=== PATIENT | male | born 1945 | race Caucasian/White ===

== ENCOUNTER 2017-02-23 11:58 | Inpatient (IN) | payer OTHER ==
--- NOTE | 2017-02-23 12:45 | PDOC ---
History of Present Illness <Nova Noland - Last Filed: 02/23/17 18:02> - General History Source: Patient Exam Limitations: No Limitations - History of Present Illness Initial Comments: 02/23/17 13:15 The patient is a 72 year old male with a significant past medical history of CHF , and A-fib, sent by Dr. Miller to the Emergency Department with shortness of breath and edema. As per the patients son, the patient was admitted to [facility] a couple weeks ago s/p fall and was diagnosed with a liver lac and internal bleeding, as he was on blood thinners. At [place] he was taken off blood thinners and placed on Lasix. Since discharged from [place] the patients son admits to a progressive increase in shortness of breath and edema. The patients son admits that his shortness of breath is exacerbated by standing, and cannot walk due to his symptoms. He also admits to orthopnea. On Monday the patient saw his magneto specialist who increased his Lasix dose to 2 pills per day. Today the patient saw his urologist, Dr. Miller who reported blood in his urine, and referred him to the ER due to his sob and edema. The patient denies cough, fever, and chills. Patient denies palpitations, or diaphoresis. Patient denies dysuria. Patient denies nausea, vomiting, and diarrhea. PCP: Dr. Guillen Urologist: Dr. Miller Wearing Apparel Shaker: Dr. Clement Dwyer <Melany Storm - Last Filed: 02/23/17 18:06> - General Chief Complaint: Shortness of Breath Stated Complaint: PCP SENT Time Seen by Provider: 02/23/17 12:45 Past History - Past Medical History Diabetes: Yes HTN: Yes Hypercholesterolemia: Yes - Psycho/Social/Smoking Cessation Hx Suicidal Ideation: No Smoking History: Never smoked <Nova Noland - Last Filed: 02/23/17 18:02> <Melany Storm - Last Filed: 02/23/17 18:06> - Past Medical History Allergies/Adverse Reactions: Allergies Allergy/AdvReac Type Severity Reaction Status Date / Time codeine Allergy Verified 02/23/17 12:22 iodine Allergy Verified 02/23/17 12:22 Home Medications: Ambulatory Orders Amlodipine Besylate 10 mg PO DAILY 02/23/17 Atenolol [Tenormin -] 25 mg PO DAILY 02/23/17 Citalopram Hydrobromide [Celexa -] 20 mg PO DAILY 02/23/17 Clonidine Patch [Catapres Tts Patch -] 0.2 mg TD WEEKLY 02/23/17 Enalapril/Hydrochlorothiazide [Vaseretic 10-25 mg Tablet] 1 each PO DAILY Hydralazine HCl 10 mg PO DAILY 02/23/17 Insulin Glargine,Hum.rec.anlog [Lantus Solostar PEN (NF)] 24 units SQ DAILY Ipratropium/Albuterol Sulfate [Iprat-Albut 0.5-3(2.5) mg/3 ml] 3 ml IH Q6H PRN 02/23/17 Metformin HCl 500 mg PO BID 02/23/17 Tamsulosin HCl [Flomax] 0.4 mg PO DAILY 02/23/17 Review of Systems - Review of Systems Able to Perform ROS?: Yes Comments:: 02/23/17 13:17 CONSTITUTIONAL: Absent: fever, no chills, no fatigue EYES: Absent: visual changes ENT: Absent: ear pain, no sore throat CARDIOVASCULAR: Absent: chest pain, no palpitations RESPIRATORY: Present: + shortness of breath, + SOB on exertion, + orthopnea Absent: cough ABDOMEN: Present: + abdominal distention secondary to edema GI: Absent: abdominal pain, no nausea, no vomiting, no constipation, no diarrhea GENITOURINARY: Present: + hematuria Absent: dysuria, no frequency MUSCULOSKELETAL: Absent: back pain, no arthralgia, no myalgia SKIN: Absent: rash NEURO: Absent: headache <Melany Storm - Last Filed: 02/23/17 18:06> *Physical Exam - Vital Signs Last Vital Signs Temp Pulse Resp BP Pulse Ox 97.9 F 71 28 H 151/112 97 02/23/17 12:22 02/23/17 12:22 02/23/17 12:22 02/23/17 12:22 02/23/17 12:22 <Nova Noland - Last Filed: 02/23/17 18:02> - Vital Signs Last Vital Signs Temp Pulse Resp BP Pulse Ox 97.9 F 71 28 H 151/112 97 02/23/17 12:22 02/23/17 12:22 02/23/17 12:22 02/23/17 12:22 02/23/17 12:22 - Physical Exam Comments: 02/23/17 13:18 GENERAL: Well developed, well nourished. Awake and alert. No acute distress. HEENT: Normocephalic, atraumatic. PERRLA, EOMI. No conjunctival pallor. Sclera are non- icteric. Moist mucous membranes. Oropharynx is clear. NECK: Supple. Full ROM. No JVD. Carotid pulses 2+ and symmetric, without bruits. No thyromegaly. No lymphadenopathy. CARDIOVASCULAR: Regular rate and rhythm. No murmurs, rubs, or gallops. Distal pulses are 2+ and symmetric. PULMONARY: Decreased breath sounds at lung bases bilaterally. No wheezing, rales or rhonchi. ABDOMINAL: Mildly distended secondary to edema, but nontender. Soft. No rebound or guarding. No organomegaly. Normoactive bowel sounds. MUSCULOSKELETAL Normal range of motion at all joints. No bony deformities or tenderness. No CVA tenderness. EXTREMITIES: 3+ pitting edema to just above the knee bilaterally. No cyanosis. No clubbing. No calf tenderness. SKIN: Warm and dry. Normal capillary refill. No rashes. No jaundice. NEUROLOGICAL: Alert, awake, appropriate. Cranial nerves 2-12 intact. PSYCHIATRIC: Cooperative. Good eye contact. Appropriate mood and affect. <Melany Storm - Last Filed: 02/23/17 18:06> ED Treatment Course - LABORATORY CBC & Chemistry Diagram: 02/23/17 14:42 02/23/17 14:42 <Nova Noland - Last Filed: 02/23/17 18:02> - LABORATORY CBC & Chemistry Diagram: 02/23/17 14:42 02/23/17 14:42 - RADIOLOGY Radiograph Interpretation: 02/23/17 18:06 Chest XRay As reviewed by Dr. Stanislav Collier IMPRESSION: Cardiomegaly and COPD, no acute pathology. <Melany Storm - Last Filed: 02/23/17 18:06> Medical Decision Making - Medical Decision Making 02/23/17 15:16 Pt presents to the ED complaining of a two week history of worsening peripheral edema, shortness of breath, POSADAS and orthopnea. History of CHF, known a fib. Recently admitted to [facility] for liver laceration--anticoagulation was stopped at that time. Patient and family state that patient was feeling better while admitted, but has SOB has been getting gradually worse. On exam, patient is tachypneic and becomes short of breath with just moving in the stretcher. Seen by outpatient magneto specialist, who has doubled his PO lasix with no response. Most likely acute CHF exacerbation. Will treat with lasix and admit to telemetry. <Nova Noland - Last Filed: 02/23/17 18:02> - Medical Decision Making 02/23/17 17:15 Dr. Uribe was called at her office at 4:43. Awaiting call back. 02/23/17 17:59 Dr. Wellington was called at her office at 5:30. Awaiting call back. Dr. Wellington was called at 5:50, and spoke to Dr. Noland about the patient's care. <Melany Storm - Last Filed: 02/23/17 18:06> *DC/Admit/Observation/Transfer - Discharge Dispostion Admit: Yes Decision to Admit order Date/Time: 02/23/17 18:02 <Nova Noland - Last Filed: 02/23/17 18:02> - Attestations Scribe Attestion: 02/23/17 13:18 Documentation prepared by Melany Storm, acting as medical office scheduler for Nova Noland MD. <Melany Storm - Last Filed: 02/23/17 18:06> Diagnosis at time of Disposition: Congestive heart failure Qualifiers: Congestive heart failure type: unspecified congestive heart failure type Congestive heart failure chronicity: acute on chronic Qualified Code(s): I50.9 - Heart failure, unspecified - Referrals Referrals: Stanislaw Guillen MD [Primary Care Provider] -
[2017-02-23] MEDS ORDERED: FUROSEMIDE 40 MG/4 ML INJECTABLE VIAL IVPUSH ONE (13:07)
[2017-02-23] MEDS ORDERED: FUROSEMIDE 40 MG/4 ML INJECTABLE VIAL ONE (13:57)
[2017-02-23 15:23] LABS: BASOPHIL 0.5 % (0-2.0); EOSINOPHIL 0.7 % (0-4.5); MCH 31.1 pg (25.7-33.7); MCHC 32.7 g/dl (32.0-35.9); MEAN CELL VOLUME 95.3 fl (80-96); MEAN PLT VOLUME 8.8 fl (7.5-11.1); NEUTROPHILS 65.8 % (42.8-82.8); PLATELET COUNT 196 K/MM3 (134-434); RDW 16.6 % (11.9-15.9); WHITE BLOOD COUNT 6.8 K/mm3 (4.0-10.0)
[2017-02-23 15:48] LABS: ALBUMIN 3.1 g/dl (3.4-5.0); ANION GAP 9 (8-16); CALCIUM 8.7 mg/dL (8.5-10.1); CO2 28 mmol/L (21-32); GLUCOSE,RANDOM 51 mg/dL (74-106); SGPT/ALT 39 U/L (12-78)
[2017-02-23 15:50] LABS: ALK PHOS 69 U/L (45-117); TROPONIN I < 0.02 ng/ml (0.00-0.05)
[2017-02-23 15:52] LABS: SGOT/AST 37 U/L (15-37)
--- NOTE | 2017-02-23 16:34 | EKG ---
Test Reason : Blood Pressure : / mmHG Vent. Rate : 078 BPM Atrial Rate : 069 BPM P-R Int : 000 ms QRS Dur : 088 ms QT Int : 376 ms P-R-T Axes : 000 013 -37 degrees QTc Int : 428 ms ATRIAL FIBRILLATION POSSIBLE ANTERIOR INFARCT , AGE UNDETERMINED ABNORMAL ECG NO PREVIOUS ECGS AVAILABLE Confirmed by ZEESHAN EMERSON, ELENA ([id number]) on 02/23/2017 4:34:21 PM Referred By: Confirmed By:ELENA BYERS MD
[2017-02-24] MEDS ORDERED: ALBUTEROL SO4 2.5/IPRATROPIUM 0.5 INH SOL 3 ML VIAL.NEB. NEB PRN (02:12)
[2017-02-24 06:04] LABS: BASOPHIL 0.5 % (0-2.0); EOSINOPHIL 1.5 % (0-4.5); MCH 31.4 pg (25.7-33.7); MCHC 32.8 g/dl (32.0-35.9); MEAN CELL VOLUME 95.6 fl (80-96); MEAN PLT VOLUME 7.9 fl (7.5-11.1); NEUTROPHILS 62.8 % (42.8-82.8); PLATELET COUNT 185 K/MM3 (134-434); RDW 16.7 % (11.9-15.9); WHITE BLOOD COUNT 5.7 K/mm3 (4.0-10.0)
[2017-02-24 06:32] LABS: ALBUMIN 3.2 g/dl (3.4-5.0); ALK PHOS 70 U/L (45-117); ANION GAP 6 (8-16); BILIRUBIN,TOTAL 1.1 mg/dL (0.2-1.0); CALCIUM 8.7 mg/dL (8.5-10.1); CO2 33 mmol/L (21-32); CREATININE 1.2 mg/dL (0.7-1.3); GLUCOSE,RANDOM 110 mg/dL (74-106); SGOT/AST 27 U/L (15-37); SGPT/ALT 35 U/L (12-78); TOT PROT 6.9 g/dl (6.4-8.2)
[2017-02-24 06:45] LABS: TROPONIN I < 0.02 ng/ml (0.00-0.05)
[2017-02-24] MEDS ORDERED: metFORMIN HCL 500 MG TABLET (FP) ONE (07:01)
[2017-02-24] MEDS: metFORMIN HCL 500 MG TABLET (FP) PO SCH ×2 (08:09→17:21)
[2017-02-24] MEDS: cloNIDine HCL 0.1 MG TABLET PO SCH ×2 (09:00→22:43)
[2017-02-24] MEDS: TAMSULOSIN HCL 0.4 MG CAP.ER.24H (FP) PO SCH (09:00)
--- NOTE | 2017-02-24 09:00 | CON.CARD ---
Consult Consult Specialty:: Cardiology Referred by:: ER Reason for Consultation:: SOB, edema, chf, afib - History of Present Illness Chief Complaint: SOB, edema History of Present Illness: 72 year old man with a history of afib reportedly taken off AC recently after a fall with liver laceration and bleeding, reported h/o CHF (unknown details), obesity, admitted with c/o progressively worsening sob, LE edema, orthopnea. Pt seen and examined in the ER in [place]. pt states that he was sent to the ER by his urologist who he saw for hematuria due to edema and sob. pt states that he saw his width stripper Dr. Dwyer 3 weeks ago and he believes everything was ok but as report his lasix was increased. PT states he has had progressively worsening sob , edema, and orthopnea for the past several weeks. denies chest pain, palpitations, lightheadedness, dizziness, syncope, or near syncope. - History Source History Provided By: Patient, Medical Record Limitations to Obtaining History: Poor Historian - Past Medical History Cardio/Vascular: Yes: AFIB, CHF, HTN, Hyperlipdemia - Smoking History Smoking history: Never smoked - Social History ADL: Independent History of Recent Travel: No Home Medications - Allergies Allergies/Adverse Reactions: Allergies Allergy/AdvReac Type Severity Reaction Status Date / Time codeine Allergy Verified 02/23/17 12:22 iodine Allergy Verified 02/23/17 12:22 - Home Medications Home Medications: Ambulatory Orders Amlodipine Besylate 10 mg PO DAILY 02/23/17 Atenolol [Tenormin -] 25 mg PO DAILY 02/23/17 Citalopram Hydrobromide [Celexa -] 20 mg PO DAILY 02/23/17 Clonidine HCl 0.2 mg PO BID 02/23/17 Furosemide [Lasix] 40 mg PO DAILY 02/23/17 Insulin Glargine,Hum.rec.anlog [Lantus Solostar PEN (NF)] 24 units SQ DAILY Ipratropium/Albuterol Sulfate [Iprat-Albut 0.5-3(2.5) mg/3 ml] 3 ml IH Q6H PRN 02/23/17 Metformin HCl 500 mg PO BID 02/23/17 Tamsulosin HCl [Flomax] 0.4 mg PO DAILY 02/23/17 Family Disease History - Family Disease History Family History: Denies Review of Systems - Review of Systems Constitutional: denies: No Symptoms, Chills, Diaphoresis, Fever, Lethargy, Loss of Appetite, Malaise, Night Sweats, Unintentional Wgt. Loss, Weakness, Other Eyes: denies: No Symptoms, Blind Spots, Blurred Vision, Double Vision, Eye Pain , Floaters, Photophobia, Recent Change in Vision, Other HENT: denies: No Symptoms, Difficult Swallowing, Ear Discharge, Ear Pain, Epistaxis, Gingival Bleeding, Hearing Loss, Mouth Swelling, Nasal Congestion, Ocular Prosthesis, Throat Pain, Toothache, Ringing in Ears, Other Neck: denies: No Symptoms, Decreased ROM, Lumps, Pain on Movement, Stiffness, Swollen Glands, Tenderness, Other Cardiovascular: reports: Edema, Shortness of Breath. denies: No Symptoms, Chest Pain, Palpitations, Other Respiratory: reports: Exercise Intolerance, Orthopnea, PND, SOB, SOB on Exertion. denies: No Symptoms, Cough, Hemoptysis, Snoring, Wheezing, Other Gastrointestinal: denies: No Symptoms, Abdominal Pain, Bloating, Constipation, Diarrhea, Dysphagia, Indigestion, Melena, Nausea, Rectal Bleeding, Vomiting, Vomiting Blood, Other Genitourinary: reports: Hematuria. denies: No Symptoms, Burning, Discharge, Dysuria, Flank Pain, Frequency, Incontinence, Lesions, Menses, Pain, Testicular Mass, Testicular Pain, Testicular Swelling, Urgency, Vaginal Bleeding, Other Breasts: denies: No Symptoms Reported, See HPI, Breast Implants, Discharge from Nipple, Lumps, Pain, Skin Changes, Other Musculoskeletal: denies: No Symptoms, Back Pain, Crepitus, Decreased ROM, Extremity Pain, Joint Pain, Joint Swelling, Muscle Pain, Muscle Cramps, Muscle Weakness, Other Integumentary: denies: No Symptoms, Blister, Bruising, Change in Color, Eczema, Erythema, Incision, Lesions, Lump, Pallor, Pruritis, Rash, Wound, Other Neurological: denies: No Symptoms, Change in LOC, Change in Speech, Confusion, Dizziness, Headache, Incoordination, Numbness, Parasthesia, Pre-Existing Deficit , Seizure, Syncope, Tremors, Unsteady Gait, Weakness, Other Endocrine: denies: No Symptoms, Excessive Sweating, Flushing, Increased Hunger, Increased Thirst, Intolerance to Cold, Intolerance to Heat, Unexplained Weight Gain, Unexplained Weight Loss, Other Hematology/Lymphatic: denies: No Symptoms, Easily Bruised, Excessive Bleeding, Swollen Glands, Other Psychiatric: denies: No Symptoms, Altered Sleep Pattern, Anxiety, Depression, Hallucinations, Panic, Paranoia, Suicidal, Other - Risk Factors Known Risk Factors: Yes: Hypercholesterolemia, Hypertension Vital Signs: Vital Signs Temperature 98.2 F 02/24/17 07:50 Pulse Rate 82 02/24/17 07:50 Respiratory Rate 16 02/24/17 07:50 Blood Pressure 182/99 02/24/17 07:50 O2 Sat by Pulse Oximetry (%) 95 02/24/17 07:50 Constitutional: Yes: No Distress, Calm, Obese. No: Well Nourished Eyes: Yes: WNL, Conjunctiva Clear, EOM Intact, PERRL HENT: Yes: WNL, Atraumatic, Normocephalic Neck: Yes: WNL, Supple, Trachea Midline Respiratory: Yes: Regular, CTA Bilaterally. No: Rales, Rhonchi, Wheezes Gastrointestinal: Yes: Normal Bowel Sounds, Soft, Abdomen, Obese. No: Distention, Tenderness Renal/: Yes: WNL Cardiovascular: Yes: Pulse Irregular. No: Bradycardia, Tachycardia, Gallop, Rub , Varicosities JVD: No Carotid Bruit: No PMI: Non-Displaced Heart Sounds: Yes: S1, S2. No: Split S2, S3, S4, Clicks, Gallop, Rub, Bruit Murmur: No: Systolic Murmur, Diastolic Murmur Musculoskeletal: Yes: WNL Extremities: Yes: WNL Edema: Yes Edema: LLE: 2+, RLE: 2+ Peripheral Pulses WNL: Yes Peripheral Pulses: 2+ Left Doralis Pedis, 2+ Right Dorsalis Pedis Integumentary: Yes: WNL Neurological: Yes: Alert, Oriented, Cran Nerves II-XII Intact Psychiatric: Yes: Alert, Oriented - Other Data Labs, Other Data: CBC, BMP 02/24/17 05:43 02/24/17 05:43 Troponin, BNP 02/24/17 05:43 Troponin I < 0.02 Troponin, BNP 02/24/17 05:43 Troponin I < 0.02 ekg-afib 78bpm, poor R progression, nsst Echo: Image Reviewed Imaging - Results Chest X-ray: Report Reviewed, Image Reviewed EKG: Report Reviewed, Image Reviewed Other: Report Reviewed, Image Reviewed Assessment/Plan 72 year old man with a history of afib reportedly taken off AC recently after a fall with liver laceration and bleeding, reported h/o CHF (unknown details), obesity, admitted with c/o progressively worsening sob, LE edema, orthopnea. pt states that he was sent to the ER by his urologist who he saw for hematuria due to edema and sob. pt states that he saw his width stripper Dr. Dwyer 3 weeks ago and he believes everything was ok but as report his lasix was increased. SOB-uncertain etiology, likely multifactorial, Lungs are clear, 2+ edema b/l LE Echo prelim reviewed at bedside, normal LV systolic function, full result pending Can cont Lasix for now with caution given elevated bun/creat Pulm evaluation Obtain results of prior work up, pt states he saw a width stripper Dr. Dwyer in [place] 3 weeks ago and he believes there was no problem with his heart cont other home medical regimen for now Afib-HR controlled -cont home atenolol -as per report taken off AC recently at [facility] after a fall with liver laceration and hemorrhage, clarify the details and AC plan that was established HTN-above goal -resume home meds and re-evaluate for adjustment as needed
[2017-02-24] MEDS: CITALOPRAM HYDROBROMIDE 20 MG TABLET (FP) PO SCH (09:01)
[2017-02-24] MEDS: FUROSEMIDE 40 MG/4 ML INJECTABLE VIAL IVPUSH SCH (09:01)
[2017-02-24] MEDS: amLODIPine BESYLATE 10 MG TABLET (FP) PO SCH (09:01)
[2017-02-24] MEDS: ATENOLOL 25 MG TABLET (FP) PO SCH (09:02)
[2017-02-24] MEDS ORDERED: FUROSEMIDE 40 MG TABLET (FP) PO SCH (10:00)
[2017-02-24] MEDS: INSULIN DETEMIR 100 UNITS/ML MDV SQ SCH (11:00)
--- NOTE | 2017-02-24 13:33 | CONSULT ---
Consult - text type - Consultation Consultation Note: The patient is a 72 year old male with a significant past medical history of CHF , and A-fib, comes in with shortness of breath and edema. The patient was admitted to [facility] a couple weeks ago s/p fall and was diagnosed with a liver lac and internal bleeding, as he was on blood thinners. At [place] he was taken off blood thinners and placed on Lasix. Since discharged from [place] he has had progressive increase in shortness of breath and edema. The patients son admits that his shortness of breath is exacerbated by standing, and cannot walk due to his symptoms. He also admits to orthopnea. On Monday the patient saw his bobbin dumper who increased his Lasix dose to 2 pills per day. Today the patient saw his urologist, Dr. Miller who reported blood in his urine, and referred him to the ER due to his sob and edema. The patient denies cough, fever, and chills. Patient denies palpitations, or diaphoresis. Patient denies dysuria. Patient denies nausea, vomiting, and diarrhea. - Past Medical History Diabetes: Yes HTN: Yes Hypercholesterolemia: Yes - Psycho/Social/Smoking Cessation Hx Smoking History: Never smoked Allergies/Adverse Reactions: Allergies Allergy/AdvReac Type Severity Reaction Status Date / Time codeine Allergy Verified 02/23/17 12:22 iodine Allergy Verified 02/23/17 12:22 Home Medications: Ambulatory Orders Amlodipine Besylate 10 mg PO DAILY 02/23/17 Atenolol [Tenormin -] 25 mg PO DAILY 02/23/17 Citalopram Hydrobromide [Celexa -] 20 mg PO DAILY 02/23/17 Clonidine Patch [Catapres Tts Patch -] 0.2 mg TD WEEKLY 02/23/17 Enalapril/Hydrochlorothiazide [Vaseretic 10-25 mg Tablet] 1 each PO DAILY Hydralazine HCl 10 mg PO DAILY 02/23/17 Insulin Glargine,Hum.rec.anlog [Lantus Solostar PEN (NF)] 24 units SQ DAILY Ipratropium/Albuterol Sulfate [Iprat-Albut 0.5-3(2.5) mg/3 ml] 3 ml IH Q6H PRN 02/23/17 Metformin HCl 500 mg PO BID 02/23/17 Tamsulosin HCl [Flomax] 0.4 mg PO DAILY 02/23/17 Home Medication List Medication Instructions Recorded Confirmed Type Amlodipine Besylate 10 mg PO DAILY 02/23/17 02/23/17 History Atenolol [Tenormin -] 25 mg PO DAILY 02/23/17 02/23/17 History Citalopram Hydrobromide [Celexa -] 20 mg PO DAILY 02/23/17 02/23/17 History Clonidine HCl 0.2 mg PO BID 02/23/17 02/23/17 History Furosemide [Lasix] 40 mg PO DAILY 02/23/17 02/23/17 History Insulin Glargine,Hum.rec.anlog 24 units SQ DAILY 02/23/17 02/23/17 History [Lantus Solostar PEN (NF)] Ipratropium/Albuterol Sulfate 3 ml IH Q6H PRN 02/23/17 02/23/17 History [Iprat-Albut 0.5-3(2.5) mg/3 ml] Metformin HCl 500 mg PO BID 02/23/17 02/23/17 History Tamsulosin HCl [Flomax] 0.4 mg PO DAILY 02/23/17 02/23/17 History Active Medications Generic Name Dose Route Start Last Admin Trade Name Freq PRN Reason Stop Dose Admin Albuterol/Ipratropium 1 amp 02/24/17 02:12 Duoneb - NEB Q6H PRN SHORT OF BREATH/WHEEZING Amlodipine Besylate 10 mg 02/24/17 10:00 02/24/17 09:01 Norvasc - PO 10 mg DAILY DELFIN Administration Atenolol 25 mg 02/24/17 10:00 02/24/17 09:02 Tenormin - PO 25 mg DAILY DELFIN Administration Citalopram Hydrobromide 20 mg 02/24/17 10:00 02/24/17 09:01 Celexa - PO 20 mg DAILY DELFIN Administration Clonidine 0.2 mg 02/24/17 10:00 02/24/17 09:00 Catapres - PO 0.2 mg BID DELFIN Administration Furosemide 40 mg 02/24/17 10:00 02/24/17 09:01 Lasix Injection - IVPUSH 40 mg DAILY DELFIN Administration Insulin Detemir 24 units 02/24/17 10:00 02/24/17 11:00 Levemir Vial SQ 24 unit DAILY DELFIN Administration Metformin HCl 500 mg 02/24/17 07:00 02/24/17 08:09 Glucophage - PO 500 mg BIDAC DELFIN Administration Tamsulosin HCl 0.4 mg 02/24/17 08:30 02/24/17 09:00 Flomax - PO 0.4 mg DAILY@0830 DELFIN Administration *Physical Exam - Vital Signs Last Vital Signs Temp Pulse Resp BP Pulse Ox 97.9 F 71 28 H 151/112 97 02/23/17 12:22 02/23/17 12:22 02/23/17 12:22 02/23/17 12:22 02/23/17 12:22 Cor: RSR, No murmurs, No gallops Lungs: Clear to P&A Abd: Soft, Normal bowel sounds, No organomegaly, obese Ext:stasis dermatitis. chronic edema - Abnormal Lab Results 02/23/17 02/23/17 02/24/17 14:42 14:42 05:43 RDW 16.6 H Monocytes % 11.7 H Carbon Dioxide Anion Gap BUN 52 H Random Glucose 51 L Total Bilirubin Creatine Kinase 36 L B-Natriuretic Peptide 3698.69 H Albumin 3.1 L 02/24/17 02/24/17 05:43 05:43 RDW 16.7 H Monocytes % 12.7 H Carbon Dioxide 33 H Anion Gap 6 L BUN 53 H Random Glucose 110 H D Total Bilirubin 1.1 H Creatine Kinase B-Natriuretic Peptide Albumin 3.2 L A/P Pt presents to the ED complaining of a two week history of worsening peripheral edema, shortness of breath, POSADAS and orthopnea. History of CHF, known a fib. Recently admitted to [facility] for liver laceration--anticoagulation was stopped at that time. Patient and family state that patient was feeling better while admitted, but has SOB has been getting gradually worse. On exam, patient is tachypneic and becomes short of breath with just moving in the stretcher. Seen by outpatient bobbin dumper, who has doubled his PO lasix with no response. Most likely acute CHF exacerbation. PAtient does not recall how long he has been on coumadin. He says 6months and ca ,me off 2 weeks ago. He states that he did not fall but says that he was sitting at the counterand stooped forward over the counter. Will need to determine his a/c situation with cardiology team will check PT/PTT check U/S abdomen Reverse AG ratio --check protein studies will follow
[2017-02-24 13:39] VITALS: BMI 35.3
[2017-02-24] MEDS ORDERED: PNEUMOC 13-VAL CONJ-DIP CRM/PF 0.5 ML DISP.SYRIN IM ONE (14:45)
--- NOTE | 2017-02-24 16:39 | HP ---
Admitting History and Physical - Past Medical History Cardiovascular: Yes: AFIB, CHF, HTN, Hyperlipdemia - Smoking History Smoking history: Never smoked - Alcohol/Substance Use Hx Alcohol Use: Yes (occassional beer) - Social History ADL: Independent History of Recent Travel: No Home Medications - Allergies Allergies/Adverse Reactions: Allergies Allergy/AdvReac Type Severity Reaction Status Date / Time codeine Allergy Verified 02/23/17 12:22 iodine Allergy Verified 02/23/17 12:22 - Home Medications Home Medications: Ambulatory Orders Amlodipine Besylate 10 mg PO DAILY 02/23/17 Atenolol [Tenormin -] 25 mg PO DAILY 02/23/17 Citalopram Hydrobromide [Celexa -] 20 mg PO DAILY 02/23/17 Clonidine HCl 0.2 mg PO BID 02/23/17 Furosemide [Lasix] 40 mg PO DAILY 02/23/17 Insulin Glargine,Hum.rec.anlog [Lantus Solostar PEN (NF)] 24 units SQ DAILY Ipratropium/Albuterol Sulfate [Iprat-Albut 0.5-3(2.5) mg/3 ml] 3 ml IH Q6H PRN 02/23/17 Metformin HCl 500 mg PO BID 02/23/17 Tamsulosin HCl [Flomax] 0.4 mg PO DAILY 02/23/17 Physical Examination Vital Signs: Vital Signs Temperature 98.0 F 02/24/17 14:50 Pulse Rate 70 02/24/17 14:50 Respiratory Rate 22 02/24/17 14:50 Blood Pressure 155/94 02/24/17 14:50 O2 Sat by Pulse Oximetry (%) 95 02/24/17 09:55 Labs: CBC, BMP 02/24/17 05:43 02/24/17 05:43
--- NOTE | 2017-02-24 17:11 | PN ---
Progress Note (short form) - Note Progress Note: PULMONARY CONSULTATION DICTATED 02/25/17 IMP DYSPNEA LIKELY CHF AFIB MORBID OBESITY LIKELY OSAS LIVER LACERATION PLAN IV LASIX O2 INHALED BRONCHODILATORS PRN DAILY WTS DUPLEX LOWER EXTREMITIES SLEEP STUDIES OUTPATIENT DR SIMON Problem List - Problems (1) Congestive heart failure Code(s): I50.9 - HEART FAILURE, UNSPECIFIED Qualifiers: Congestive heart failure type: unspecified congestive heart failure type Congestive heart failure chronicity: acute on chronic Qualified Code(s): I50.9 - Heart failure, unspecified (2) Afib Code(s): I48.91 - UNSPECIFIED ATRIAL FIBRILLATION (3) Dyspnea Code(s): R06.00 - DYSPNEA, UNSPECIFIED (4) Morbid (severe) obesity due to excess calories Code(s): E66.01 - MORBID (SEVERE) OBESITY DUE TO EXCESS CALORIES
[2017-02-24] MEDS: LISINOPRIL 5 MG TABLET (FP) PO SCH (17:21)
[2017-02-25] MEDS: metFORMIN HCL 500 MG TABLET (FP) PO SCH ×2 (06:40→18:01)
[2017-02-25 07:22] LABS: INR 1.36 (0.82-1.09)
[2017-02-25 07:25] LABS: ACTIVATED PTT 31.7 SECONDS (26.9-34.4)
[2017-02-25 07:29] LABS: CREATININE 1.2 mg/dL (0.7-1.3); SGOT/AST 19 U/L (15-37); SGPT/ALT 29 U/L (12-78)
[2017-02-25 07:31] LABS: ALBUMIN 2.9 g/dl (3.4-5.0); ANION GAP 8 (8-16); CALCIUM 8.5 mg/dL (8.5-10.1); CO2 32 mmol/L (21-32); GLUCOSE,RANDOM 78 mg/dL (74-106)
[2017-02-25 07:39] LABS: ALK PHOS 66 U/L (45-117); BASOPHIL 0.8 % (0-2.0); EOSINOPHIL 2.5 % (0-4.5); FERRITIN 444.742 ng/ml (16.4-293.9); FREE T4 1.16 ng/dl (0.76-1.16); MCHC 33.4 g/dl (32.0-35.9); MEAN CELL VOLUME 95.8 fl (80-96); MEAN PLT VOLUME 8.1 fl (7.5-11.1); NEUTROPHILS 69.3 % (42.8-82.8); PLATELET COUNT 158 K/MM3 (134-434); RDW 16.9 % (11.9-15.9); THYROID STIMULATING HORMONE 1.95 uIU/ml (0.358-3.74); TOT PROT 6.2 g/dl (6.4-8.2); WHITE BLOOD COUNT 5.6 K/mm3 (4.0-10.0)
--- NOTE | 2017-02-25 08:44 | CONS ---
DATE OF CONSULTATION: 02/24/2017 REFERRING PHYSICIAN: Gail Wellington MD HISTORY OF PRESENT ILLNESS: The patient is a 72-year-old white male with past atrial fibrillation, history of hypertension, CHF, hyperlipidemia, and nonsmoker, admitted to [facility] with complaint of two-week history of increasing shortness of breath and dyspnea on exertion and orthopnea. Patient was recently hospitalized a few weeks ago status post fall for which he sustained liver laceration and internal bleeding. At the time, he was on Coumadin. Apparently he was taken off his blood thinners and placed on Lasix. Apparently since discharge from [facility], patient had progressively increasing shortness of breath, dyspnea on exertion, and edema. He denies any fevers or chills. He denies any chest pain, nausea, vomiting, or diaphoresis. He presented to the emergency room with above. On admission, he was evaluated by Dr. Garcia for cardiology consultation. He thought the patient possibly had CHF. He also saw for hematology consultation. 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 There is no history of recent travel. There is no history of DVT or PE in the past. He denies any COPD/asthma in the past . PAST MEDICAL HISTORY: Again includes atrial fibrillation, CHF, hypertension, hyperlipidemia. REVIEW OF SYSTEMS: Positive dyspnea. No chest pain, no palpitations. Positive edema. Positive hematuria. Positive lower extremity edema. CURRENT MEDICATIONS: Include Prinivil, Flomax, Celexa, Duo-Neb, Tenormin, Glucophage, Norvasc, Lasix, and Levemir. PHYSICAL EXAMINATION: General: The patient is an obese male, well-developed, awake, alert, in no acute distress. Vital signs: He is currently afebrile, blood pressure 155/94, respiratory rate 22, O2 saturation is 95% on room air. HEENT: Head is normocephalic atraumatic. Neck: Supple. Heart: Irregularly irregular with normal S1, S2. Chest: Diminished breath sounds bilaterally. Abdomen: Soft. Bowel sounds positive. Extremities: Bilateral lower extremity edema. LABORATORIES: BUN 53, creatinine 1.2. BNP 3698. WBC is 5.7, hemoglobin 13, hematocrit 39.7, with a platelet count of 185,000. Chest x-ray reveals no infiltrates and no effusions. IMPRESSION: 1. Dyspnea likely secondary to multiple factors congestive heart failure. 2. History of atrial fibrillation. 3. Patient denies any chronic obstructive pulmonary disease. Patient denies any history of occupational exposures, denies smoking history. 4. Morbid obesity. 5. Likely obstructive sleep apnea syndrome. PLAN: Continue Lasix, daily weights, obtain lower extremity duplex, rule out DVT, supplemental O2, consider sleep study as an outpatient, echocardiogram. DEJUAN SIMON M.D. [id number]
--- NOTE | 2017-02-25 08:45 | PN ---
Progress Note, Physician Chief Complaint: seen and examined in ICU Sitting comfortably No chest pain or SOB Lisinopril started yesterday for HTN History of Present Illness: TELE: AF, controlled. Pauses intermittently < 2.5 seconds. - Current Medication List Current Medications: Active Medications Albuterol/Ipratropium (Duoneb -) 1 amp NEB Q6H PRN PRN Reason: SHORT OF BREATH/WHEEZING Amlodipine Besylate (Norvasc -) 10 mg PO DAILY [facility] Last Admin: 02/24/17 09:01 Dose: 10 mg Atenolol (Tenormin -) 25 mg PO DAILY [facility] Last Admin: 02/24/17 09:02 Dose: 25 mg Citalopram Hydrobromide (Celexa -) 20 mg PO DAILY [facility] Last Admin: 02/24/17 09:01 Dose: 20 mg Clonidine (Catapres -) 0.2 mg PO BID [facility] Last Admin: 02/24/17 22:43 Dose: 0.2 mg Furosemide (Lasix Injection -) 40 mg IVPUSH DAILY [facility] Last Admin: 02/24/17 09:01 Dose: 40 mg Insulin Detemir (Levemir Vial) 24 units SQ DAILY [facility] Last Admin: 02/24/17 11:00 Dose: 24 unit Lisinopril (Prinivil) 2.5 mg PO DAILY [facility] Last Admin: 02/24/17 17:21 Dose: 2.5 mg Metformin HCl (Glucophage -) 500 mg PO BIDAC [facility] Last Admin: 02/25/17 06:40 Dose: 500 mg Tamsulosin HCl (Flomax -) 0.4 mg PO DAILY@0830 [facility] Last Admin: 02/24/17 09:00 Dose: 0.4 mg - Objective Vital Signs: Vital Signs Temperature 98.1 F 02/25/17 06:00 Pulse Rate 71 02/25/17 08:05 Respiratory Rate 20 02/25/17 08:05 Blood Pressure 144/94 02/25/17 08:05 O2 Sat by Pulse Oximetry (%) 95 02/25/17 01:48 Constitutional: Yes: No Distress, Calm Eyes: Yes: Conjunctiva Clear Cardiovascular: Yes: Pulse Irregular Respiratory: Yes: CTA Bilaterally Gastrointestinal: Yes: Soft Edema: Yes Edema: LLE: 1+, RLE: 1+ Neurological: Yes: Alert, Oriented Labs: CBC, BMP 02/25/17 05:20 02/25/17 05:20 INR, PTT INR 1.36 (0.82-1.09) H 02/25/17 05:20 - ....Imaging EKG: Image Reviewed Assessment/Plan 72 year old man with a history of afib reportedly taken off AC recently after a fall with liver laceration and bleeding as well as hematuria; reported h/o CHF ( probably diastolic), obesity, admitted with c/o progressively worsening sob, LE edema, orthopnea. SOB-uncertain etiology, likely multifactorial: chronic diastolic CHF, PHTN. -echo w/ normal LV fxn, PHTN. -Pulm evaluation in progress -Would continue with IV Lasix for one more day, then transition to PO Afib-HR controlled: -cont home atenolol -as per report taken off AC recently at [facility] after a fall with liver laceration and hemorrhage, clarify the details and AC plan that was established there -If cannot be fully anticoagulated, would start ASA 81mg daily.
[2017-02-25] MEDS: cloNIDine HCL 0.1 MG TABLET PO SCH ×2 (09:37→22:31)
[2017-02-25] MEDS: amLODIPine BESYLATE 10 MG TABLET (FP) PO SCH (09:38)
[2017-02-25] MEDS: TAMSULOSIN HCL 0.4 MG CAP.ER.24H (FP) PO SCH (09:38)
[2017-02-25] MEDS: ATENOLOL 25 MG TABLET (FP) PO SCH (09:38)
[2017-02-25] MEDS: CITALOPRAM HYDROBROMIDE 20 MG TABLET (FP) PO SCH (09:38)
[2017-02-25] MEDS: LISINOPRIL 5 MG TABLET (FP) PO SCH (09:38)
[2017-02-25] MEDS: FUROSEMIDE 40 MG/4 ML INJECTABLE VIAL IVPUSH SCH (09:39)
--- NOTE | 2017-02-25 09:42 | PN ---
Progress Note, Physician History of Present Illness: pulmonary alert,less dyspneic,oob-chair,-cp. duplex -dvt - Current Medication List Current Medications: Active Medications Albuterol/Ipratropium (Duoneb -) 1 amp NEB Q6H PRN PRN Reason: SHORT OF BREATH/WHEEZING Amlodipine Besylate (Norvasc -) 10 mg PO DAILY [facility] Last Admin: 02/24/17 09:01 Dose: 10 mg Atenolol (Tenormin -) 25 mg PO DAILY [facility] Last Admin: 02/24/17 09:02 Dose: 25 mg Citalopram Hydrobromide (Celexa -) 20 mg PO DAILY [facility] Last Admin: 02/24/17 09:01 Dose: 20 mg Clonidine (Catapres -) 0.2 mg PO BID [facility] Last Admin: 02/24/17 22:43 Dose: 0.2 mg Furosemide (Lasix Injection -) 40 mg IVPUSH DAILY [facility] Last Admin: 02/24/17 09:01 Dose: 40 mg Insulin Detemir (Levemir Vial) 24 units SQ DAILY [facility] Last Admin: 02/24/17 11:00 Dose: 24 unit Lisinopril (Prinivil) 2.5 mg PO DAILY [facility] Last Admin: 02/24/17 17:21 Dose: 2.5 mg Metformin HCl (Glucophage -) 500 mg PO BIDAC [facility] Last Admin: 02/25/17 06:40 Dose: 500 mg Tamsulosin HCl (Flomax -) 0.4 mg PO DAILY@0830 [facility] Last Admin: 02/24/17 09:00 Dose: 0.4 mg - Objective Vital Signs: Vital Signs Temperature 98.1 F 02/25/17 06:00 Pulse Rate 71 02/25/17 08:05 Respiratory Rate 20 02/25/17 08:05 Blood Pressure 144/94 02/25/17 08:05 O2 Sat by Pulse Oximetry (%) 95 02/25/17 01:48 Constitutional: Yes: Calm, Obese Eyes: Yes: WNL HENT: Yes: WNL Neck: Yes: WNL Cardiovascular: Yes: Pulse Irregular, S1, S2 Respiratory: Yes: Diminished Gastrointestinal: Yes: Normal Bowel Sounds, Soft Extremities: Yes: WNL Edema: Yes Labs: CBC, BMP 02/25/17 05:20 02/25/17 05:20 INR, PTT INR 1.36 (0.82-1.09) H 02/25/17 05:20 Problem List - Problems (1) Congestive heart failure Code(s): I50.9 - HEART FAILURE, UNSPECIFIED Qualifiers: Congestive heart failure type: unspecified congestive heart failure type Congestive heart failure chronicity: acute on chronic Qualified Code(s): I50.9 - Heart failure, unspecified (2) Afib Code(s): I48.91 - UNSPECIFIED ATRIAL FIBRILLATION (3) Dyspnea Code(s): R06.00 - DYSPNEA, UNSPECIFIED (4) Morbid (severe) obesity due to excess calories Code(s): E66.01 - MORBID (SEVERE) OBESITY DUE TO EXCESS CALORIES Assessment/Plan IMP DYSPNEA LIKELY CHF AFIB MORBID OBESITY LIKELY OSAS LIVER LACERATION PLAN CONTINUE IV LASIX O2 INHALED BRONCHODILATORS PRN DAILY WTS SLEEP STUDIES OUTPATIENT DR SIMON Problem List - Problems (1) Congestive heart failure Code(s): I50.9 - HEART FAILURE, UNSPECIFIED Qualifiers: Congestive heart failure type: unspecified congestive heart failure type Congestive heart failure chronicity: acute on chronic Qualified Code(s): I50.9 - Heart failure, unspecified (2) Afib Code(s): I48.91 - UNSPECIFIED ATRIAL FIBRILLATION (3) Dyspnea Code(s): R06.00 - DYSPNEA, UNSPECIFIED (4) Morbid (severe) obesity due to excess calories Code(s): E66.01 - MORBID (SEVERE) OBESITY DUE TO EXCESS CALORIES
[2017-02-25] MEDS: INSULIN DETEMIR 100 UNITS/ML MDV SQ SCH (10:20)
--- NOTE | 2017-02-25 23:50 | PN ---
Progress Note, Physician - Current Medication List Current Medications: Active Medications Albuterol/Ipratropium (Duoneb -) 1 amp NEB Q6H PRN PRN Reason: SHORT OF BREATH/WHEEZING Amlodipine Besylate (Norvasc -) 10 mg PO DAILY [facility] Last Admin: 02/25/17 09:38 Dose: 10 mg Atenolol (Tenormin -) 25 mg PO DAILY [facility] Last Admin: 02/25/17 09:38 Dose: 25 mg Citalopram Hydrobromide (Celexa -) 20 mg PO DAILY [facility] Last Admin: 02/25/17 09:38 Dose: 20 mg Clonidine (Catapres -) 0.2 mg PO BID [facility] Last Admin: 02/25/17 22:31 Dose: 0.2 mg Furosemide (Lasix Injection -) 40 mg IVPUSH DAILY [facility] Last Admin: 02/25/17 09:39 Dose: 40 mg Insulin Detemir (Levemir Vial) 24 units SQ DAILY [facility] Last Admin: 02/25/17 10:20 Dose: 24 unit Lisinopril (Prinivil) 2.5 mg PO DAILY [facility] Last Admin: 02/25/17 09:38 Dose: 2.5 mg Metformin HCl (Glucophage -) 500 mg PO BIDAC [facility] Last Admin: 02/25/17 18:01 Dose: 500 mg Tamsulosin HCl (Flomax -) 0.4 mg PO DAILY@0830 [facility] Last Admin: 02/25/17 09:38 Dose: 0.4 mg - Objective Vital Signs: Vital Signs Temperature 97.7 F 02/25/17 15:00 Pulse Rate 63 02/25/17 15:00 Respiratory Rate 20 02/25/17 15:00 Blood Pressure 130/83 02/25/17 15:00 O2 Sat by Pulse Oximetry (%) 95 02/25/17 09:00 Labs: CBC, BMP 02/25/17 05:20 02/25/17 05:20 INR, PTT INR 1.36 (0.82-1.09) H 02/25/17 05:20
[2017-02-26] MEDS: metFORMIN HCL 500 MG TABLET (FP) PO SCH ×2 (06:28→18:01)
[2017-02-26] MEDS: TAMSULOSIN HCL 0.4 MG CAP.ER.24H (FP) PO SCH (08:40)
--- NOTE | 2017-02-26 09:02 | PN ---
Progress Note, Physician Chief Complaint: no distress, sitting up eating. Denies chest pain or SOB TELE: reviewed. AF, overall rates controlled. No significant pauses > 3 seconds. - Current Medication List Current Medications: Active Medications Albuterol/Ipratropium (Duoneb -) 1 amp NEB Q6H PRN PRN Reason: SHORT OF BREATH/WHEEZING Amlodipine Besylate (Norvasc -) 10 mg PO DAILY [facility] Last Admin: 02/25/17 09:38 Dose: 10 mg Atenolol (Tenormin -) 25 mg PO DAILY [facility] Last Admin: 02/25/17 09:38 Dose: 25 mg Citalopram Hydrobromide (Celexa -) 20 mg PO DAILY [facility] Last Admin: 02/25/17 09:38 Dose: 20 mg Clonidine (Catapres -) 0.2 mg PO BID [facility] Last Admin: 02/25/17 22:31 Dose: 0.2 mg Furosemide (Lasix Injection -) 40 mg IVPUSH DAILY [facility] Last Admin: 02/25/17 09:39 Dose: 40 mg Insulin Detemir (Levemir Vial) 24 units SQ DAILY [facility] Last Admin: 02/25/17 10:20 Dose: 24 unit Lisinopril (Prinivil) 2.5 mg PO DAILY [facility] Last Admin: 02/25/17 09:38 Dose: 2.5 mg Metformin HCl (Glucophage -) 500 mg PO BIDAC [facility] Last Admin: 02/26/17 06:28 Dose: 500 mg Tamsulosin HCl (Flomax -) 0.4 mg PO DAILY@0830 [facility] Last Admin: 02/25/17 09:38 Dose: 0.4 mg - Objective Vital Signs: Vital Signs Temperature 97.6 F 02/26/17 05:58 Pulse Rate 66 02/26/17 05:58 Respiratory Rate 17 02/26/17 05:58 Blood Pressure 147/77 02/26/17 05:58 O2 Sat by Pulse Oximetry (%) 96 02/25/17 21:00 Constitutional: Yes: No Distress Eyes: Yes: Conjunctiva Clear Cardiovascular: Yes: Pulse Irregular Respiratory: Yes: CTA Bilaterally Gastrointestinal: Yes: Soft Edema: Yes Edema: LLE: 1+, RLE: 1+ Neurological: Yes: Alert, Oriented Labs: CBC, BMP 02/25/17 05:20 02/25/17 05:20 INR, PTT INR 1.36 (0.82-1.09) H 02/25/17 05:20 Laboratory Tests 02/25/17 02/25/17 05:20 05:20 WBC 5.6 Hgb 13.0 Hct 39.0 Plt Count 158 Sodium 142 Potassium 4.3 BUN 48 H Creatinine 1.2 - ....Imaging EKG: Image Reviewed Assessment/Plan Assessment/Plan 72 year old man with a history of afib reportedly taken off AC recently after a fall with liver laceration and bleeding as well as hematuria; reported h/o CHF ( probably diastolic), obesity, admitted with c/o progressively worsening sob, LE edema, orthopnea. SOB-uncertain etiology, likely multifactorial: chronic diastolic CHF, PHTN. -echo w/ normal LV fxn, PHTN. -Pulm evaluation in progress -Would continue with IV Lasix for one more day, then transition to PO Afib-HR controlled: -cont home atenolol -as per report taken off AC recently at [facility] after a fall with liver laceration and hemorrhage, clarify the details and AC plan that was established there -If cannot be fully anticoagulated, would start ASA 81mg daily. HTN- still above goal, increase Lisinopril to 5mg daily.
[2017-02-26] MEDS ORDERED: PT OWN MED DRAWER 7, Y5N ONE (10:19)
[2017-02-26] MEDS: INSULIN DETEMIR 100 UNITS/ML MDV SQ SCH (10:29)
[2017-02-26] MEDS: ASPIRIN 81 MG CHEWABLE TABLETS PO SCH (10:29)
[2017-02-26] MEDS: CITALOPRAM HYDROBROMIDE 20 MG TABLET (FP) PO SCH (10:29)
[2017-02-26] MEDS: FUROSEMIDE 40 MG TABLET (FP) PO SCH (10:29)
--- NOTE | 2017-02-26 10:29 | PN ---
Progress Note, Physician History of Present Illness: pulmonary alert,feeling better,less dyspneic,-cp. - Current Medication List Current Medications: Active Medications Albuterol/Ipratropium (Duoneb -) 1 amp NEB Q6H PRN PRN Reason: SHORT OF BREATH/WHEEZING Amlodipine Besylate (Norvasc -) 10 mg PO DAILY [facility] Last Admin: 02/25/17 09:38 Dose: 10 mg Aspirin (Asa -) 81 mg PO DAILY [facility] Atenolol (Tenormin -) 25 mg PO DAILY [facility] Last Admin: 02/25/17 09:38 Dose: 25 mg Citalopram Hydrobromide (Celexa -) 20 mg PO DAILY [facility] Last Admin: 02/25/17 09:38 Dose: 20 mg Clonidine (Catapres -) 0.2 mg PO BID [facility] Last Admin: 02/25/17 22:31 Dose: 0.2 mg Furosemide (Lasix -) 40 mg PO DAILY [facility] Insulin Detemir (Levemir Vial) 24 units SQ DAILY [facility] Last Admin: 02/25/17 10:20 Dose: 24 unit Lisinopril (Prinivil) 5 mg PO DAILY [facility] Metformin HCl (Glucophage -) 500 mg PO BIDAC [facility] Last Admin: 02/26/17 06:28 Dose: 500 mg Tamsulosin HCl (Flomax -) 0.4 mg PO DAILY@0830 [facility] Last Admin: 02/25/17 09:38 Dose: 0.4 mg - Objective Vital Signs: Vital Signs Temperature 97.6 F 02/26/17 05:58 Pulse Rate 66 02/26/17 05:58 Respiratory Rate 17 02/26/17 05:58 Blood Pressure 147/77 02/26/17 05:58 O2 Sat by Pulse Oximetry (%) 96 02/25/17 21:00 Constitutional: Yes: Calm, Obese Eyes: Yes: WNL HENT: Yes: WNL Neck: Yes: WNL Cardiovascular: Yes: Pulse Irregular, S1, S2 Respiratory: Yes: CTA Bilaterally Gastrointestinal: Yes: Normal Bowel Sounds, Soft Extremities: Yes: WNL Edema: Yes Labs: CBC, BMP 02/25/17 05:20 02/25/17 05:20 INR, PTT INR 1.36 (0.82-1.09) H 02/25/17 05:20 Problem List - Problems (1) Congestive heart failure Code(s): I50.9 - HEART FAILURE, UNSPECIFIED Qualifiers: Congestive heart failure type: unspecified congestive heart failure type Congestive heart failure chronicity: acute on chronic Qualified Code(s): I50.9 - Heart failure, unspecified (2) Afib Code(s): I48.91 - UNSPECIFIED ATRIAL FIBRILLATION (3) Dyspnea Code(s): R06.00 - DYSPNEA, UNSPECIFIED (4) Morbid (severe) obesity due to excess calories Code(s): E66.01 - MORBID (SEVERE) OBESITY DUE TO EXCESS CALORIES Assessment/Plan IMP DYSPNEA IMPROVING LIKELY CHF AFIB MORBID OBESITY LIKELY OSAS LIVER LACERATION PLAN CONTINUE IV LASIX O2 INHALED BRONCHODILATORS PRN DAILY WTS SLEEP STUDIES OUTPATIENT ASA DR SIMON Problem List - Problems (1) Congestive heart failure Code(s): I50.9 - HEART FAILURE, UNSPECIFIED Qualifiers: Congestive heart failure type: unspecified congestive heart failure type Congestive heart failure chronicity: acute on chronic Qualified Code(s): I50.9 - Heart failure, unspecified (2) Afib Code(s): I48.91 - UNSPECIFIED ATRIAL FIBRILLATION (3) Dyspnea Code(s): R06.00 - DYSPNEA, UNSPECIFIED (4) Morbid (severe) obesity due to excess calories Code(s): E66.01 - MORBID (SEVERE) OBESITY DUE TO EXCESS CALORIES
[2017-02-26] MEDS: LISINOPRIL 5 MG TABLET (FP) PO SCH (10:30)
[2017-02-26] MEDS: ATENOLOL 25 MG TABLET (FP) PO SCH (10:30)
[2017-02-26] MEDS: amLODIPine BESYLATE 10 MG TABLET (FP) PO SCH (10:30)
[2017-02-26] MEDS: cloNIDine HCL 0.1 MG TABLET PO SCH ×2 (10:37→22:21)
--- NOTE | 2017-02-26 23:46 | PN ---
Progress Note, Physician - Current Medication List Current Medications: Active Medications Albuterol/Ipratropium (Duoneb -) 1 amp NEB Q6H PRN PRN Reason: SHORT OF BREATH/WHEEZING Amlodipine Besylate (Norvasc -) 10 mg PO DAILY [facility] Last Admin: 02/26/17 10:30 Dose: 10 mg Aspirin (Asa -) 81 mg PO DAILY [facility] Last Admin: 02/26/17 10:29 Dose: 81 mg Atenolol (Tenormin -) 25 mg PO DAILY [facility] Last Admin: 02/26/17 10:30 Dose: 25 mg Citalopram Hydrobromide (Celexa -) 20 mg PO DAILY [facility] Last Admin: 02/26/17 10:29 Dose: 20 mg Clonidine (Catapres -) 0.2 mg PO BID [facility] Last Admin: 02/26/17 22:21 Dose: 0.2 mg Furosemide (Lasix -) 40 mg PO DAILY [facility] Last Admin: 02/26/17 10:29 Dose: 40 mg Insulin Detemir (Levemir Vial) 24 units SQ DAILY [facility] Last Admin: 02/26/17 10:29 Dose: 24 unit Lisinopril (Prinivil) 5 mg PO DAILY [facility] Last Admin: 02/26/17 10:30 Dose: 5 mg Metformin HCl (Glucophage -) 500 mg PO BIDAC [facility] Last Admin: 02/26/17 18:01 Dose: 500 mg Tamsulosin HCl (Flomax -) 0.4 mg PO DAILY@0830 [facility] Last Admin: 02/26/17 08:40 Dose: 0.4 mg - Objective Vital Signs: Vital Signs Temperature 97.4 F L 02/26/17 17:57 Pulse Rate 75 02/26/17 17:57 Respiratory Rate 20 02/26/17 17:57 Blood Pressure 136/88 02/26/17 17:57 O2 Sat by Pulse Oximetry (%) 99 02/26/17 09:00 Labs: CBC, BMP 02/25/17 05:20 02/25/17 05:20 INR, PTT INR 1.36 (0.82-1.09) H 02/25/17 05:20
[2017-02-27] MEDS: metFORMIN HCL 500 MG TABLET (FP) PO SCH ×2 (07:00→17:32)
--- NOTE | 2017-02-27 09:13 | PN ---
Progress Note, Physician History of Present Illness: seen and examined today in nad. no overnight events. no new complaints. states he is feeling better. - Current Medication List Current Medications: Active Medications Albuterol/Ipratropium (Duoneb -) 1 amp NEB Q6H PRN PRN Reason: SHORT OF BREATH/WHEEZING Amlodipine Besylate (Norvasc -) 10 mg PO DAILY [facility] Last Admin: 02/26/17 10:30 Dose: 10 mg Aspirin (Asa -) 81 mg PO DAILY [facility] Last Admin: 02/26/17 10:29 Dose: 81 mg Atenolol (Tenormin -) 25 mg PO DAILY [facility] Last Admin: 02/26/17 10:30 Dose: 25 mg Citalopram Hydrobromide (Celexa -) 20 mg PO DAILY [facility] Last Admin: 02/26/17 10:29 Dose: 20 mg Clonidine (Catapres -) 0.2 mg PO BID [facility] Last Admin: 02/26/17 22:21 Dose: 0.2 mg Furosemide (Lasix -) 40 mg PO DAILY [facility] Last Admin: 02/26/17 10:29 Dose: 40 mg Insulin Detemir (Levemir Vial) 24 units SQ DAILY [facility] Last Admin: 02/26/17 10:29 Dose: 24 unit Lisinopril (Prinivil) 5 mg PO DAILY [facility] Last Admin: 02/26/17 10:30 Dose: 5 mg Metformin HCl (Glucophage -) 500 mg PO BIDAC [facility] Last Admin: 02/27/17 07:00 Dose: 500 mg Tamsulosin HCl (Flomax -) 0.4 mg PO DAILY@0830 [facility] Last Admin: 02/26/17 08:40 Dose: 0.4 mg - Objective Vital Signs: Vital Signs Temperature 98.1 F 02/27/17 06:00 Pulse Rate 74 02/27/17 06:00 Respiratory Rate 18 02/27/17 06:00 Blood Pressure 138/109 02/27/17 06:00 O2 Sat by Pulse Oximetry (%) 98 02/26/17 22:00 Constitutional: Yes: No Distress, Calm, Obese Eyes: Yes: Conjunctiva Clear, EOM Intact, PERRL HENT: Yes: Atraumatic, Normocephalic Neck: Yes: Supple, Trachea Midline Cardiovascular: Yes: Pulse Irregular, S1, S2. No: Regular Rate and Rhythm, Bradycardia, Tachycardia, Bruit, JVD, Gallop, Murmur, Rub, S3, S4, Varicosities Respiratory: Yes: Regular, Diminished, On Nasal O2. No: Rales, Rhonchi, SOB, Wheezes Gastrointestinal: Yes: Normal Bowel Sounds, Soft, Abdomen, Obese. No: Distention, Tenderness Edema: Yes Edema: LLE: 2+, RLE: 2+ Peripheral Pulses WNL: Yes Peripheral Pulses: Left Doralis Pedis: 2+, Right Dorsalis Pedis: 2+ Neurological: Yes: Alert, Oriented Psychiatric: Yes: Alert, Oriented Labs: CBC, BMP 02/25/17 05:20 02/25/17 05:20 INR, PTT INR 1.36 (0.82-1.09) H 02/25/17 05:20 - ....Imaging Chest X-ray: Report Reviewed, Image Reviewed EKG: Report Reviewed, Image Reviewed Other: Report Reviewed, Image Reviewed (tele-AFib, HR controlled, no sig pauses) Assessment/Plan 72 year old man with a history of afib reportedly taken off AC recently after a fall with liver laceration and bleeding as well as hematuria; reported h/o CHF ( probably diastolic), obesity, admitted with c/o progressively worsening sob, LE edema, orthopnea. SOB-likely multifactorial: acute on chronic diastolic CHF, PHTN, R sided CHF leading to ascites and LE edema, hypoalbuminemia -echo showed normal LV systolic function, severe TR, mod PHTN. -pt was transitioned to po Lasix yesterday -monitor I/Os and daily weights -LE edema and abd distention persists despite lungs being clear suggests R sided CHF with possible chronic venous insufficiency -Pulm evaluating -would consider GI evaluation for ascites, possible cirrhosis Afib-HR controlled: -cont home atenolol -as per report taken off AC recently at [facility] after a fall with liver laceration and hemorrhage -please clarify the details of that admission and the plan for full AC that was established at [facility] and with his outside doctors -cont ASA 81mg daily for now HTN- above goal, improved yesterday afternoon but again above goal overnight and this am -Lisinopril was increased to 5mg daily yesterday -re-evaluate BP after this am meds
[2017-02-27 10:08] LABS: SERUM IRON 51 ug/dL (38-169); TOTAL IRON BINDING CAPACITY 191 ug/dL (250-450); UIBC 140 ug/dL (111-343)
[2017-02-27] MEDS ORDERED: PT OWN MED DRAWER 7, Y5N ONE (10:17)
[2017-02-27] MEDS: TAMSULOSIN HCL 0.4 MG CAP.ER.24H (FP) PO SCH (10:19)
[2017-02-27] MEDS: ASPIRIN 81 MG CHEWABLE TABLETS PO SCH (10:19)
[2017-02-27] MEDS: cloNIDine HCL 0.1 MG TABLET PO SCH ×2 (10:19→22:38)
[2017-02-27] MEDS: FUROSEMIDE 40 MG TABLET (FP) PO SCH (10:20)
[2017-02-27] MEDS: CITALOPRAM HYDROBROMIDE 20 MG TABLET (FP) PO SCH (10:20)
[2017-02-27] MEDS: LISINOPRIL 5 MG TABLET (FP) PO SCH (10:20)
[2017-02-27] MEDS: INSULIN DETEMIR 100 UNITS/ML MDV SQ SCH (10:20)
[2017-02-27] MEDS: ATENOLOL 25 MG TABLET (FP) PO SCH (10:21)
[2017-02-27] MEDS: amLODIPine BESYLATE 10 MG TABLET (FP) PO SCH (10:25)
--- NOTE | 2017-02-27 17:17 | PN ---
Progress Note (short form) - Note Progress Note: Breathing is improving. Less SOB. No CP. Intake & Output 02/24/17 02/25/17 02/26/17 02/27/17 23:59 23:59 23:59 23:59 Intake Total 100 300 630 Output Total 500 Balance -400 300 630 Weight 268 lb 258 lb 9.6 oz 260 lb 1.6 oz Last Vital Signs Temp Pulse Resp BP Pulse Ox 98.0 F 80 16 129/84 98 02/27/17 14:00 02/27/17 14:00 02/27/17 14:00 02/27/17 14:00 02/27/17 09:00 Active Medications Albuterol/Ipratropium (Duoneb -) 1 amp NEB Q6H PRN PRN Reason: SHORT OF BREATH/WHEEZING Amlodipine Besylate (Norvasc -) 10 mg PO DAILY [facility] Last Admin: 02/27/17 10:25 Dose: 10 mg Aspirin (Asa -) 81 mg PO DAILY [facility] Last Admin: 02/27/17 10:19 Dose: 81 mg Atenolol (Tenormin -) 25 mg PO DAILY [facility] Last Admin: 02/27/17 10:21 Dose: 25 mg Citalopram Hydrobromide (Celexa -) 20 mg PO DAILY [facility] Last Admin: 02/27/17 10:20 Dose: 20 mg Clonidine (Catapres -) 0.2 mg PO BID [facility] Last Admin: 02/27/17 10:19 Dose: 0.2 mg Furosemide (Lasix -) 40 mg PO DAILY [facility] Last Admin: 02/27/17 10:20 Dose: 40 mg Insulin Detemir (Levemir Vial) 24 units SQ DAILY [facility] Last Admin: 02/27/17 10:20 Dose: 24 unit Lisinopril (Prinivil) 5 mg PO DAILY [facility] Last Admin: 02/27/17 10:20 Dose: 5 mg [facility] Admin: 02/27/17 07:00 Dose: 500 mg Tamsulosin HCl (Flomax -) 0.4 mg PO DAILY@0830 [facility] Last Admin: 02/27/17 10:19 Dose: 0.4 mg Constitutional: Yes: NAD Eyes: Yes: WNL HENT: Yes: WNL Neck: Yes: WNL Cardiovascular: Yes: Pulse Irregular, S1, S2 Respiratory: Yes: Diminished at the bases Gastrointestinal: Yes: Normal Bowel Sounds, Soft Extremities: Yes: WNL Edema: Yes Labs: Laboratory Results - last 24 hr 02/25/17 02/26/17 02/27/17 05:20 17:03 07:00 POC Glucometer 239.75740 107.63814 Iron 51 TIBC 191 L Iron Saturation 27 02/27/17 11:32 POC Glucometer 233.10154 Iron TIBC Iron Saturation Problem List - Problems (1) Congestive heart failure Code(s): I50.9 - HEART FAILURE, UNSPECIFIED Qualifiers: Congestive heart failure type: unspecified congestive heart failure type Congestive heart failure chronicity: acute on chronic Qualified Code(s): I50.9 - Heart failure, unspecified (2) Afib Code(s): I48.91 - UNSPECIFIED ATRIAL FIBRILLATION (3) Dyspnea Code(s): R06.00 - DYSPNEA, UNSPECIFIED (4) Morbid (severe) obesity due to excess calories Code(s): E66.01 - MORBID (SEVERE) OBESITY DUE TO EXCESS CALORIES Assessment/Plan IMP DYSPNEA IMPROVING ASCITES -> (?) CIRRHOSIS AFIB MORBID OBESITY LIKELY OSAS LIVER LACERATION PLAN LASIX O2 INHALED BRONCHODILATORS PRN DAILY WTS SLEEP STUDIES OUTPATIENT MAY BENEFIT FROM GI EVALUATION DR YUEN
--- NOTE | 2017-02-27 23:53 | PN ---
Progress Note, Physician History of Present Illness: No new complaints - Current Medication List Current Medications: Active Medications Albuterol/Ipratropium (Duoneb -) 1 amp NEB Q6H PRN PRN Reason: SHORT OF BREATH/WHEEZING Amlodipine Besylate (Norvasc -) 10 mg PO DAILY [facility] Last Admin: 02/27/17 10:25 Dose: 10 mg Aspirin (Asa -) 81 mg PO DAILY [facility] Last Admin: 02/27/17 10:19 Dose: 81 mg Atenolol (Tenormin -) 25 mg PO DAILY [facility] Last Admin: 02/27/17 10:21 Dose: 25 mg Citalopram Hydrobromide (Celexa -) 20 mg PO DAILY [facility] Last Admin: 02/27/17 10:20 Dose: 20 mg Clonidine (Catapres -) 0.2 mg PO BID [facility] Last Admin: 02/27/17 22:38 Dose: 0.2 mg Furosemide (Lasix -) 40 mg PO DAILY [facility] Last Admin: 02/27/17 10:20 Dose: 40 mg Insulin Detemir (Levemir Vial) 24 units SQ DAILY [facility] Last Admin: 02/27/17 10:20 Dose: 24 unit Lisinopril (Prinivil) 5 mg PO DAILY [facility] Last Admin: 02/27/17 10:20 Dose: 5 mg Metformin HCl (Glucophage -) 500 mg PO BIDAC [facility] Last Admin: 02/27/17 17:32 Dose: 500 mg Tamsulosin HCl (Flomax -) 0.4 mg PO DAILY@0830 [facility] Last Admin: 02/27/17 10:19 Dose: 0.4 mg - Objective Vital Signs: Vital Signs Temperature 98.1 F 02/27/17 21:25 Pulse Rate 81 02/27/17 21:25 Respiratory Rate 18 02/27/17 21:25 Blood Pressure 142/79 02/27/17 21:25 O2 Sat by Pulse Oximetry (%) 95 02/27/17 21:25 Constitutional: Yes: Well Nourished Eyes: Yes: WNL HENT: Yes: WNL Neck: Yes: Supple Cardiovascular: Yes: Pulse Irregular Respiratory: Yes: WNL, Regular, CTA Bilaterally Gastrointestinal: Yes: WNL, Normal Bowel Sounds, Soft Labs: CBC, BMP 02/25/17 05:20 02/25/17 05:20 INR, PTT INR 1.36 (0.82-1.09) H 02/25/17 05:20 Problem List - Problems (1) Acute on chronic diastolic (congestive) heart failure Assessment/Plan: Pt now on po lasix DC planning for am Code(s): I50.33 - ACUTE ON CHRONIC DIASTOLIC (CONGESTIVE) HEART FAILURE (2) Ascites Assessment/Plan: Spoke to pt at length about need for w/u Pt to see GI as outpt w/ Dr Gonzalez Code(s): R18.8 - OTHER ASCITES (3) Afib Assessment/Plan: Heart rate controlled Not on AC due to liver laceration Code(s): I48.91 - UNSPECIFIED ATRIAL FIBRILLATION (4) HTN (hypertension) Assessment/Plan: BP fluctuating COnt atenolol/prinivil/norvasc/catepress Code(s): I10 - ESSENTIAL (PRIMARY) HYPERTENSION (5) Diabetes Assessment/Plan: Cont levemir Code(s): E11.9 - TYPE 2 DIABETES MELLITUS WITHOUT COMPLICATIONS (6) BPH (benign prostatic hyperplasia) Assessment/Plan: Cont flomax Code(s): N40.0 - BENIGN PROSTATIC HYPERPLASIA WITHOUT LOWER URINRY TRACT SYMP
[2017-02-28 06:09] LABS: HEMATOCRIT 41.1 % (37.5-51.0)
[2017-02-28] MEDS: metFORMIN HCL 500 MG TABLET (FP) PO SCH ×2 (06:45→17:15)
[2017-02-28 07:03] LABS: ALBUMIN 2.9 g/dl (3.4-5.0); ANION GAP 6 (8-16); CALCIUM 8.8 mg/dL (8.5-10.1); CO2 33 mmol/L (21-32); GLUCOSE,RANDOM 104 mg/dL (74-106)
[2017-02-28 07:06] LABS: ALK PHOS 63 U/L (45-117); BILIRUBIN,TOTAL 1.2 mg/dL (0.2-1.0); CREATININE 1.2 mg/dL (0.7-1.3); SGOT/AST 17 U/L (15-37); SGPT/ALT 21 U/L (12-78); TOT PROT 6.3 g/dl (6.4-8.2)
[2017-02-28] MEDS: ASPIRIN 81 MG CHEWABLE TABLETS PO SCH (09:24)
[2017-02-28] MEDS: CITALOPRAM HYDROBROMIDE 20 MG TABLET (FP) PO SCH (09:24)
[2017-02-28] MEDS: TAMSULOSIN HCL 0.4 MG CAP.ER.24H (FP) PO SCH (09:24)
[2017-02-28] MEDS: cloNIDine HCL 0.1 MG TABLET PO SCH ×2 (09:25→21:00)
[2017-02-28] MEDS: amLODIPine BESYLATE 10 MG TABLET (FP) PO SCH (09:26)
[2017-02-28] MEDS: INSULIN DETEMIR 100 UNITS/ML MDV SQ SCH (09:49)
[2017-02-28] MEDS: FUROSEMIDE 40 MG TABLET (FP) PO SCH (09:50)
[2017-02-28] MEDS: ATENOLOL 25 MG TABLET (FP) PO SCH (09:50)
[2017-02-28] MEDS: LISINOPRIL 5 MG TABLET (FP) PO SCH (09:50)
--- NOTE | 2017-02-28 10:22 | PN ---
Progress Note, Physician Chief Complaint: fees better, no SOB - Current Medication List Current Medications: Active Medications Albuterol/Ipratropium (Duoneb -) 1 amp NEB Q6H PRN PRN Reason: SHORT OF BREATH/WHEEZING Amlodipine Besylate (Norvasc -) 10 mg PO DAILY [facility] Last Admin: 02/28/17 09:26 Dose: 10 mg Aspirin (Asa -) 81 mg PO DAILY [facility] Last Admin: 02/28/17 09:24 Dose: 81 mg Atenolol (Tenormin -) 25 mg PO DAILY [facility] Last Admin: 02/28/17 09:50 Dose: 25 mg Citalopram Hydrobromide (Celexa -) 20 mg PO DAILY [facility] Last Admin: 02/28/17 09:24 Dose: 20 mg Clonidine (Catapres -) 0.2 mg PO BID [facility] Last Admin: 02/28/17 09:25 Dose: 0.2 mg Furosemide (Lasix -) 40 mg PO DAILY [facility] Last Admin: 02/28/17 09:50 Dose: 40 mg Insulin Detemir (Levemir Vial) 24 units SQ DAILY [facility] Last Admin: 02/28/17 09:49 Dose: 24 unit Lisinopril (Prinivil) 5 mg PO DAILY [facility] Last Admin: 02/28/17 09:50 Dose: 5 mg Metformin HCl (Glucophage -) 500 mg PO BIDAC [facility] Last Admin: 02/28/17 06:45 Dose: 500 mg Tamsulosin HCl (Flomax -) 0.4 mg PO DAILY@0830 [facility] Last Admin: 02/28/17 09:24 Dose: 0.4 mg - Objective Vital Signs: Vital Signs Temperature 98 F 02/28/17 02:00 Pulse Rate 70 02/28/17 09:29 Respiratory Rate 19 02/28/17 09:29 Blood Pressure 139/95 02/28/17 09:29 O2 Sat by Pulse Oximetry (%) 95 02/27/17 21:25 Constitutional: Yes: No Distress Eyes: Yes: Conjunctiva Clear Neck: Yes: Supple Cardiovascular: Yes: Regular Rate and Rhythm Respiratory: Yes: CTA Bilaterally Gastrointestinal: Yes: Soft (non-tender) Edema: Yes Edema: LLE: Trace, RLE: Trace Neurological: Yes: Alert, Oriented Labs: CBC, BMP 02/25/17 05:20 02/28/17 05:15 INR, PTT INR 1.36 (0.82-1.09) H 02/25/17 05:20 - ....Imaging EKG: Image Reviewed (tele: AF, 3 beats NSVT) Assessment/Plan Assessment/Plan 72 year old man with a history of afib reportedly taken off AC recently after a fall with liver laceration and bleeding as well as hematuria; reported h/o CHF, obesity, admitted with c/o progressively worsening sob, LE edema, orthopnea. SOB-likely multifactorial: acute on chronic diastolic CHF, PHTN, R sided CHF leading to ascites and LE edema, hypoalbuminemia -echo showed normal LV systolic function, severe TR, mod PHTN. -Continue PO Lasix -monitor I/Os and daily weights -LE edema and abd distention persists despite lungs being clear suggests R sided CHF with possible chronic venous insufficiency -would consider GI evaluation for ascites, possible cirrhosis Afib-HR controlled: -cont home atenolol -as per report taken off AC recently at [facility] after a fall with liver laceration and hemorrhage -please clarify the details of that admission and the plan for full AC that was established at [facility] and with his outside doctors -cont ASA 81mg daily for now HTN- trend last 12 hours shows overall improvement, continue current Rx -will need close outpatient f/u to titrate Lisinopril dose
--- NOTE | 2017-02-28 14:33 | PN ---
Progress Note (short form) - Note Progress Note: Breathing is improving. Less SOB. No CP. No acute events overnight. Intake & Output 02/25/17 02/26/17 02/27/17 02/28/17 23:59 23:59 23:59 23:59 Intake Total 100 300 790 Output Total 500 Balance -400 300 790 Weight 258 lb 9.6 oz 260 lb 1.6 oz 261 lb Last Vital Signs Temp Pulse Resp BP Pulse Ox 98.5 F 78 20 117/78 95 02/28/17 12:00 02/28/17 12:00 02/28/17 12:00 02/28/17 12:00 02/27/17 21:25 Active Medications Albuterol/Ipratropium (Duoneb -) 1 amp NEB Q6H PRN PRN Reason: SHORT OF BREATH/WHEEZING Amlodipine Besylate (Norvasc -) 10 mg PO DAILY [facility] Last Admin: 02/28/17 09:26 Dose: 10 mg Aspirin (Asa -) 81 mg PO DAILY [facility] Last Admin: 02/28/17 09:24 Dose: 81 mg Atenolol (Tenormin -) 25 mg PO DAILY [facility] Last Admin: 02/28/17 09:50 Dose: 25 mg Citalopram Hydrobromide (Celexa -) 20 mg PO DAILY [facility] Last Admin: 02/28/17 09:24 Dose: 20 mg Clonidine (Catapres -) 0.2 mg PO BID [facility] Last Admin: 02/28/17 09:25 Dose: 0.2 mg Furosemide (Lasix -) 40 mg PO DAILY [facility] Last Admin: 02/28/17 09:50 Dose: 40 mg Insulin Detemir (Levemir Vial) 24 units SQ DAILY [facility] Last Admin: 02/28/17 09:49 Dose: 24 unit Lisinopril (Prinivil) 5 mg PO DAILY [facility] Last Admin: 02/28/17 09:50 Dose: 5 mg [facility] Admin: 02/28/17 06:45 Dose: 500 mg Tamsulosin HCl (Flomax -) 0.4 mg PO DAILY@0830 [facility] Last Admin: 02/28/17 09:24 Dose: 0.4 mg Constitutional: Yes: NAD Eyes: Yes: WNL HENT: Yes: WNL Neck: Yes: WNL Cardiovascular: Yes: Pulse Irregular, S1, S2 Respiratory: Yes: Diminished at the bases Gastrointestinal: Yes: Normal Bowel Sounds, Soft Extremities: Yes: WNL Edema: Yes Labs: Laboratory Results - last 24 hr 02/25/17 02/27/17 02/27/17 05:20 17:31 21:39 Hct 41.1 Sodium Potassium Chloride Carbon Dioxide Anion Gap BUN Creatinine Creat Clearance w eGFR POC Glucometer 204.54539 229.88543 Random Glucose Calcium Iron 51 TIBC 191 L Iron Saturation 27 Total Bilirubin AST ALT Alkaline Phosphatase Total Protein Albumin Folate >1509 Folate Hemolysate >620.0 02/28/17 02/28/17 05:15 05:41 Hct Sodium 141 Potassium 4.2 Chloride 102 Carbon Dioxide 33 H Anion Gap 6 L BUN 43 H Creatinine 1.2 Creat Clearance w eGFR 59.18 POC Glucometer 82.87079 Random Glucose 104 D Calcium 8.8 Iron TIBC Iron Saturation Total Bilirubin 1.2 H AST 17 ALT 21 D Alkaline Phosphatase 63 Total Protein 6.3 L Albumin 2.9 L Folate Folate Hemolysate Problem List - Problems (1) Congestive heart failure Code(s): I50.9 - HEART FAILURE, UNSPECIFIED Qualifiers: Congestive heart failure type: unspecified congestive heart failure type Congestive heart failure chronicity: acute on chronic Qualified Code(s): I50.9 - Heart failure, unspecified (2) Afib Code(s): I48.91 - UNSPECIFIED ATRIAL FIBRILLATION (3) Dyspnea Code(s): R06.00 - DYSPNEA, UNSPECIFIED (4) Morbid (severe) obesity due to excess calories Code(s): E66.01 - MORBID (SEVERE) OBESITY DUE TO EXCESS CALORIES Assessment/Plan IMP DYSPNEA IMPROVING ASCITES -> (?) CIRRHOSIS AFIB MORBID OBESITY LIKELY OSAS LIVER LACERATION PLAN LASIX O2 INHALED BRONCHODILATORS PRN DAILY WTS SLEEP STUDIES OUTPATIENT GI EVALUATION WILL NEED TO CLARIFY AC DR YUEN
--- NOTE | 2017-02-28 21:20 | CON.GI ---
Consult Consult Specialty:: GI Referred by:: Dr Wellington Reason for Consultation:: Ascites - History of Present Illness Chief Complaint: Shortness of breath History of Present Illness: 72 M with h/o0 AF, s/p liver laceration "a few months ago" with internal bleeding at which time AC was stopped. He has had increasing POSADAS and LE edema. He is now admitted with progressive dyspnea and edema despite recently increased dose of diuretic. He states he was never a drinker. He has a h/o DM and is now using insulin. He has severe tricuspid stenosis and R heart failure. - History Source History Provided By: Patient, Medical Record Limitations to Obtaining History: No Limitations - Past Medical History Cardio/Vascular: Yes: AFIB, CHF, HTN, Hyperlipdemia - Alcohol/Substance Use Hx Alcohol Use: Yes (occassional beer) - Smoking History Smoking history: Never smoked - Social History ADL: Independent History of Recent Travel: No Home Medications - Allergies Allergies/Adverse Reactions: Allergies Allergy/AdvReac Type Severity Reaction Status Date / Time codeine Allergy Verified 02/23/17 12:22 iodine Allergy Verified 02/23/17 12:22 - Home Medications Home Medications: Ambulatory Orders Amlodipine Besylate 10 mg PO DAILY 02/23/17 Atenolol [Tenormin -] 25 mg PO DAILY 02/23/17 Citalopram Hydrobromide [Celexa -] 20 mg PO DAILY 02/23/17 Clonidine HCl 0.2 mg PO BID 02/23/17 Furosemide [Lasix] 40 mg PO DAILY 02/23/17 Insulin Glargine,Hum.rec.anlog [Lantus Solostar PEN -] 24 units SQ DAILY Ipratropium/Albuterol Sulfate [Iprat-Albut 0.5-3(2.5) mg/3 ml] 3 ml IH Q6H PRN 02/23/17 Metformin HCl 500 mg PO BID 02/23/17 Tamsulosin HCl [Flomax] 0.4 mg PO DAILY 02/23/17 Aspirin [ASA -] 81 mg PO DAILY #30 tab.chew 02/28/17 Furosemide [Lasix -] 40 mg PO DAILY #30 tablet 02/28/17 Lisinopril [Prinivil] 5 mg PO DAILY #30 tablet 02/28/17 Physical Exam-GI Vital Signs: Vital Signs Temperature 98.1 F 02/28/17 17:05 Pulse Rate 67 02/28/17 17:05 Respiratory Rate 20 02/28/17 17:05 Blood Pressure 135/75 02/28/17 17:05 O2 Sat by Pulse Oximetry (%) 95 02/28/17 09:00 Constitutional: Yes: Well Nourished, Mild Distress HENT: Yes: Normocephalic Neck: Yes: Supple Cardiovascular: Yes: Regular Rate and Rhythm Respiratory: Yes: CTA Bilaterally Gastrointestinal Inspection: Yes: Distention ((marked)) ...Auscultate: Yes: Normoactive Bowel Sounds ...Palpate: Yes: Firm/Rigid. No: Tenderness ...Percussion: Yes: Dullness Neurological: Yes: Alert Labs: CBC, BMP 02/25/17 05:20 02/28/17 05:15 INR, PTT INR 1.36 (0.82-1.09) H 02/25/17 05:20 Hepatic Panel Total Bilirubin 1.2 mg/dL (0.2-1.0) H 02/28/17 05:15 AST 17 U/L (15-37) 02/28/17 05:15 ALT 21 U/L (12-78) D 02/28/17 05:15 Alkaline Phosphatase 63 U/L (45-117) 02/28/17 05:15 Albumin 2.9 g/dl (3.4-5.0) L 02/28/17 05:15 Abnormal Lab Results 02/25/17 02/28/17 05:20 05:15 Carbon Dioxide 33 H Anion Gap 6 L BUN 43 H TIBC 191 L Total Bilirubin 1.2 H Total Protein 6.3 L Albumin 2.9 L Imaging - Results Ultrasound: Report Reviewed (Moderate ascites) Assessment/Plan Patient with moderate ascites. When I tried to ascertain when he developed increased abdominal girth, he states he always had a "big belly" Possibilities include R heart failure with subsequent hepatic congestion and ascites (likely) ESLD with ascites (less likely) Liver with relatively normal morphology on U/S and normal plt count with no history of ETOH use make ESLD unlikely. He does, however, have DMII and could have steatohepatitis and subsequent liver disease. Management of R heart failure would be most appropriate re the liver issue. Will refer to Dr Mayorga for poss paracentesis. Central obesity is a longstanding problem for this patient
[2017-02-28] MEDS ORDERED: ACETAMINOPHEN 325 MG TABLET (FP) ONE (21:33)
[2017-02-28] MEDS ORDERED: ACETAMINOPHEN 325 MG TABLET (FP) PO PRN (21:38)
--- NOTE | 2017-02-28 23:17 | PN ---
Progress Note, Physician - Current Medication List Current Medications: Active Medications Acetaminophen (Tylenol -) 650 mg PO Q6H PRN PRN Reason: FEVER OR PAIN Last Admin: 02/28/17 21:35 Dose: 650 mg Albuterol/Ipratropium (Duoneb -) 1 amp NEB Q6H PRN PRN Reason: SHORT OF BREATH/WHEEZING Amlodipine Besylate (Norvasc -) 10 mg PO DAILY [facility] Last Admin: 02/28/17 09:26 Dose: 10 mg Aspirin (Asa -) 81 mg PO DAILY [facility] Last Admin: 02/28/17 09:24 Dose: 81 mg Atenolol (Tenormin -) 25 mg PO DAILY [facility] Last Admin: 02/28/17 09:50 Dose: 25 mg Citalopram Hydrobromide (Celexa -) 20 mg PO DAILY [facility] Last Admin: 02/28/17 09:24 Dose: 20 mg Clonidine (Catapres -) 0.2 mg PO BID [facility] Last Admin: 02/28/17 21:00 Dose: 0.2 mg Furosemide (Lasix -) 40 mg PO DAILY [facility] Last Admin: 02/28/17 09:50 Dose: 40 mg Insulin Detemir (Levemir Vial) 24 units SQ DAILY [facility] Last Admin: 02/28/17 09:49 Dose: 24 unit Lisinopril (Prinivil) 5 mg PO DAILY [facility] Last Admin: 02/28/17 09:50 Dose: 5 mg Metformin HCl (Glucophage -) 500 mg PO BIDAC [facility] Last Admin: 02/28/17 17:15 Dose: 500 mg Tamsulosin HCl (Flomax -) 0.4 mg PO DAILY@0830 [facility] Last Admin: 02/28/17 09:24 Dose: 0.4 mg - Objective Vital Signs: Vital Signs Temperature 98.1 F 02/28/17 17:05 Pulse Rate 67 02/28/17 17:05 Respiratory Rate 20 02/28/17 17:05 Blood Pressure 135/75 02/28/17 17:05 O2 Sat by Pulse Oximetry (%) 95 02/28/17 09:00 Labs: CBC, BMP 02/25/17 05:20 02/28/17 05:15 INR, PTT INR 1.36 (0.82-1.09) H 02/25/17 05:20 Problem List - Problems (1) Acute on chronic diastolic (congestive) heart failure Code(s): I50.33 - ACUTE ON CHRONIC DIASTOLIC (CONGESTIVE) HEART FAILURE (2) Ascites Code(s): R18.8 - OTHER ASCITES (3) Afib Code(s): I48.91 - UNSPECIFIED ATRIAL FIBRILLATION (4) HTN (hypertension) Code(s): I10 - ESSENTIAL (PRIMARY) HYPERTENSION (5) Diabetes Code(s): E11.9 - TYPE 2 DIABETES MELLITUS WITHOUT COMPLICATIONS (6) BPH (benign prostatic hyperplasia) Code(s): N40.0 - BENIGN PROSTATIC HYPERPLASIA WITHOUT LOWER URINRY TRACT SYMP
[2017-03-01 00:08] LABS: A/G RATIO 1.1 (0.7-1.7); ALPHA-1-GLOBULIN 0.3 g/dL (0.0-0.4); BETA GLOBULIN 0.7 g/dL (0.7-1.3); GAMMA GLOBULIN 1.5 g/dL (0.4-1.8); M-SPIKE Not Observed g/dL (Not Observed)
[2017-03-01] MEDS: metFORMIN HCL 500 MG TABLET (FP) PO SCH ×2 (06:22→17:02)
--- NOTE | 2017-03-01 09:27 | PN ---
Progress Note, Physician Chief Complaint: no complaints feels well GI input noted - Current Medication List Current Medications: Active Medications Acetaminophen (Tylenol -) 650 mg PO Q6H PRN PRN Reason: FEVER OR PAIN Last Admin: 02/28/17 21:35 Dose: 650 mg Amlodipine Besylate (Norvasc -) 10 mg PO DAILY [facility] Last Admin: 02/28/17 09:26 Dose: 10 mg Aspirin (Asa -) 81 mg PO DAILY [facility] Last Admin: 02/28/17 09:24 Dose: 81 mg Atenolol (Tenormin -) 25 mg PO DAILY [facility] Last Admin: 02/28/17 09:50 Dose: 25 mg Citalopram Hydrobromide (Celexa -) 20 mg PO DAILY [facility] Last Admin: 02/28/17 09:24 Dose: 20 mg Clonidine (Catapres -) 0.2 mg PO BID [facility] Last Admin: 02/28/17 21:00 Dose: 0.2 mg Furosemide (Lasix -) 40 mg PO DAILY [facility] Last Admin: 02/28/17 09:50 Dose: 40 mg Insulin Detemir (Levemir Vial) 24 units SQ DAILY [facility] Last Admin: 02/28/17 09:49 Dose: 24 unit Lisinopril (Prinivil) 5 mg PO DAILY [facility] Last Admin: 02/28/17 09:50 Dose: 5 mg Metformin HCl (Glucophage -) 500 mg PO BIDAC [facility] Last Admin: 03/01/17 06:22 Dose: Not Given Tamsulosin HCl (Flomax -) 0.4 mg PO DAILY@0830 [facility] Last Admin: 02/28/17 09:24 Dose: 0.4 mg - Objective Vital Signs: Vital Signs Temperature 97.9 F 03/01/17 06:00 Pulse Rate 88 03/01/17 06:00 Respiratory Rate 22 03/01/17 06:00 Blood Pressure 137/95 03/01/17 06:00 O2 Sat by Pulse Oximetry (%) 95 02/28/17 22:00 Constitutional: Yes: No Distress Eyes: Yes: Conjunctiva Clear Cardiovascular: Yes: Pulse Irregular Respiratory: Yes: CTA Bilaterally Gastrointestinal: Yes: Soft, Abdomen, Obese Edema: No Neurological: Yes: Alert, Oriented Labs: CBC, BMP 02/25/17 05:20 02/28/17 05:15 INR, PTT INR 1.36 (0.82-1.09) H 02/25/17 05:20 - ....Imaging EKG: Image Reviewed (AF, rate controlled. No pauses > 3 seconds) Assessment/Plan Assessment/Plan 72 year old man with a history of afib reportedly taken off AC recently after a fall with liver laceration and bleeding as well as hematuria; reported h/o CHF, obesity, admitted with c/o progressively worsening sob, LE edema, orthopnea. SOB-likely multifactorial: acute on chronic diastolic CHF, PHTN, R sided CHF leading to ascites and LE edema, hypoalbuminemia -echo showed normal LV systolic function, severe TR, mod PHTN. 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 Dwyer HTN- -will need close outpatient f/u to titrate Lisinopril dose -May benefit from additional low evening dose (2.5mg) as early AM BP is still above goal
[2017-03-01] MEDS: cloNIDine HCL 0.1 MG TABLET PO SCH ×2 (10:05→21:57)
[2017-03-01] MEDS: TAMSULOSIN HCL 0.4 MG CAP.ER.24H (FP) PO SCH (10:05)
[2017-03-01] MEDS: CITALOPRAM HYDROBROMIDE 20 MG TABLET (FP) PO SCH (10:05)
[2017-03-01] MEDS: LISINOPRIL 5 MG TABLET (FP) PO SCH (10:06)
[2017-03-01] MEDS: amLODIPine BESYLATE 10 MG TABLET (FP) PO SCH (10:06)
[2017-03-01] MEDS ORDERED: INSULIN (NOVOLOG) ASPART 100 UNITS/ML 10ML VIAL ONE (11:47)
[2017-03-01] MEDS: ASPIRIN 81 MG CHEWABLE TABLETS PO SCH (12:30)
[2017-03-01] MEDS: FUROSEMIDE 40 MG TABLET (FP) PO SCH (12:37)
[2017-03-01] MEDS: INSULIN DETEMIR 100 UNITS/ML MDV SQ SCH (12:37)
[2017-03-01] MEDS: ATENOLOL 25 MG TABLET (FP) PO SCH (12:39)
--- NOTE | 2017-03-01 14:17 | PN ---
Progress Note (short form) - Note Progress Note: PULMONARY s/p abdominal paracentesis with removal of 1L bloody fluid. States breathing has improved after paracentesis. Last Vital Signs Temp Pulse Resp BP Pulse Ox 98.6 F 74 22 139/104 96 03/01/17 12:24 03/01/17 12:24 03/01/17 12:24 03/01/17 12:24 03/01/17 09:00 Intake & Output 02/26/17 02/27/17 02/28/17 03/01/17 23:59 23:59 23:59 23:59 Intake Total 300 790 620 Balance 300 790 620 Weight 260 lb 1.6 oz 261 lb Gen: NAD lying supine Heart: RRR Lung: decreased breath sounds at the bases Abd: softly distended, nontender Ext: + edema CBC, BMP 02/25/17 05:20 02/28/17 05:15 Active Medications Acetaminophen (Tylenol -) 650 mg PO Q6H PRN PRN Reason: FEVER OR PAIN Last Admin: 02/28/17 21:35 Dose: 650 mg Amlodipine Besylate (Norvasc -) 10 mg PO DAILY [facility] Last Admin: 03/01/17 10:06 Dose: 10 mg Aspirin (Asa -) 81 mg PO DAILY [facility] Last Admin: 02/28/17 09:24 Dose: 81 mg Atenolol (Tenormin -) 25 mg PO DAILY [facility] Last Admin: 03/01/17 12:39 Dose: 25 mg Citalopram Hydrobromide (Celexa -) 20 mg PO DAILY [facility] Last Admin: 03/01/17 10:05 Dose: 20 mg Clonidine (Catapres -) 0.2 mg PO BID [facility] Last Admin: 03/01/17 10:05 Dose: 0.2 mg Furosemide (Lasix -) 40 mg PO DAILY [facility] Last Admin: 03/01/17 12:37 Dose: 40 mg Insulin Detemir (Levemir Vial) 24 units SQ DAILY [facility] Last Admin: 03/01/17 12:37 Dose: 24 unit Lisinopril (Prinivil) 5 mg PO DAILY [facility] Last Admin: 03/01/17 10:06 Dose: 5 mg [facility] Last Admin: 03/01/17 06:22 Dose: Not Given Tamsulosin HCl (Flomax -) 0.4 mg PO DAILY@0830 [facility] Last Admin: 03/01/17 10:05 Dose: 0.4 mg A/P Acute on Chronic LV Diastolic Heart Failure Pulmonary HTN Ascites s/p paracentesis with bloody drainage- ?recent liver laceration post trauma vs malignant Atrial Fibrillation Morbid Obesity - f/u ascites studies and cytology - may need CT A/P to assess for carcinomatosis - continue lasix - monitor urine output, creatinine - O2 as needed - rate controlled - anticoagulation per cardiology
[2017-03-01 21:08] LABS: PERITONEAL FLUID LYMPHOCYTE 80 %; PERITONEAL FLUID MACROPHAGE 11 %; PERITONEAL FLUID MONOCYTE 5 %; PERITONEAL FLUID NEUTROPHIL 4 %
--- NOTE | 2017-03-01 23:25 | PN ---
Progress Note, Physician - Current Medication List Current Medications: Active Medications Acetaminophen (Tylenol -) 650 mg PO Q6H PRN PRN Reason: FEVER OR PAIN Last Admin: 02/28/17 21:35 Dose: 650 mg Amlodipine Besylate (Norvasc -) 10 mg PO DAILY [facility] Last Admin: 03/01/17 10:06 Dose: 10 mg Aspirin (Asa -) 81 mg PO DAILY [facility] Last Admin: 03/01/17 12:30 Dose: Not Given Atenolol (Tenormin -) 25 mg PO DAILY [facility] Last Admin: 03/01/17 12:39 Dose: 25 mg Citalopram Hydrobromide (Celexa -) 20 mg PO DAILY [facility] Last Admin: 03/01/17 10:05 Dose: 20 mg Clonidine (Catapres -) 0.2 mg PO BID [facility] Last Admin: 03/01/17 21:57 Dose: 0.2 mg Furosemide (Lasix -) 40 mg PO DAILY [facility] Last Admin: 03/01/17 12:37 Dose: 40 mg Insulin Detemir (Levemir Vial) 24 units SQ DAILY [facility] Last Admin: 03/01/17 12:37 Dose: 24 unit Lisinopril (Prinivil) 5 mg PO DAILY [facility] Last Admin: 03/01/17 10:06 Dose: 5 mg Metformin HCl (Glucophage -) 500 mg PO BIDAC [facility] Last Admin: 03/01/17 17:02 Dose: 500 mg Tamsulosin HCl (Flomax -) 0.4 mg PO DAILY@0830 [facility] Last Admin: 03/01/17 10:05 Dose: 0.4 mg - Objective Vital Signs: Vital Signs Temperature 96.4 F L 03/01/17 21:00 Pulse Rate 85 03/01/17 21:00 Respiratory Rate 22 03/01/17 21:00 Blood Pressure 156/98 03/01/17 21:00 O2 Sat by Pulse Oximetry (%) 100 03/01/17 21:00 Labs: CBC, BMP 02/25/17 05:20 02/28/17 05:15 INR, PTT INR 1.36 (0.82-1.09) H 02/25/17 05:20 Problem List - Problems (1) Acute on chronic diastolic (congestive) heart failure Code(s): I50.33 - ACUTE ON CHRONIC DIASTOLIC (CONGESTIVE) HEART FAILURE (2) Ascites Code(s): R18.8 - OTHER ASCITES (3) Afib Code(s): I48.91 - UNSPECIFIED ATRIAL FIBRILLATION (4) HTN (hypertension) Code(s): I10 - ESSENTIAL (PRIMARY) HYPERTENSION (5) Diabetes Code(s): E11.9 - TYPE 2 DIABETES MELLITUS WITHOUT COMPLICATIONS (6) BPH (benign prostatic hyperplasia) Code(s): N40.0 - BENIGN PROSTATIC HYPERPLASIA WITHOUT LOWER URINRY TRACT SYMP
[2017-03-02] MEDS: metFORMIN HCL 500 MG TABLET (FP) PO SCH ×2 (06:30→17:22)
[2017-03-02] MEDS: TAMSULOSIN HCL 0.4 MG CAP.ER.24H (FP) PO SCH (08:56)
--- NOTE | 2017-03-02 09:36 | PN ---
Progress Note, Physician Chief Complaint: comfortable TELE: AF, rate controlled. - Current Medication List Current Medications: Active Medications Acetaminophen (Tylenol -) 650 mg PO Q6H PRN PRN Reason: FEVER OR PAIN Last Admin: 02/28/17 21:35 Dose: 650 mg Amlodipine Besylate (Norvasc -) 10 mg PO DAILY [facility] Last Admin: 03/01/17 10:06 Dose: 10 mg Aspirin (Asa -) 81 mg PO DAILY [facility] Last Admin: 03/01/17 12:30 Dose: Not Given Atenolol (Tenormin -) 25 mg PO DAILY [facility] Last Admin: 03/01/17 12:39 Dose: 25 mg Citalopram Hydrobromide (Celexa -) 20 mg PO DAILY [facility] Last Admin: 03/01/17 10:05 Dose: 20 mg Clonidine (Catapres -) 0.2 mg PO BID [facility] Last Admin: 03/01/17 21:57 Dose: 0.2 mg Furosemide (Lasix -) 40 mg PO DAILY [facility] Last Admin: 03/01/17 12:37 Dose: 40 mg Insulin Detemir (Levemir Vial) 24 units SQ DAILY [facility] Last Admin: 03/01/17 12:37 Dose: 24 unit Lisinopril (Prinivil) 5 mg PO DAILY [facility] Last Admin: 03/01/17 10:06 Dose: 5 mg Metformin HCl (Glucophage -) 500 mg PO BIDAC [facility] Last Admin: 03/02/17 06:30 Dose: 500 mg Tamsulosin HCl (Flomax -) 0.4 mg PO DAILY@0830 [facility] Last Admin: 03/02/17 08:56 Dose: 0.4 mg - Objective Vital Signs: Vital Signs Temperature 977 F H 03/02/17 07:01 Pulse Rate 78 03/02/17 07:01 Respiratory Rate 20 03/02/17 07:01 Blood Pressure 111/95 03/02/17 07:01 O2 Sat by Pulse Oximetry (%) 100 03/01/17 21:00 Constitutional: Yes: No Distress Cardiovascular: Yes: Pulse Irregular Respiratory: Yes: CTA Bilaterally Gastrointestinal: Yes: Soft Edema: Yes Edema: LLE: 1+, RLE: 1+ Neurological: Yes: Alert Labs: CBC, BMP 02/25/17 05:20 02/28/17 05:15 INR, PTT INR 1.36 (0.82-1.09) H 02/25/17 05:20 Laboratory Tests 03/01/17 10:50 Peritoneal WBC 864 Peritoneal RBC 1,700,866 Periton Neutrophils 4 Periton Lymphocytes 80 Peritoneal Monocytes 5 Periton Macrophages 11 Peritoneal Tot Protein 3 Peritoneal Albumin 2 Peritoneal LDH 199 Peritoneal Glucose 222 Peritoneal Amylase 17 Peritoneal Cholesterol 50 Peritoneal Triglycerid 26 - ....Imaging EKG: Image Reviewed Assessment/Plan Assessment/Plan 72 year old man with a history of afib reportedly taken off AC recently after a fall with liver laceration and bleeding as well as hematuria; reported h/o CHF, obesity, admitted with c/o progressively worsening sob, LE edema, orthopnea. SOB-likely multifactorial: acute on chronic diastolic CHF, PHTN, R sided CHF leading to ascites and LE edema, hypoalbuminemia -echo showed normal LV systolic function, severe TR, mod PHTN. -Continue PO Lasix -appreciate GI input, s/p paracentesis yesterday (bloody fluid noted) Afib-HR controlled: -cont home atenolol -as per report taken off AC recently at [facility] after a fall with liver laceration and hemorrhage -please clarify the details of that admission and the plan for full AC that was established at [facility] and with his outside doctors -cont ASA 81mg daily for now -Would defer longterm plan for AC to his primary wood buffer, Dr. Dwyer and his PMD. -Long discussion with son last night about his questions regarding full AC>> I explained our caution and hesitancy in resuming full AC in light of the information and history we have of liver lac, hematuria and falls. Explained that any thoughts of resuming full AC should be after full review of his history with his PMD Son agreed to provide us with telephone # for primary MD (Dr. Guillen?) and any prior records. -Check CBC today
[2017-03-02] MEDS: cloNIDine HCL 0.1 MG TABLET PO SCH ×2 (09:42→21:38)
[2017-03-02] MEDS: FUROSEMIDE 40 MG TABLET (FP) PO SCH (09:42)
[2017-03-02] MEDS: ASPIRIN 81 MG CHEWABLE TABLETS PO SCH (09:42)
[2017-03-02] MEDS: CITALOPRAM HYDROBROMIDE 20 MG TABLET (FP) PO SCH (09:42)
[2017-03-02] MEDS: INSULIN DETEMIR 100 UNITS/ML MDV SQ SCH (09:43)
[2017-03-02] MEDS: amLODIPine BESYLATE 10 MG TABLET (FP) PO SCH (09:43)
[2017-03-02] MEDS: ATENOLOL 25 MG TABLET (FP) PO SCH (09:43)
[2017-03-02] MEDS: LISINOPRIL 5 MG TABLET (FP) PO SCH (09:43)
[2017-03-02 10:27] LABS: BASOPHIL 0.3 % (0-2.0); EOSINOPHIL 2.4 % (0-4.5); MCH 31.6 pg (25.7-33.7); MCHC 33.4 g/dl (32.0-35.9); MEAN CELL VOLUME 94.6 fl (80-96); MEAN PLT VOLUME 7.8 fl (7.5-11.1); PLATELET COUNT 141 K/MM3 (134-434); RDW 16.3 % (11.9-15.9); WHITE BLOOD COUNT 6.1 K/mm3 (4.0-10.0)
--- NOTE | 2017-03-02 14:53 | PATH ---
Cytology Non-Gynecological Report Patient Name: NELL ROA [facility]. Rec. #: [id number] /Age/Gender: 1945 (Age: 72) / M Account: [id number] Location: EMERGENCY ROOM Taken: 03/01/2017 Received: 03/01/2017 Reported: 03/02/2017 Physicians: Bhavna Oliveira M.D. Specimen(s) Received A: RLQ ABDOMINAL FLUID IN 50% ALCOHOL B: RLQ ABDOMINAL FLUID FRESH Clinical History Ascites Final Diagnosis A,B. ABDOMINAL FLUID, RIGHT LOWER QUADRANT, PARACENTESIS: SATISFACTORY FOR EVALUATION. NO MALIGNANT CELLS IDENTIFIED. REACTIVE MESOTHELIAL CELLS, HISTOCYTES AND LYMPHOCYTES. Electronically Signed Lopez Wise M.D. Gross Description A. Received is a 50 cc of yellow fluid in 50% alcohol. One cytofunnel slide and one cell block are made. B. Received is 2000 cc of yellow fluid fresh. One cytofunnel slide and one cell block are made.
--- NOTE | 2017-03-02 16:05 | PN ---
Progress Note (short form) - Note Progress Note: Patient seen and examined feels ok no complaints Last Vital Signs Temp Pulse Resp BP Pulse Ox 98.8 F 86 19 120/75 100 03/02/17 13:32 03/02/17 13:32 03/02/17 13:32 03/02/17 13:32 03/02/17 09:00 Cor: RSR, No murmurs, No gallops Lungs: Clear to P&A Abd: Soft, Normal bowel sounds, No organomegaly Ext:No significant edema Abnormal Lab Results 03/02/17 10:00 RDW 16.3 H Home Medication List Medication Instructions Recorded Confirmed Type Amlodipine Besylate 10 mg PO DAILY 02/23/17 02/23/17 History Atenolol [Tenormin -] 25 mg PO DAILY 02/23/17 02/23/17 History Citalopram Hydrobromide [Celexa -] 20 mg PO DAILY 02/23/17 02/23/17 History Clonidine HCl 0.2 mg PO BID 02/23/17 02/23/17 History Furosemide [Lasix] 40 mg PO DAILY 02/23/17 02/23/17 History Insulin Glargine,Hum.rec.anlog 24 units SQ DAILY 02/23/17 02/23/17 History [Lantus Solostar PEN -] Ipratropium/Albuterol Sulfate 3 ml IH Q6H PRN 02/23/17 02/23/17 History [Iprat-Albut 0.5-3(2.5) mg/3 ml] Metformin HCl 500 mg PO BID 02/23/17 02/23/17 History Tamsulosin HCl [Flomax] 0.4 mg PO DAILY 02/23/17 02/23/17 History Active Medications Generic Name Dose Route Start Last Admin Trade Name Freq PRN Reason Stop Dose Admin Acetaminophen 650 mg 02/28/17 21:38 02/28/17 21:35 Tylenol - PO 650 mg Q6H PRN Administration FEVER OR PAIN Amlodipine Besylate 10 mg 02/24/17 10:00 03/02/17 09:43 Norvasc - PO 10 mg DAILY [facility] Administration Aspirin 81 mg 02/26/17 10:00 03/02/17 09:42 Asa - PO 81 mg DAILY [facility] Administration Atenolol 25 mg 02/24/17 10:00 03/02/17 09:43 Tenormin - PO 25 mg DAILY [facility] Administration Citalopram Hydrobromide 20 mg 02/24/17 10:00 03/02/17 09:42 Celexa - PO 20 mg DAILY [facility] Administration Clonidine 0.2 mg 02/24/17 10:00 03/02/17 09:42 Catapres - PO 0.2 mg BID [facility] Administration Furosemide 40 mg 02/26/17 10:00 03/02/17 09:42 Lasix - PO 40 mg DAILY [facility] Administration Insulin Detemir 24 units 02/24/17 10:00 03/02/17 09:43 Levemir Vial SQ 24 unit DAILY [facility] Administration Lisinopril 5 mg 02/26/17 10:00 03/02/17 09:43 Prinivil PO 5 mg DAILY [facility] Administration Metformin HCl 500 mg 02/24/17 07:00 03/02/17 06:30 Glucophage - PO 500 mg BIDAC [facility] Administration Tamsulosin HCl 0.4 mg 02/24/17 08:30 03/02/17 08:56 Flomax - PO 0.4 mg DAILY@0830 [facility] Administration A/P 72 y/o patient presents to the ED complaining of a two week history of worsening peripheral edema, shortness of breath, POSADAS and orthopnea. History of CHF, known a fib. Recently admitted to [facility] for liver laceration-- anticoagulation was stopped at that time. Patient and family state that patient was feeling better while admitted, but has SOB has been getting gradually worse. On exam, patient is tachypneic and becomes short of breath with just moving in the stretcher. Seen by outpatient medical manager, who has doubled his PO lasix with no response. Most likely acute CHF exacerbation. PAtient does not recall how long he has been on coumadin. He says 6months and ca ,me off 2 weeks ago. He states that he did not fall but says that he was sitting at the counterand stooped forward over the counter. CHF/afib s/p paracentesis cytology--mesothelial cells a/c per cardiology h/o falls? h/o liver laceration
--- NOTE | 2017-03-02 16:20 | PN ---
Progress Note (short form) - Note Progress Note: Breathing is overall improved. Denies SOB. No CP. Intake & Output 02/27/17 02/28/17 03/01/17 03/02/17 23:59 23:59 23:59 23:59 Intake Total 790 620 580 120 Balance 790 620 580 120 Weight 261 lb 266 lb 5 oz Last Vital Signs Temp Pulse Resp BP Pulse Ox 98.8 F 86 19 120/75 100 03/02/17 13:32 03/02/17 13:32 03/02/17 13:32 03/02/17 13:32 03/02/17 09:00 Active Medications Acetaminophen (Tylenol -) 650 mg PO Q6H PRN PRN Reason: FEVER OR PAIN Last Admin: 02/28/17 21:35 Dose: 650 mg Amlodipine Besylate (Norvasc -) 10 mg PO DAILY [facility] Last Admin: 03/02/17 09:43 Dose: 10 mg Aspirin (Asa -) 81 mg PO DAILY [facility] Last Admin: 03/02/17 09:42 Dose: 81 mg Atenolol (Tenormin -) 25 mg PO DAILY [facility] Last Admin: 03/02/17 09:43 Dose: 25 mg Citalopram Hydrobromide (Celexa -) 20 mg PO DAILY [facility] Last Admin: 03/02/17 09:42 Dose: 20 mg Clonidine (Catapres -) 0.2 mg PO BID [facility] Last Admin: 03/02/17 09:42 Dose: 0.2 mg Furosemide (Lasix -) 40 mg PO DAILY [facility] Last Admin: 03/02/17 09:42 Dose: 40 mg Insulin Detemir (Levemir Vial) 24 units SQ DAILY [facility] Last Admin: 03/02/17 09:43 Dose: 24 unit Lisinopril (Prinivil) 5 mg PO DAILY [facility] Last Admin: 03/02/17 09:43 Dose: 5 mg [facility] -) [facility] Last Admin: 03/02/17 06:30 Dose: 500 mg Tamsulosin HCl (Flomax -) 0.4 mg PO DAILY@0830 [facility] Last Admin: 03/02/17 08:56 Dose: 0.4 mg Constitutional: Yes: NAD Eyes: Yes: WNL HENT: Yes: WNL Neck: Yes: WNL Cardiovascular: Yes: Pulse Irregular, S1, S2 Respiratory: Yes: Diminished at the bases Gastrointestinal: Yes: Normal Bowel Sounds, Soft Extremities: Yes: WNL Edema: Yes Labs: Laboratory Results - last 24 hr 03/01/17 03/01/17 03/02/17 10:50 12:09 05:28 WBC RBC Hgb Hct MCV MCHC RDW Plt Count MPV Neutrophils % Lymphocytes % Monocytes % Eosinophils % Basophils % POC Glucometer [id number] 143.47834 Peritoneal WBC 864 Peritoneal RBC 1,700,866 Periton Neutrophils 4 Periton Lymphocytes 80 Peritoneal Monocytes 5 Periton Macrophages 11 Peritoneal Tot Protein 3 Peritoneal Albumin 2 Peritoneal LDH 199 Peritoneal Glucose 222 Peritoneal Amylase 17 Peritoneal Cholesterol 50 Peritoneal Triglycerid 26 03/02/17 10:00 WBC 6.1 RBC 4.13 Hgb 13.1 Hct 39.1 MCV 94.6 MCHC 33.4 RDW 16.3 H Plt Count 141 MPV 7.8 Neutrophils % 70.0 Lymphocytes % 17.2 Monocytes % 10.1 Eosinophils % 2.4 Basophils % 0.3 POC Glucometer Peritoneal WBC Peritoneal RBC Periton Neutrophils Periton Lymphocytes Peritoneal Monocytes Periton Macrophages Peritoneal Tot Protein Peritoneal Albumin Peritoneal LDH Peritoneal Glucose Peritoneal Amylase Peritoneal Cholesterol Peritoneal Triglycerid Problem List - Problems (1) Congestive heart failure Code(s): I50.9 - HEART FAILURE, UNSPECIFIED Qualifiers: Congestive heart failure type: unspecified congestive heart failure type Congestive heart failure chronicity: acute on chronic Qualified Code(s): I50.9 - Heart failure, unspecified (2) Afib Code(s): I48.91 - UNSPECIFIED ATRIAL FIBRILLATION (3) Dyspnea Code(s): R06.00 - DYSPNEA, UNSPECIFIED (4) Morbid (severe) obesity due to excess calories Code(s): E66.01 - MORBID (SEVERE) OBESITY DUE TO EXCESS CALORIES Assessment/Plan IMP DYSPNEA IMPROVING ASCITES -> (?) CIRRHOSIS AFIB MORBID OBESITY LIKELY [facility]AS LIVER LACERATION PLAN LASIX O2 INHALED BRONCHODILATORS PRN DAILY WTS SLEEP STUDIES OUTPATIENT GI EVALUATION WILL NEED TO CLARIFY AC DR YUEN
--- NOTE | 2017-03-03 00:30 | PN ---
Progress Note, Physician History of Present Illness: No new complaints Pt seen and examined 03/02/17 however note is being entered now - Current Medication List Current Medications: Active Medications Acetaminophen (Tylenol -) 650 mg PO Q6H PRN PRN Reason: FEVER OR PAIN Last Admin: 02/28/17 21:35 Dose: 650 mg Amlodipine Besylate (Norvasc -) 10 mg PO DAILY [facility] Last Admin: 03/02/17 09:43 Dose: 10 mg Aspirin (Asa -) 81 mg PO DAILY [facility] Last Admin: 03/02/17 09:42 Dose: 81 mg Atenolol (Tenormin -) 25 mg PO DAILY [facility] Last Admin: 03/02/17 09:43 Dose: 25 mg Citalopram Hydrobromide (Celexa -) 20 mg PO DAILY [facility] Last Admin: 03/02/17 09:42 Dose: 20 mg Clonidine (Catapres -) 0.2 mg PO BID [facility] Last Admin: 03/02/17 21:38 Dose: 0.2 mg Furosemide (Lasix -) 40 mg PO DAILY [facility] Last Admin: 03/02/17 09:42 Dose: 40 mg Insulin Detemir (Levemir Vial) 24 units SQ DAILY [facility] Last Admin: 03/02/17 09:43 Dose: 24 unit Lisinopril (Prinivil) 5 mg PO DAILY [facility] Last Admin: 03/02/17 09:43 Dose: 5 mg Metformin HCl (Glucophage -) 500 mg PO BIDAC [facility] Last Admin: 03/02/17 17:22 Dose: 500 mg Tamsulosin HCl (Flomax -) 0.4 mg PO DAILY@0830 [facility] Last Admin: 03/02/17 08:56 Dose: 0.4 mg - Objective Vital Signs: Vital Signs Temperature 97.6 F 03/02/17 20:48 Pulse Rate 76 03/02/17 20:48 Respiratory Rate 20 03/02/17 20:48 Blood Pressure 142/98 03/02/17 20:48 O2 Sat by Pulse Oximetry (%) 95 03/02/17 20:48 Labs: CBC, BMP 03/02/17 10:00 02/28/17 05:15 INR, PTT INR 1.36 (0.82-1.09) H 02/25/17 05:20 Problem List - Problems (1) Acute on chronic diastolic (congestive) heart failure Code(s): I50.33 - ACUTE ON CHRONIC DIASTOLIC (CONGESTIVE) HEART FAILURE (2) Ascites Code(s): R18.8 - OTHER ASCITES (3) Afib Code(s): I48.91 - UNSPECIFIED ATRIAL FIBRILLATION (4) HTN (hypertension) Code(s): I10 - ESSENTIAL (PRIMARY) HYPERTENSION (5) Diabetes Code(s): E11.9 - TYPE 2 DIABETES MELLITUS WITHOUT COMPLICATIONS (6) BPH (benign prostatic hyperplasia) Code(s): N40.0 - BENIGN PROSTATIC HYPERPLASIA WITHOUT LOWER URINRY TRACT SYMP
[2017-03-03] MEDS: metFORMIN HCL 500 MG TABLET (FP) PO SCH ×2 (06:36→17:33)
--- NOTE | 2017-03-03 08:57 | PN ---
Progress Note, Physician Chief Complaint: comfortable No chest pain or SOB History of Present Illness: TELE: AF, rate controlled. Few pauses in 2 second range. None > 3 seconds. - Current Medication List Current Medications: Active Medications Acetaminophen (Tylenol -) 650 mg PO Q6H PRN PRN Reason: FEVER OR PAIN Last Admin: 02/28/17 21:35 Dose: 650 mg Amlodipine Besylate (Norvasc -) 10 mg PO DAILY [facility] Last Admin: 03/02/17 09:43 Dose: 10 mg Aspirin (Asa -) 81 mg PO DAILY [facility] Last Admin: 03/02/17 09:42 Dose: 81 mg Atenolol (Tenormin -) 25 mg PO DAILY [facility] Last Admin: 03/02/17 09:43 Dose: 25 mg Citalopram Hydrobromide (Celexa -) 20 mg PO DAILY [facility] Last Admin: 03/02/17 09:42 Dose: 20 mg Clonidine (Catapres -) 0.2 mg PO BID [facility] Last Admin: 03/02/17 21:38 Dose: 0.2 mg Furosemide (Lasix -) 40 mg PO DAILY [facility] Last Admin: 03/02/17 09:42 Dose: 40 mg Insulin Detemir (Levemir Vial) 24 units SQ DAILY [facility] Last Admin: 03/02/17 09:43 Dose: 24 unit Lisinopril (Prinivil) 5 mg PO DAILY [facility] Last Admin: 03/02/17 09:43 Dose: 5 mg Metformin HCl (Glucophage -) 500 mg PO BIDAC [facility] Last Admin: 03/03/17 06:36 Dose: 500 mg Tamsulosin HCl (Flomax -) 0.4 mg PO DAILY@0830 [facility] Last Admin: 03/02/17 08:56 Dose: 0.4 mg - Objective Vital Signs: Vital Signs Temperature 97.6 F 03/03/17 06:00 Pulse Rate 63 03/03/17 06:00 Respiratory Rate 20 03/03/17 06:00 Blood Pressure 144/96 03/03/17 06:00 O2 Sat by Pulse Oximetry (%) 95 03/02/17 20:48 Constitutional: Yes: No Distress Cardiovascular: Yes: Pulse Irregular Respiratory: Yes: CTA Bilaterally Gastrointestinal: Yes: Abdomen, Obese Edema: Yes Edema: LLE: 1+, RLE: 1+ Neurological: Yes: Alert, Oriented Labs: CBC, BMP 06/22/17 10:00 02/28/17 05:15 INR, PTT INR 1.36 (0.82-1.09) H 02/25/17 05:20 Laboratory Tests 03/02/17 10:00 WBC 6.1 Hct 39.1 Plt Count 141 - ....Imaging EKG: Image Reviewed Assessment/Plan Assessment/Plan 72 year old man with a history of afib reportedly taken off AC recently after a fall with liver laceration and bleeding as well as hematuria; reported h/o CHF, obesity, admitted with c/o progressively worsening sob, LE edema, orthopnea. SOB-likely multifactorial: acute on chronic diastolic CHF, PHTN, R sided CHF leading to ascites and LE edema, hypoalbuminemia -echo showed normal LV systolic function, severe TR, mod PHTN. -Continue PO Lasix -appreciate GI input, s/p paracentesis Afib-HR controlled: -cont home atenolol -as per report taken off AC recently at [facility] after a fall with liver laceration and hemorrhage -please clarify the details of that admission and the plan for full AC that was established at [facility] and with his outside doctors -cont ASA 81mg daily for now -Would defer director long term care plan for AC to his primary labor operator, Dr. Dwyer and his PMD. -Long discussion with son last night about his questions regarding full AC>> I explained our caution and hesitancy in resuming full AC in light of the information and history we have of liver lac, hematuria and falls. Explained that any thoughts of resuming full AC should be after full review of his history with his PMD Son agreed to provide us with telephone # for primary MD (Dr. Guillen?) and any prior records; did not receive call back from son yesterday -Will continue to hold full AC as risks seem >> potential benefits in this case -H/H stable.
[2017-03-03] MEDS ORDERED: PT OWN MED DRAWER 7, Y5N ONE (09:30)
[2017-03-03] MEDS: LISINOPRIL 5 MG TABLET (FP) PO SCH (09:34)
[2017-03-03] MEDS: cloNIDine HCL 0.1 MG TABLET PO SCH ×2 (09:34→21:30)
[2017-03-03] MEDS: amLODIPine BESYLATE 10 MG TABLET (FP) PO SCH (09:34)
[2017-03-03] MEDS: CITALOPRAM HYDROBROMIDE 20 MG TABLET (FP) PO SCH (09:34)
[2017-03-03] MEDS: TAMSULOSIN HCL 0.4 MG CAP.ER.24H (FP) PO SCH (09:34)
[2017-03-03] MEDS: ASPIRIN 81 MG CHEWABLE TABLETS PO SCH (09:34)
[2017-03-03] MEDS: FUROSEMIDE 40 MG TABLET (FP) PO SCH (09:34)
[2017-03-03] MEDS: INSULIN DETEMIR 100 UNITS/ML MDV SQ SCH (09:35)
[2017-03-03] MEDS: ATENOLOL 25 MG TABLET (FP) PO SCH (09:37)
--- NOTE | 2017-03-03 14:41 | PN ---
Progress Note (short form) - Note Progress Note: Breathing feels ok today. Denies SOB. No CP. Intake & Output 02/28/17 03/01/17 03/02/17 03/03/17 23:59 23:59 23:59 23:59 Intake Total 620 580 120 120 Balance 620 580 120 120 Weight 261 lb 266 lb 5 oz Last Vital Signs Temp Pulse Resp BP Pulse Ox 98 F 82 20 111/91 95 03/03/17 13:37 03/03/17 13:37 03/03/17 13:37 03/03/17 13:37 03/03/17 09:54 Active Medications Acetaminophen (Tylenol -) 650 mg PO Q6H PRN PRN Reason: FEVER OR PAIN Last Admin: 02/28/17 21:35 Dose: 650 mg Amlodipine Besylate (Norvasc -) 10 mg PO DAILY [facility] Last Admin: 03/03/17 09:34 Dose: 10 mg Aspirin (Asa -) 81 mg PO DAILY [facility] Last Admin: 03/03/17 09:34 Dose: 81 mg Atenolol (Tenormin -) 25 mg PO DAILY [facility] Last Admin: 03/03/17 09:37 Dose: 25 mg Citalopram Hydrobromide (Celexa -) 20 mg PO DAILY [facility] Last Admin: 03/03/17 09:34 Dose: 20 mg Clonidine (Catapres -) 0.2 mg PO BID [facility] Last Admin: 03/03/17 09:34 Dose: 0.2 mg Furosemide (Lasix -) 40 mg PO DAILY [facility] Last Admin: 03/03/17 09:34 Dose: 40 mg Insulin Detemir (Levemir Vial) 24 units SQ DAILY [facility] Last Admin: 03/03/17 09:35 Dose: 24 unit Lisinopril (Prinivil) 5 mg PO DAILY [facility] Last Admin: 03/03/17 09:34 Dose: 5 mg [facility] Last Admin: 03/03/17 06:36 Dose: 500 mg Tamsulosin HCl (Flomax -) 0.4 mg PO DAILY@0830 [facility] Last Admin: 03/03/17 09:34 Dose: 0.4 mg Constitutional: Yes: NAD Eyes: Yes: WNL HENT: Yes: WNL Neck: Yes: WNL Cardiovascular: Yes: Pulse Irregular, S1, S2 Respiratory: Yes: Diminished at the bases Gastrointestinal: Yes: Normal Bowel Sounds, Soft Extremities: Yes: WNL Edema: Yes Labs: Laboratory Results - last 24 hr 03/02/17 03/03/17 17:21 06:05 POC Glucometer [id number] [id number] Problem List - Problems (1) Congestive heart failure Code(s): I50.9 - HEART FAILURE, UNSPECIFIED Qualifiers: Congestive heart failure type: unspecified congestive heart failure type Congestive heart failure chronicity: acute on chronic Qualified Code(s): I50.9 - Heart failure, unspecified (2) Afib Code(s): I48.91 - UNSPECIFIED ATRIAL FIBRILLATION (3) Dyspnea Code(s): R06.00 - DYSPNEA, UNSPECIFIED (4) Morbid (severe) obesity due to excess calories Code(s): E66.01 - MORBID (SEVERE) OBESITY DUE TO EXCESS CALORIES Assessment/Plan IMP DYSPNEA IMPROVING ASCITES -> (?) CIRRHOSIS AFIB MORBID OBESITY LIKELY OSAS LIVER LACERATION PLAN LASIX O2 INHALED BRONCHODILATORS PRN DAILY WTS SLEEP STUDIES OUTPATIENT WILL NEED TO CLARIFY AC DR YUEN
--- NOTE | 2017-03-03 23:22 | PN ---
Progress Note (short form) - Note Progress Note: Patient seen and examined feels ok no complaints AFVSS Cor: RSR, No murmurs, No gallops Lungs: Clear to P&A Abd: Soft, Normal bowel sounds, ascites+ lower ext. edema --2+ edema Labs/Meds reviewed A/P 72 y/o patient presents to the ED complaining of a two week history of worsening peripheral edema, shortness of breath, POSADAS and orthopnea. History of CHF, known a fib. Recently admitted to [facility] for liver laceration-- anticoagulation was stopped at that time. Patient and family state that patient was feeling better while admitted, but has SOB has been getting gradually worse. On exam, patient is tachypneic and becomes short of breath with just moving in the stretcher. Seen by outpatient boom crane operator, who has doubled his PO lasix with no response. Most likely acute CHF exacerbation. PAtient does not recall how long he has been on coumadin. He says 6months and ca ,me off 2 weeks ago. He states that he did not fall but says that he was sitting at the counterand stooped forward over the counter. CHF/afib s/p paracentesis cytology--mesothelial cells ascites --? CHF ? liver disease
--- NOTE | 2017-03-03 23:27 | PN ---
Progress Note, Physician - Current Medication List Current Medications: Active Medications Acetaminophen (Tylenol -) 650 mg PO Q6H PRN PRN Reason: FEVER OR PAIN Last Admin: 02/28/17 21:35 Dose: 650 mg Amlodipine Besylate (Norvasc -) 10 mg PO DAILY [facility] Last Admin: 03/03/17 09:34 Dose: 10 mg Aspirin (Asa -) 81 mg PO DAILY [facility] Last Admin: 03/03/17 09:34 Dose: 81 mg Atenolol (Tenormin -) 25 mg PO DAILY [facility] Last Admin: 03/03/17 09:37 Dose: 25 mg Citalopram Hydrobromide (Celexa -) 20 mg PO DAILY [facility] Last Admin: 03/03/17 09:34 Dose: 20 mg Clonidine (Catapres -) 0.2 mg PO BID [facility] Last Admin: 03/03/17 21:30 Dose: 0.2 mg Furosemide (Lasix -) 40 mg PO DAILY [facility] Last Admin: 03/03/17 09:34 Dose: 40 mg Insulin Detemir (Levemir Vial) 24 units SQ DAILY [facility] Last Admin: 03/03/17 09:35 Dose: 24 unit Lisinopril (Prinivil) 5 mg PO DAILY [facility] Last Admin: 03/03/17 09:34 Dose: 5 mg Metformin HCl (Glucophage -) 500 mg PO BIDAC [facility] Last Admin: 03/03/17 17:33 Dose: 500 mg Tamsulosin HCl (Flomax -) 0.4 mg PO DAILY@0830 [facility] Last Admin: 03/03/17 09:34 Dose: 0.4 mg - Objective Vital Signs: Vital Signs Temperature 98.0 F 03/03/17 22:00 Pulse Rate 77 03/03/17 22:00 Respiratory Rate 20 03/03/17 22:00 Blood Pressure 132/88 03/03/17 22:00 O2 Sat by Pulse Oximetry (%) 95 03/03/17 21:00 Labs: CBC, BMP 03/02/17 10:00 02/28/17 05:15 INR, PTT INR 1.36 (0.82-1.09) H 02/25/17 05:20 Problem List - Problems (1) Acute on chronic diastolic (congestive) heart failure Code(s): I50.33 - ACUTE ON CHRONIC DIASTOLIC (CONGESTIVE) HEART FAILURE (2) Ascites Code(s): R18.8 - OTHER ASCITES (3) Afib Code(s): I48.91 - UNSPECIFIED ATRIAL FIBRILLATION (4) HTN (hypertension) Code(s): I10 - ESSENTIAL (PRIMARY) HYPERTENSION (5) Diabetes Code(s): E11.9 - TYPE 2 DIABETES MELLITUS WITHOUT COMPLICATIONS (6) BPH (benign prostatic hyperplasia) Code(s): N40.0 - BENIGN PROSTATIC HYPERPLASIA WITHOUT LOWER URINRY TRACT SYMP
[2017-03-04] MEDS: metFORMIN HCL 500 MG TABLET (FP) PO SCH ×2 (06:11→17:31)
[2017-03-04 08:09] LABS: BASOPHIL 0.7 % (0-2.0); EOSINOPHIL 2.8 % (0-4.5); MCH 31.4 pg (25.7-33.7); MCHC 32.9 g/dl (32.0-35.9); MEAN CELL VOLUME 95.3 fl (80-96); MEAN PLT VOLUME 8.3 fl (7.5-11.1); NEUTROPHILS 63.4 % (42.8-82.8); PLATELET COUNT 144 K/MM3 (134-434); RDW 16.4 % (11.9-15.9); WHITE BLOOD COUNT 7.1 K/mm3 (4.0-10.0)
[2017-03-04 08:24] LABS: ALBUMIN 2.9 g/dl (3.4-5.0); ANION GAP 8 (8-16); CO2 30 mmol/L (21-32); GLUCOSE,RANDOM 115 mg/dL (74-106)
[2017-03-04 08:27] LABS: ALK PHOS 71 U/L (45-117); BILIRUBIN,TOTAL 0.9 mg/dL (0.2-1.0); CREATININE 1.2 mg/dL (0.7-1.3); SGOT/AST 17 U/L (15-37); SGPT/ALT 21 U/L (12-78); TOT PROT 6.7 g/dl (6.4-8.2)
[2017-03-04] MEDS: FUROSEMIDE 40 MG TABLET (FP) PO SCH (09:23)
[2017-03-04] MEDS: TAMSULOSIN HCL 0.4 MG CAP.ER.24H (FP) PO SCH (09:23)
[2017-03-04] MEDS: CITALOPRAM HYDROBROMIDE 20 MG TABLET (FP) PO SCH (09:23)
[2017-03-04] MEDS: ASPIRIN 81 MG CHEWABLE TABLETS PO SCH (09:24)
[2017-03-04] MEDS: amLODIPine BESYLATE 10 MG TABLET (FP) PO SCH (09:24)
[2017-03-04] MEDS: INSULIN DETEMIR 100 UNITS/ML MDV SQ SCH (09:24)
[2017-03-04] MEDS: LISINOPRIL 5 MG TABLET (FP) PO SCH (09:24)
[2017-03-04] MEDS: cloNIDine HCL 0.1 MG TABLET PO SCH ×2 (09:24→23:17)
--- NOTE | 2017-03-04 10:24 | PN ---
Progress Note (short form) - Note Progress Note: OOB to chair. No acute events overnight. Denies SOB. No CP. Intake & Output 03/01/17 03/02/17 03/03/17 03/04/17 23:59 23:59 23:59 23:59 Intake Total 580 120 120 200 Output Total 1600 600 Balance 580 120 -1480 -400 Weight 266 lb 5 oz 273 lb 8 oz Last Vital Signs Temp Pulse Resp BP Pulse Ox 98.0 F 73 20 153/91 96 03/04/17 06:00 03/04/17 06:00 03/04/17 08:31 03/04/17 06:00 03/04/17 08:31 Active Medications Acetaminophen (Tylenol -) 650 mg PO Q6H PRN PRN Reason: FEVER OR PAIN Last Admin: 02/28/17 21:35 Dose: 650 mg Amlodipine Besylate (Norvasc -) 10 mg PO DAILY [facility] Last Admin: 03/04/17 09:24 Dose: 10 mg Aspirin (Asa -) 81 mg PO DAILY [facility] Last Admin: 03/04/17 09:24 Dose: 81 mg Atenolol (Tenormin -) 25 mg PO DAILY [facility] Last Admin: 03/03/17 09:37 Dose: 25 mg Citalopram Hydrobromide (Celexa -) 20 mg PO DAILY [facility] Last Admin: 03/04/17 09:23 Dose: 20 mg Clonidine (Catapres -) 0.2 mg PO BID [facility] Last Admin: 03/04/17 09:24 Dose: 0.2 mg Furosemide (Lasix -) 40 mg PO DAILY [facility] Last Admin: 03/04/17 09:23 Dose: 40 mg Insulin Detemir (Levemir Vial) 24 units SQ DAILY [facility] Last Admin: 03/04/17 09:24 Dose: 24 unit Lisinopril (Prinivil) 5 mg PO DAILY [facility] Last Admin: 03/04/17 09:24 Dose: 5 mg [facility] Last Admin: 03/04/17 06:11 Dose: 500 mg Tamsulosin HCl (Flomax -) 0.4 mg PO DAILY@0830 [facility] Last Admin: 03/04/17 09:23 Dose: 0.4 mg Constitutional: Yes: NAD Eyes: Yes: WNL HENT: Yes: WNL Neck: Yes: WNL Cardiovascular: Yes: Pulse Irregular, S1, S2 Respiratory: Yes: Diminished at the bases Gastrointestinal: Yes: Normal Bowel Sounds, Soft Extremities: Yes: WNL Edema: Yes Labs: Laboratory Results - last 24 hr 03/03/17 03/04/17 03/04/17 16:28 05:10 05:10 WBC 7.1 RBC 4.18 Hgb 13.1 Hct 39.9 MCV 95.3 MCHC 32.9 RDW 16.4 H Plt Count 144 MPV 8.3 Neutrophils % 63.4 Lymphocytes % 21.0 D Monocytes % 12.1 H Eosinophils % 2.8 Basophils % 0.7 Sodium 140 Potassium 4.7 Chloride 102 Carbon Dioxide 30 Anion Gap 8 BUN 40 H Creatinine 1.2 Creat Clearance w eGFR 59.18 POC Glucometer 205.09482 Random Glucose 115 H Calcium 9.0 Total Bilirubin 0.9 D AST 17 ALT 21 Alkaline Phosphatase 71 Total Protein 6.7 Albumin 2.9 L 03/04/17 05:29 WBC RBC Hgb Hct MCV MCHC RDW Plt Count MPV Neutrophils % Lymphocytes % Monocytes % Eosinophils % Basophils % Sodium Potassium Chloride Carbon Dioxide Anion Gap BUN Creatinine Creat Clearance w eGFR POC Glucometer 143.97024 Random Glucose Calcium Total Bilirubin AST ALT Alkaline Phosphatase Total Protein Albumin Problem List - Problems (1) Congestive heart failure Code(s): I50.9 - HEART FAILURE, UNSPECIFIED Qualifiers: Congestive heart failure type: unspecified congestive heart failure type Congestive heart failure chronicity: acute on chronic Qualified Code(s): I50.9 - Heart failure, unspecified (2) Afib Code(s): I48.91 - UNSPECIFIED ATRIAL FIBRILLATION (3) Dyspnea Code(s): R06.00 - DYSPNEA, UNSPECIFIED (4) Morbid (severe) obesity due to excess calories Code(s): E66.01 - MORBID (SEVERE) OBESITY DUE TO EXCESS CALORIES Assessment/Plan IMP DYSPNEA IMPROVING ASCITES -> (?) CIRRHOSIS DUE TO RIGHT AFIB MORBID OBESITY LIKELY OSAS LIVER LACERATION PLAN LASIX O2 INHALED BRONCHODILATORS PRN DAILY WTS SLEEP STUDIES OUTPATIENT WILL NEED TO CLARIFY AC DR YUEN
[2017-03-04] MEDS: ATENOLOL 25 MG TABLET (FP) PO SCH (10:33)
--- NOTE | 2017-03-04 13:54 | PN ---
Progress Note, Physician Chief Complaint: Pt A&Ox3; denies chest pain, abdominal discomfort; no dyspnea. History of Present Illness: he patient is a 72 year old male ([place] descent) with a significant past medical history of CHF, and A-fib (on ASA; off warfarin due to bleed), ?sleep apnea, sent by Dr. Miller to the Emergency Department with shortness of breath and edema. As per the patients son, the patient was admitted to [facility] a couple weeks ago s/p fall and was diagnosed with a liver disease and internal bleeding, as he was on blood thinners. At [place] he was taken off blood thinners and placed on Lasix. Since discharged from [place] the patients son admits to a progressive increase in shortness of breath and edema. The patients son admits that his shortness of breath is exacerbated by standing, and cannot walk due to his symptoms. He also admits to orthopnea. On Monday the patient saw his sand carrier who increased his Lasix dose to 2 pills per day. Today the patient saw his urologist, Dr. Miller who reported blood in his urine, and referred him to the ER due to his sob and edema. The patient denies cough, fever, and chills. Patient denies palpitations, or diaphoresis. Patient denies dysuria. Patient denies nausea, vomiting, and diarrhea. PCP: Dr. Guillen Urologist: Dr. Miller Inspector Type: Dr. Clement Dwyer - Current Medication List Current Medications: Active Medications Acetaminophen (Tylenol -) 650 mg PO Q6H PRN PRN Reason: FEVER OR PAIN Last Admin: 02/28/17 21:35 Dose: 650 mg Amlodipine Besylate (Norvasc -) 10 mg PO DAILY [facility] Last Admin: 03/04/17 09:24 Dose: 10 mg Aspirin (Asa -) 81 mg PO DAILY [facility] Last Admin: 03/04/17 09:24 Dose: 81 mg Atenolol (Tenormin -) 25 mg PO DAILY [facility] Last Admin: 03/04/17 10:33 Dose: 25 mg Citalopram Hydrobromide (Celexa -) 20 mg PO DAILY [facility] Last Admin: 03/04/17 09:23 Dose: 20 mg Clonidine (Catapres -) 0.2 mg PO BID [facility] Last Admin: 03/04/17 09:24 Dose: 0.2 mg Furosemide (Lasix -) 40 mg PO DAILY [facility] Last Admin: 03/04/17 09:23 Dose: 40 mg Insulin Detemir (Levemir Vial) 24 units SQ DAILY [facility] Last Admin: 03/04/17 09:24 Dose: 24 unit Lisinopril (Prinivil) 5 mg PO DAILY [facility] Last Admin: 03/04/17 09:24 Dose: 5 mg Metformin HCl (Glucophage -) 500 mg PO BIDAC [facility] Last Admin: 03/04/17 06:11 Dose: 500 mg Tamsulosin HCl (Flomax -) 0.4 mg PO DAILY@0830 [facility] Last Admin: 03/04/17 09:23 Dose: 0.4 mg - Objective Vital Signs: Vital Signs Temperature 98.5 F 03/04/17 10:00 Pulse Rate 68 03/04/17 10:00 Respiratory Rate 20 03/04/17 10:00 Blood Pressure 143/98 03/04/17 10:00 O2 Sat by Pulse Oximetry (%) 96 03/04/17 08:31 Constitutional: Yes: Obese Eyes: Yes: WNL HENT: Yes: WNL Neck: Yes: WNL Cardiovascular: Yes: Pulse Irregular, S1 (varies in intensity) Respiratory: Yes: Diminished Gastrointestinal: Yes: Soft, Abdomen, Obese ...Rectal Exam: Yes: Deferred Genitourinary: No: Anuria Musculoskeletal: Yes: Muscle Weakness Edema: No Peripheral Pulses WNL: Yes Integumentary: Yes: WNL Neurological: Yes: WNL Psychiatric: Yes: WNL Labs: CBC, BMP 03/04/17 05:10 03/04/17 05:10 INR, PTT INR 1.36 (0.82-1.09) H 02/25/17 05:20 Problem List - Problems (1) Acute on chronic diastolic (congestive) heart failure Code(s): I50.33 - ACUTE ON CHRONIC DIASTOLIC (CONGESTIVE) HEART FAILURE (2) Afib Assessment/Plan: On atenolol for HR control. Was on warfarin; s/p paracentesis.Hx liver disease.Restart when deemed safe by GI. Code(s): I48.91 - UNSPECIFIED ATRIAL FIBRILLATION (3) Ascites Code(s): R18.8 - OTHER ASCITES (4) BPH (benign prostatic hyperplasia) Code(s): N40.0 - BENIGN PROSTATIC HYPERPLASIA WITHOUT LOWER URINRY TRACT SYMP (5) Diabetes Code(s): E11.9 - TYPE 2 DIABETES MELLITUS WITHOUT COMPLICATIONS (6) Dyspnea Code(s): R06.00 - DYSPNEA, UNSPECIFIED (7) HTN (hypertension) Code(s): I10 - ESSENTIAL (PRIMARY) HYPERTENSION (8) Morbid (severe) obesity due to excess calories Code(s): E66.01 - MORBID (SEVERE) OBESITY DUE TO EXCESS CALORIES (9) Liver disease Code(s): K76.9 - LIVER DISEASE, UNSPECIFIED (10) Sleep apnea Assessment/Plan: r/o with sleep studies Code(s): G47.30 - SLEEP APNEA, UNSPECIFIED
--- NOTE | 2017-03-05 01:40 | PN ---
Progress Note, Physician - Current Medication List Current Medications: Active Medications Acetaminophen (Tylenol -) 650 mg PO Q6H PRN PRN Reason: FEVER OR PAIN Last Admin: 02/28/17 21:35 Dose: 650 mg Amlodipine Besylate (Norvasc -) 10 mg PO DAILY [facility] Last Admin: 03/04/17 09:24 Dose: 10 mg Aspirin (Asa -) 81 mg PO DAILY [facility] Last Admin: 03/04/17 09:24 Dose: 81 mg Atenolol (Tenormin -) 25 mg PO DAILY [facility] Last Admin: 03/04/17 10:33 Dose: 25 mg Citalopram Hydrobromide (Celexa -) 20 mg PO DAILY [facility] Last Admin: 03/04/17 09:23 Dose: 20 mg Clonidine (Catapres -) 0.2 mg PO BID [facility] Last Admin: 03/04/17 23:17 Dose: 0.2 mg Furosemide (Lasix -) 40 mg PO DAILY [facility] Last Admin: 03/04/17 09:23 Dose: 40 mg Insulin Detemir (Levemir Vial) 24 units SQ DAILY [facility] Last Admin: 03/04/17 09:24 Dose: 24 unit Lisinopril (Prinivil) 5 mg PO DAILY [facility] Last Admin: 03/04/17 09:24 Dose: 5 mg Metformin HCl (Glucophage -) 500 mg PO BIDAC [facility] Last Admin: 03/04/17 17:31 Dose: 500 mg Tamsulosin HCl (Flomax -) 0.4 mg PO DAILY@0830 [facility] Last Admin: 03/04/17 09:23 Dose: 0.4 mg - Objective Vital Signs: Vital Signs Temperature 95.8 F L 03/04/17 14:58 Pulse Rate 68 03/04/17 10:00 Respiratory Rate 20 03/04/17 14:58 Blood Pressure 126/88 03/04/17 14:58 O2 Sat by Pulse Oximetry (%) 96 03/04/17 21:00 Labs: CBC, BMP 03/04/17 05:10 03/04/17 05:10 INR, PTT INR 1.36 (0.82-1.09) H 02/25/17 05:20 Problem List - Problems (1) Acute on chronic diastolic (congestive) heart failure Code(s): I50.33 - ACUTE ON CHRONIC DIASTOLIC (CONGESTIVE) HEART FAILURE (2) Ascites Code(s): R18.8 - OTHER ASCITES (3) Afib Code(s): I48.91 - UNSPECIFIED ATRIAL FIBRILLATION (4) HTN (hypertension) Code(s): I10 - ESSENTIAL (PRIMARY) HYPERTENSION (5) Diabetes Code(s): E11.9 - TYPE 2 DIABETES MELLITUS WITHOUT COMPLICATIONS (6) BPH (benign prostatic hyperplasia) Code(s): N40.0 - BENIGN PROSTATIC HYPERPLASIA WITHOUT LOWER URINRY TRACT SYMP
[2017-03-05] MEDS: metFORMIN HCL 500 MG TABLET (FP) PO SCH ×2 (06:50→17:09)
[2017-03-05] MEDS: TAMSULOSIN HCL 0.4 MG CAP.ER.24H (FP) PO SCH (09:32)
[2017-03-05] MEDS: ASPIRIN 81 MG CHEWABLE TABLETS PO SCH (09:32)
[2017-03-05] MEDS: cloNIDine HCL 0.1 MG TABLET PO SCH ×2 (09:32→21:16)
[2017-03-05] MEDS: amLODIPine BESYLATE 10 MG TABLET (FP) PO SCH (09:32)
[2017-03-05] MEDS: CITALOPRAM HYDROBROMIDE 20 MG TABLET (FP) PO SCH (09:33)
[2017-03-05] MEDS: LISINOPRIL 5 MG TABLET (FP) PO SCH (09:33)
[2017-03-05] MEDS: INSULIN DETEMIR 100 UNITS/ML MDV SQ SCH (09:33)
[2017-03-05] MEDS: FUROSEMIDE 40 MG TABLET (FP) PO SCH (09:33)
[2017-03-05] MEDS: ATENOLOL 25 MG TABLET (FP) PO SCH (09:36)
--- NOTE | 2017-03-05 12:20 | PN ---
Progress Note (short form) - Note Progress Note: OOB to chair. No acute events overnight. Denies SOB. No CP. Intake & Output 03/02/17 03/03/17 03/04/17 03/05/17 23:59 23:59 23:59 23:59 Intake Total 120 120 200 Output Total 1600 600 Balance 120 -1480 -400 Weight 266 lb 5 oz 273 lb 8 oz Last Vital Signs Temp Pulse Resp BP Pulse Ox 98.2 F 79 20 137/100 96 03/05/17 10:00 03/05/17 10:00 03/05/17 10:00 03/05/17 10:00 03/05/17 10:00 Active Medications Acetaminophen (Tylenol -) 650 mg PO Q6H PRN PRN Reason: FEVER OR PAIN Last Admin: 02/28/17 21:35 Dose: 650 mg Amlodipine Besylate (Norvasc -) 10 mg PO DAILY [facility] Last Admin: 03/05/17 09:32 Dose: 10 mg Aspirin (Asa -) 81 mg PO DAILY [facility] Last Admin: 03/05/17 09:32 Dose: 81 mg Atenolol (Tenormin -) 25 mg PO DAILY [facility] Last Admin: 03/05/17 09:36 Dose: 25 mg Citalopram Hydrobromide (Celexa -) 20 mg PO DAILY [facility] Last Admin: 03/05/17 09:33 Dose: 20 mg Clonidine (Catapres -) 0.2 mg PO BID [facility] Last Admin: 03/05/17 09:32 Dose: 0.2 mg Furosemide (Lasix -) 40 mg PO DAILY [facility] Last Admin: 03/05/17 09:33 Dose: 40 mg Insulin Detemir (Levemir Vial) 24 units SQ DAILY [facility] Last Admin: 03/05/17 09:33 Dose: 24 unit Lisinopril (Prinivil) 5 mg PO DAILY [facility] Last Admin: 03/05/17 09:33 Dose: 5 mg [facility] -) [facility] Last Admin: 03/05/17 06:50 Dose: 500 mg Tamsulosin HCl (Flomax -) 0.4 mg PO DAILY@0830 [facility] Last Admin: 03/05/17 09:32 Dose: 0.4 mg Constitutional: Yes: NAD Eyes: Yes: WNL HENT: Yes: WNL Neck: Yes: WNL Cardiovascular: Yes: Pulse Irregular, S1, S2 Respiratory: Yes: Diminished at the bases Gastrointestinal: Yes: Normal Bowel Sounds, Soft Extremities: Yes: WNL Edema: Yes Labs: Laboratory Results - last 24 hr 03/04/17 17:14 POC Glucometer [id number] Problem List - Problems (1) Congestive heart failure Code(s): I50.9 - HEART FAILURE, UNSPECIFIED Qualifiers: Congestive heart failure type: unspecified congestive heart failure type Congestive heart failure chronicity: acute on chronic Qualified Code(s): I50.9 - Heart failure, unspecified (2) Afib Code(s): I48.91 - UNSPECIFIED ATRIAL FIBRILLATION (3) Dyspnea Code(s): R06.00 - DYSPNEA, UNSPECIFIED (4) Morbid (severe) obesity due to excess calories Code(s): E66.01 - MORBID (SEVERE) OBESITY DUE TO EXCESS CALORIES Assessment/Plan IMP DYSPNEA IMPROVING ASCITES -> (?) CIRRHOSIS DUE TO RIGHT AFIB MORBID OBESITY LIKELY OSAS LIVER LACERATION PLAN LASIX O2 INHALED BRONCHODILATORS PRN DAILY WTS SLEEP STUDIES OUTPATIENT WILL NEED TO CLARIFY AC GOALS DR YUEN
--- NOTE | 2017-03-05 12:44 | PN ---
Progress Note, Physician Chief Complaint: Pt OOB in chair, eating lunch; no dyspnea or chest pain; no palpitations. History of Present Illness: he patient is a 72 year old male ([place] descent) with a significant past medical history of CHF, and A-fib (on ASA; off warfarin due to bleed), morbid obesity, ?sleep apnea, sent by Dr. Miller to the Emergency Department with shortness of breath and edema. As per the patients son, the patient was admitted to [facility] a couple weeks ago s/p fall and was diagnosed with a liver disease and internal bleeding (on blood thinners). At [facility] he was taken off blood thinners and placed on Lasix. Since discharge from [facility] the patients son admits to a progressive increase in shortness of breath and edema. The patients son admits that his shortness of breath is exacerbated by standing, and cannot walk due to his symptoms. He also admits to orthopnea. On Monday the patient saw his information security risk analyst who increased his Lasix dose to 2 pills per day. Today the patient saw his urologist, Dr. Miller who reported blood in his urine, and referred him to the ER due to his sob and edema. The patient denies cough, fever, and chills. Patient denies palpitations, or diaphoresis. Patient denies dysuria. Patient denies nausea, vomiting, and diarrhea. PCP: Dr. Guillen Urologist: Dr. Miller Brick Handler: Dr. Clement Dwyer - Current Medication List Current Medications: Active Medications Acetaminophen (Tylenol -) 650 mg PO Q6H PRN PRN Reason: FEVER OR PAIN Last Admin: 02/28/17 21:35 Dose: 650 mg Amlodipine Besylate (Norvasc -) 10 mg PO DAILY [facility] Last Admin: 03/05/17 09:32 Dose: 10 mg Aspirin (Asa -) 81 mg PO DAILY [facility] Last Admin: 03/05/17 09:32 Dose: 81 mg Atenolol (Tenormin -) 25 mg PO DAILY [facility] Last Admin: 03/05/17 09:36 Dose: 25 mg Citalopram Hydrobromide (Celexa -) 20 mg PO DAILY [facility] Last Admin: 03/05/17 09:33 Dose: 20 mg Clonidine (Catapres -) 0.2 mg PO BID [facility] Last Admin: 03/05/17 09:32 Dose: 0.2 mg Furosemide (Lasix -) 40 mg PO DAILY [facility] Last Admin: 03/05/17 09:33 Dose: 40 mg Insulin Detemir (Levemir Vial) 24 units SQ DAILY [facility] Last Admin: 03/05/17 09:33 Dose: 24 unit Lisinopril (Prinivil) 5 mg PO DAILY [facility] Last Admin: 03/05/17 09:33 Dose: 5 mg Metformin HCl (Glucophage -) 500 mg PO BIDAC [facility] Last Admin: 03/05/17 06:50 Dose: 500 mg Tamsulosin HCl (Flomax -) 0.4 mg PO DAILY@0830 [facility] Last Admin: 03/05/17 09:32 Dose: 0.4 mg - Objective Vital Signs: Vital Signs Temperature 98.2 F 03/05/17 10:00 Pulse Rate 79 03/05/17 10:00 Respiratory Rate 20 03/05/17 10:00 Blood Pressure 137/100 03/05/17 10:00 O2 Sat by Pulse Oximetry (%) 96 03/05/17 10:00 Constitutional: Yes: Calm, Obese Eyes: Yes: WNL HENT: Yes: WNL Neck: Yes: Rigid Cardiovascular: Yes: Pulse Irregular, S1 (varies in intensity) Respiratory: Yes: Diminished Gastrointestinal: Yes: Soft, Abdomen, Obese ...Rectal Exam: Yes: Deferred Genitourinary: No: Anuria Musculoskeletal: Yes: Muscle Weakness Extremities: Yes: Cool Edema: No Peripheral Pulses WNL: Yes Integumentary: Yes: WNL Neurological: Yes: WNL Psychiatric: Yes: WNL Labs: CBC, BMP 03/04/17 05:10 03/04/17 05:10 INR, PTT INR 1.36 (0.82-1.09) H 02/25/17 05:20 - ....Imaging Other: Image Reviewed (telemetry: AF) Problem List - Problems (1) HTN (hypertension) Assessment/Plan: Caution with combination of clonidine + atenolol (bradycarda; potenetial for dangerously high/refractory rebound HTN if one agent is abruptly stopped), amlodipine, lisinopril, furosemide. Code(s): I10 - ESSENTIAL (PRIMARY) HYPERTENSION (2) Acute on chronic diastolic (congestive) heart failure Code(s): I50.33 - ACUTE ON CHRONIC DIASTOLIC (CONGESTIVE) HEART FAILURE (3) Afib Assessment/Plan: On atenolol for HR control. Was on warfarin; s/p paracentesis.Hx liver laceration. As noted earlier, await input from pt's PMD and information security risk analyst regarding restart of anticoagulation. On ASA presently. Code(s): I48.91 - UNSPECIFIED ATRIAL FIBRILLATION (4) Ascites Assessment/Plan: s/p paracentesis. No bacterial growth. ++blood; +WBCs. Code(s): R18.8 - OTHER ASCITES (5) BPH (benign prostatic hyperplasia) Code(s): N40.0 - BENIGN PROSTATIC HYPERPLASIA WITHOUT LOWER URINRY TRACT SYMP (6) Diabetes Code(s): E11.9 - TYPE 2 DIABETES MELLITUS WITHOUT COMPLICATIONS (7) Dyspnea Code(s): R06.00 - DYSPNEA, UNSPECIFIED (8) Morbid (severe) obesity due to excess calories Code(s): E66.01 - MORBID (SEVERE) OBESITY DUE TO EXCESS CALORIES (9) Liver disease Assessment/Plan: ?liver laceration after fall. Code(s): K76.9 - LIVER DISEASE, UNSPECIFIED (10) Sleep apnea Assessment/Plan: r/o with sleep studies Code(s): G47.30 - SLEEP APNEA, UNSPECIFIED (11) Hyperlipidemia Assessment/Plan: f/u lipid panel. Code(s): E78.5 - HYPERLIPIDEMIA, UNSPECIFIED
--- NOTE | 2017-03-05 23:46 | PN ---
Progress Note, Physician - Current Medication List Current Medications: Active Medications Acetaminophen (Tylenol -) 650 mg PO Q6H PRN PRN Reason: FEVER OR PAIN Last Admin: 02/28/17 21:35 Dose: 650 mg Amlodipine Besylate (Norvasc -) 10 mg PO DAILY [facility] Last Admin: 03/05/17 09:32 Dose: 10 mg Aspirin (Asa -) 81 mg PO DAILY [facility] Last Admin: 03/05/17 09:32 Dose: 81 mg Atenolol (Tenormin -) 25 mg PO DAILY [facility] Last Admin: 03/05/17 09:36 Dose: 25 mg Citalopram Hydrobromide (Celexa -) 20 mg PO DAILY [facility] Last Admin: 03/05/17 09:33 Dose: 20 mg Clonidine (Catapres -) 0.2 mg PO BID [facility] Last Admin: 03/05/17 21:16 Dose: 0.2 mg Furosemide (Lasix -) 40 mg PO DAILY [facility] Last Admin: 03/05/17 09:33 Dose: 40 mg Insulin Detemir (Levemir Vial) 24 units SQ DAILY [facility] Last Admin: 03/05/17 09:33 Dose: 24 unit Lisinopril (Prinivil) 5 mg PO DAILY [facility] Last Admin: 03/05/17 09:33 Dose: 5 mg Metformin HCl (Glucophage -) 500 mg PO BIDAC [facility] Last Admin: 03/05/17 17:09 Dose: 500 mg Tamsulosin HCl (Flomax -) 0.4 mg PO DAILY@0830 [facility] Last Admin: 03/05/17 09:32 Dose: 0.4 mg - Objective Vital Signs: Vital Signs Temperature 98.8 F 03/05/17 13:57 Pulse Rate 67 03/05/17 13:57 Respiratory Rate 22 03/05/17 20:15 Blood Pressure 112/85 03/05/17 13:57 O2 Sat by Pulse Oximetry (%) 97 03/05/17 20:15 Labs: CBC, BMP 03/04/17 05:10 03/04/17 05:10 INR, PTT INR 1.36 (0.82-1.09) H 02/25/17 05:20 Problem List - Problems (1) Acute on chronic diastolic (congestive) heart failure Code(s): I50.33 - ACUTE ON CHRONIC DIASTOLIC (CONGESTIVE) HEART FAILURE (2) Ascites Code(s): R18.8 - OTHER ASCITES (3) Afib Code(s): I48.91 - UNSPECIFIED ATRIAL FIBRILLATION (4) HTN (hypertension) Code(s): I10 - ESSENTIAL (PRIMARY) HYPERTENSION (5) Diabetes Code(s): E11.9 - TYPE 2 DIABETES MELLITUS WITHOUT COMPLICATIONS (6) BPH (benign prostatic hyperplasia) Code(s): N40.0 - BENIGN PROSTATIC HYPERPLASIA WITHOUT LOWER URINRY TRACT SYMP
[2017-03-06] MEDS: metFORMIN HCL 500 MG TABLET (FP) PO SCH ×2 (06:15→17:19)
[2017-03-06 08:31] LABS: CHOLESTEROL 130 mg/dL (50-200)
[2017-03-06 08:33] LABS: LDL CHOLESTEROL (ONLY SJRH) 81 mg/dL (5-100)
[2017-03-06] MEDS: TAMSULOSIN HCL 0.4 MG CAP.ER.24H (FP) PO SCH (09:08)
[2017-03-06] MEDS: CITALOPRAM HYDROBROMIDE 20 MG TABLET (FP) PO SCH (09:09)
[2017-03-06] MEDS: cloNIDine HCL 0.1 MG TABLET PO SCH ×2 (09:09→21:45)
[2017-03-06] MEDS: FUROSEMIDE 40 MG TABLET (FP) PO SCH (09:09)
[2017-03-06] MEDS: LISINOPRIL 5 MG TABLET (FP) PO SCH (09:09)
[2017-03-06] MEDS: ASPIRIN 81 MG CHEWABLE TABLETS PO SCH (09:09)
[2017-03-06] MEDS: amLODIPine BESYLATE 10 MG TABLET (FP) PO SCH (09:09)
[2017-03-06] MEDS: INSULIN DETEMIR 100 UNITS/ML MDV SQ SCH (09:10)
[2017-03-06] MEDS ORDERED: PT OWN MED DRAWER 7, Y5N ONE (09:12)
[2017-03-06] MEDS: ATENOLOL 25 MG TABLET (FP) PO SCH (09:13)
--- NOTE | 2017-03-06 11:32 | PN ---
Progress Note, Physician History of Present Illness: seen and examined today in [facility]. no overnight events. states he is feeling better and wishes to go home. no new complaints. - Current Medication List Current Medications: Active Medications Acetaminophen (Tylenol -) 650 mg PO Q6H PRN PRN Reason: FEVER OR PAIN Last Admin: 02/28/17 21:35 Dose: 650 mg Amlodipine Besylate (Norvasc -) 10 mg PO DAILY [facility] Last Admin: 03/06/17 09:09 Dose: 10 mg Aspirin (Asa -) 81 mg PO DAILY [facility] Last Admin: 03/06/17 09:09 Dose: 81 mg Atenolol (Tenormin -) 25 mg PO DAILY [facility] Last Admin: 03/06/17 09:13 Dose: 25 mg Citalopram Hydrobromide (Celexa -) 20 mg PO DAILY [facility] Last Admin: 03/06/17 09:09 Dose: 20 mg Clonidine (Catapres -) 0.2 mg PO BID [facility] Last Admin: 03/06/17 09:09 Dose: 0.2 mg Furosemide (Lasix -) 40 mg PO DAILY [facility] Last Admin: 03/06/17 09:09 Dose: 40 mg Insulin Detemir (Levemir Vial) 24 units SQ DAILY [facility] Last Admin: 03/06/17 09:10 Dose: 24 unit Lisinopril (Prinivil) 5 mg PO DAILY [facility] Last Admin: 03/06/17 09:09 Dose: 5 mg Metformin HCl (Glucophage -) 500 mg PO BIDAC [facility] Last Admin: 03/06/17 06:15 Dose: 500 mg Tamsulosin HCl (Flomax -) 0.4 mg PO DAILY@0830 [facility] Last Admin: 03/06/17 09:08 Dose: 0.4 mg - Objective Vital Signs: Vital Signs Temperature 98.8 F 03/05/17 13:57 Pulse Rate 64 03/06/17 10:28 Respiratory Rate 22 03/05/17 20:15 Blood Pressure 143/99 03/06/17 06:00 O2 Sat by Pulse Oximetry (%) 96 03/06/17 10:28 Constitutional: Yes: No Distress, Calm, Obese Eyes: Yes: Conjunctiva Clear, EOM Intact, PERRL HENT: Yes: Atraumatic, Normocephalic Neck: Yes: Supple, Trachea Midline Cardiovascular: Yes: Pulse Irregular, S1, S2. No: Regular Rate and Rhythm, Bradycardia, Tachycardia, Bruit, JVD, Gallop, Murmur, Rub, S3, S4, Varicosities Respiratory: Yes: Regular, CTA Bilaterally. No: Rales, Rhonchi, Wheezes Gastrointestinal: Yes: Normal Bowel Sounds, Soft. No: Distention, Tenderness Edema: Yes Edema: LLE: 2+, RLE: 2+ Peripheral Pulses WNL: Yes Peripheral Pulses: Left Doralis Pedis: 2+, Right Dorsalis Pedis: 2+ Neurological: Yes: Alert, Oriented Psychiatric: Yes: Alert, Oriented Labs: CBC, BMP 03/04/17 05:10 03/04/17 05:10 INR, PTT INR 1.36 (0.82-1.09) H 02/25/17 05:20 - ....Imaging Chest X-ray: Report Reviewed, Image Reviewed EKG: Report Reviewed, Image Reviewed Other: Report Reviewed, Image Reviewed (tele-Afib, HR adequately controlled) Assessment/Plan 72 year old man with a history of afib reportedly taken off AC recently after a fall with liver laceration and bleeding as well as hematuria; reported h/o CHF, obesity, admitted with c/o progressively worsening sob, LE edema, orthopnea. SOB-likely multifactorial: acute on chronic diastolic CHF, PHTN, R sided CHF leading to ascites and LE edema, hypoalbuminemia -LE edema still present, likely chronic and unlikely to completely resolve during hospitalization, BUN/creat trend up with aggressive diuresis -echo showed normal LV systolic function, severe TR, mod PHTN. -Cont PO Lasix at current dose with plan for slow gradual diuresis which will be continued as outpatient -pt is s/p paracentesis Afib-HR controlled: -cont home atenolol -see previous notes for discussion on full AC -cont ASA 81mg daily for now Ok from a cardiac standpoint for discharge planning with close outpatient follow up with his PMD and outpatient parts expediter
--- NOTE | 2017-03-06 15:05 | PN ---
Progress Note (short form) - Note Progress Note: PULMONARY Denies shortness of breath or chest pain. No cough or wheezing. Wants to go home. Last Vital Signs Temp Pulse Resp BP Pulse Ox 98.8 F 64 20 143/99 96 03/05/17 13:57 03/06/17 10:28 03/06/17 10:00 03/06/17 06:00 03/06/17 10:28 Gen: NAD lying supine Heart: RRR Lung: decreased breath sounds at the bases Abd: softly distended, nontender Ext: + edema CBC, BMP 03/04/17 05:10 03/04/17 05:10 Active Medications Acetaminophen (Tylenol -) 650 mg PO Q6H PRN PRN Reason: FEVER OR PAIN Last Admin: 02/28/17 21:35 Dose: 650 mg Amlodipine Besylate (Norvasc -) 10 mg PO DAILY [facility] Last Admin: 03/06/17 09:09 Dose: 10 mg Aspirin (Asa -) 81 mg PO DAILY [facility] Last Admin: 03/06/17 09:09 Dose: 81 mg Atenolol (Tenormin -) 25 mg PO DAILY [facility] Last Admin: 03/06/17 09:13 Dose: 25 mg Citalopram Hydrobromide (Celexa -) 20 mg PO DAILY [facility] Last Admin: 03/06/17 09:09 Dose: 20 mg Clonidine (Catapres -) 0.2 mg PO BID [facility] Last Admin: 03/06/17 09:09 Dose: 0.2 mg Furosemide (Lasix -) 40 mg PO DAILY [facility] Last Admin: 03/06/17 09:09 Dose: 40 mg Insulin Detemir (Levemir Vial) 24 units SQ DAILY [facility] Last Admin: 03/06/17 09:10 Dose: 24 unit Lisinopril (Prinivil) 5 mg PO DAILY [facility] Last Admin: 03/06/17 09:09 Dose: 5 mg [facility] Last Admin: 03/06/17 06:15 Dose: 500 mg Tamsulosin HCl (Flomax -) 0.4 mg PO DAILY@0830 [facility] Last Admin: 03/06/17 09:08 Dose: 0.4 mg A/P Acute on Chronic LV Diastolic Heart Failure Pulmonary HTN Ascites s/p paracentesis with bloody drainage- recent liver laceration post trauma Atrial Fibrillation Morbid Obesity - continue lasix as needed - monitor urine output, creatinine - O2 as needed - rate controlled - anticoagulation per cardiology - d/c planning
--- NOTE | 2017-03-06 21:46 | PN ---
Progress Note, Physician History of Present Illness: No new complaints - Current Medication List Current Medications: Active Medications Acetaminophen (Tylenol -) 650 mg PO Q6H PRN PRN Reason: FEVER OR PAIN Last Admin: 02/28/17 21:35 Dose: 650 mg Amlodipine Besylate (Norvasc -) 10 mg PO DAILY [facility] Last Admin: 03/06/17 09:09 Dose: 10 mg Aspirin (Asa -) 81 mg PO DAILY [facility] Last Admin: 03/06/17 09:09 Dose: 81 mg Atenolol (Tenormin -) 25 mg PO DAILY [facility] Last Admin: 03/06/17 09:13 Dose: 25 mg Citalopram Hydrobromide (Celexa -) 20 mg PO DAILY [facility] Last Admin: 03/06/17 09:09 Dose: 20 mg Clonidine (Catapres -) 0.2 mg PO BID [facility] Last Admin: 03/06/17 09:09 Dose: 0.2 mg Furosemide (Lasix -) 40 mg PO DAILY [facility] Last Admin: 03/06/17 09:09 Dose: 40 mg Insulin Detemir (Levemir Vial) 24 units SQ DAILY [facility] Last Admin: 03/06/17 09:10 Dose: 24 unit Lisinopril (Prinivil) 5 mg PO DAILY [facility] Last Admin: 03/06/17 09:09 Dose: 5 mg Metformin HCl (Glucophage -) 500 mg PO BIDAC [facility] Last Admin: 03/06/17 17:19 Dose: 500 mg Tamsulosin HCl (Flomax -) 0.4 mg PO DAILY@0830 [facility] Last Admin: 03/06/17 09:08 Dose: 0.4 mg - Objective Vital Signs: Vital Signs Temperature 97.6 F 03/06/17 17:01 Pulse Rate 62 03/06/17 14:17 Respiratory Rate 18 03/06/17 17:01 Blood Pressure 119/84 03/06/17 17:01 O2 Sat by Pulse Oximetry (%) 96 03/06/17 10:28 Constitutional: Yes: No Distress Eyes: Yes: WNL HENT: Yes: WNL Neck: Yes: WNL, Supple Cardiovascular: Yes: Pulse Irregular Respiratory: Yes: WNL, Regular, CTA Bilaterally Gastrointestinal: Yes: WNL, Normal Bowel Sounds, Soft Labs: CBC, BMP 03/04/17 05:10 03/04/17 05:10 INR, PTT INR 1.36 (0.82-1.09) H 02/25/17 05:20 Problem List - Problems (1) Acute on chronic diastolic (congestive) heart failure Assessment/Plan: Pt now on po lasix DC planning for am Code(s): I50.33 - ACUTE ON CHRONIC DIASTOLIC (CONGESTIVE) HEART FAILURE (2) Ascites Code(s): R18.8 - OTHER ASCITES (3) Afib Code(s): I48.91 - UNSPECIFIED ATRIAL FIBRILLATION (4) HTN (hypertension) Code(s): I10 - ESSENTIAL (PRIMARY) HYPERTENSION (5) Diabetes Code(s): E11.9 - TYPE 2 DIABETES MELLITUS WITHOUT COMPLICATIONS (6) BPH (benign prostatic hyperplasia) Code(s): N40.0 - BENIGN PROSTATIC HYPERPLASIA WITHOUT LOWER URINRY TRACT SYMP
[2017-03-07] MEDS: metFORMIN HCL 500 MG TABLET (FP) PO SCH ×2 (06:31→17:18)
[2017-03-07] MEDS ORDERED: PT OWN MED DRAWER 7, Y5N ONE (08:43)
[2017-03-07] MEDS: TAMSULOSIN HCL 0.4 MG CAP.ER.24H (FP) PO SCH (08:50)
[2017-03-07] MEDS: amLODIPine BESYLATE 10 MG TABLET (FP) PO SCH (09:15)
[2017-03-07] MEDS: cloNIDine HCL 0.1 MG TABLET PO SCH (09:15)
[2017-03-07] MEDS: FUROSEMIDE 40 MG TABLET (FP) PO SCH (09:15)
[2017-03-07] MEDS: LISINOPRIL 5 MG TABLET (FP) PO SCH (09:15)
[2017-03-07] MEDS: ASPIRIN 81 MG CHEWABLE TABLETS PO SCH (09:15)
[2017-03-07] MEDS: ATENOLOL 25 MG TABLET (FP) PO SCH (09:15)
[2017-03-07] MEDS: CITALOPRAM HYDROBROMIDE 20 MG TABLET (FP) PO SCH (09:15)
[2017-03-07] MEDS: INSULIN DETEMIR 100 UNITS/ML MDV SQ SCH (09:16)
--- NOTE | 2017-03-07 09:26 | PN ---
Progress Note, Physician History of Present Illness: seen and examined today in [facility]. no overnight events. no new complaints. pt feels ready to go home. - Current Medication List Current Medications: Active Medications Acetaminophen (Tylenol -) 650 mg PO Q6H PRN PRN Reason: FEVER OR PAIN Last Admin: 02/28/17 21:35 Dose: 650 mg Amlodipine Besylate (Norvasc -) 10 mg PO DAILY [facility] Last Admin: 03/07/17 09:15 Dose: 10 mg Aspirin (Asa -) 81 mg PO DAILY [facility] Last Admin: 03/07/17 09:15 Dose: 81 mg Atenolol (Tenormin -) 25 mg PO DAILY [facility] Last Admin: 03/07/17 09:15 Dose: 25 mg Citalopram Hydrobromide (Celexa -) 20 mg PO DAILY [facility] Last Admin: 03/07/17 09:15 Dose: 20 mg Clonidine (Catapres -) 0.2 mg PO BID [facility] Last Admin: 03/07/17 09:15 Dose: 0.2 mg Furosemide (Lasix -) 40 mg PO DAILY [facility] Last Admin: 03/07/17 09:15 Dose: 40 mg Insulin Detemir (Levemir Vial) 24 units SQ DAILY [facility] Last Admin: 03/07/17 09:16 Dose: 24 unit Lisinopril (Prinivil) 5 mg PO DAILY [facility] Last Admin: 03/07/17 09:15 Dose: 5 mg Metformin HCl (Glucophage -) 500 mg PO BIDAC [facility] Last Admin: 03/07/17 06:31 Dose: 500 mg Tamsulosin HCl (Flomax -) 0.4 mg PO DAILY@0830 [facility] Last Admin: 03/07/17 08:50 Dose: 0.4 mg - Objective Vital Signs: Vital Signs Temperature 97.8 F 03/07/17 08:00 Pulse Rate 77 03/07/17 08:00 Respiratory Rate 16 03/07/17 08:00 Blood Pressure 133/83 03/07/17 08:00 O2 Sat by Pulse Oximetry (%) 98 03/06/17 22:00 Constitutional: Yes: No Distress, Calm, Obese Eyes: Yes: Conjunctiva Clear, EOM Intact, PERRL HENT: Yes: Atraumatic, Normocephalic Neck: Yes: Supple, Trachea Midline Cardiovascular: Yes: Pulse Irregular, S1, S2. No: Bradycardia, Tachycardia, Bruit, JVD, Gallop, Murmur, Rub, S3, S4, Varicosities Respiratory: Yes: Regular, CTA Bilaterally. No: Rales, Rhonchi, Wheezes Gastrointestinal: Yes: Normal Bowel Sounds, Soft. No: Distention, Tenderness Musculoskeletal: Yes: WNL Extremities: Yes: WNL Edema: Yes Edema: LLE: 1+, RLE: 1+ Peripheral Pulses WNL: Yes Peripheral Pulses: Left Doralis Pedis: 2+, Right Dorsalis Pedis: 2+ Integumentary: Yes: WNL Neurological: Yes: Alert, Oriented, Cran Nerves II-XII Intact Psychiatric: Yes: Alert, Oriented Labs: CBC, BMP 03/04/17 05:10 03/04/17 05:10 INR, PTT INR 1.36 (0.82-1.09) H 02/25/17 05:20 - ....Imaging Chest X-ray: Report Reviewed, Image Reviewed EKG: Report Reviewed, Image Reviewed Other: Report Reviewed, Image Reviewed (tele-AFib, HR adequately controlled) Assessment/Plan 72 year old man with a history of afib reportedly taken off AC recently after a fall with liver laceration and bleeding as well as hematuria; reported h/o CHF, obesity, admitted with c/o progressively worsening sob, LE edema, orthopnea. SOB-likely multifactorial: acute on chronic diastolic CHF, PHTN, R sided CHF leading to ascites and LE edema, hypoalbuminemia -chronic LE edema multifactorial, in addition to diuresis recc leg elevation and trial of compression stockings -BUN/creat trend up with aggressive diuresis suggesting intravascular depletion -echo showed normal LV systolic function, severe TR, mod PHTN. -Cont PO Lasix at current dose with plan for slow gradual diuresis which will be continued as outpatient -pt is s/p paracentesis during this admission for ascites Afib-HR controlled: -cont home atenolol -see previous notes for discussion on full AC -cont ASA 81mg daily for now Ok from a cardiac standpoint for discharge planning with close outpatient follow up with his PMD and outpatient unarmed security officer
[2017-03-07] MEDS ORDERED: FUROSEMIDE 40 MG/4 ML INJECTABLE VIAL IVPUSH ONE (11:28)
--- NOTE | 2017-03-07 11:45 | PN ---
Progress Note (short form) - Note Progress Note: PULMONARY States breathing is improving but scrotum more swollen and painful today. Last Vital Signs Temp Pulse Resp BP Pulse Ox 97.8 F 77 16 133/83 98 03/07/17 08:00 03/07/17 08:00 03/07/17 08:00 03/07/17 08:00 03/06/17 22:00 Gen: NAD at rest Heart: RRR Lung: decreased breath sounds at the bases Abd: softly distended, nontender Ext: + LE edema, scrotal edema CBC, BMP 03/04/17 05:10 03/04/17 05:10 Active Medications Acetaminophen (Tylenol -) 650 mg PO Q6H PRN PRN Reason: FEVER OR PAIN Last Admin: 02/28/17 21:35 Dose: 650 mg Amlodipine Besylate (Norvasc -) 10 mg PO DAILY [facility] Last Admin: 03/07/17 09:15 Dose: 10 mg Aspirin (Asa -) 81 mg PO DAILY [facility] Last Admin: 03/07/17 09:15 Dose: 81 mg Atenolol (Tenormin -) 25 mg PO DAILY [facility] Last Admin: 03/07/17 09:15 Dose: 25 mg Citalopram Hydrobromide (Celexa -) 20 mg PO DAILY [facility] Last Admin: 03/07/17 09:15 Dose: 20 mg Clonidine (Catapres -) 0.2 mg PO BID [facility] Last Admin: 03/07/17 09:15 Dose: 0.2 mg Furosemide (Lasix -) 40 mg PO DAILY [facility] Last Admin: 03/07/17 09:15 Dose: 40 mg Insulin Detemir (Levemir Vial) 24 units SQ DAILY [facility] Last Admin: 03/07/17 09:16 Dose: 24 unit Lisinopril (Prinivil) 5 mg PO DAILY [facility] Last Admin: 03/07/17 09:15 Dose: [facility] mg [facility] Last Admin: 03/07/17 06:31 Dose: 500 mg Tamsulosin HCl (Flomax -) 0.4 mg PO DAILY@0830 [facility] Last Admin: 03/07/17 08:50 Dose: 0.4 mg A/P Acute on Chronic LV Diastolic Heart Failure Pulmonary HTN Ascites s/p paracentesis with bloody drainage- recent liver laceration post trauma Atrial Fibrillation Morbid Obesity - continue lasix as needed, will give extra IV dose today - monitor urine output, creatinine - O2 as needed - rate controlled - anticoagulation per cardiology - d/c planning
[2017-03-07 13:06] VITALS: BP 146/89; PULSE 74; TEMP 98.2
[2017-03-08 16:26] LABS: ALBUMIN FOR UPE 66.4 % (.); GAMMA GLOBULIN % 11.9 % (.); M-SPIKE, % Not Observed % (Not Observed)
== END 2017-03-07 18:52 | disposition home or self-care (01) | DRG 292 ==
LOC: JER 11:58 → JERBED 18:03 → J2W 02-24 09:49
PROVIDERS: ADMIT Internal Medicine; ATTEND Internal Medicine
PROC: 0W9G3ZX Drainage of Peritoneal Cavity, Percutaneous Approach, Diagnostic (ICD-10-PCS; principal; 2017-03-01)
DX: I11.0 Hypertensive heart disease with heart failure (principal); R18.8 Other ascites; I50.33 Acute on chronic diastolic (congestive) heart failure; I27.2 Other secondary pulmonary hypertension; E66.01 Morbid (severe) obesity due to excess calories; Z68.36 Body mass index [BMI] 36.0-36.9, adult; Z71.3 Dietary counseling and surveillance; E78.5 Hyperlipidemia, unspecified; R06.00 Dyspnea, unspecified; E88.09 Other disorders of plasma-protein metabolism, not elsewhere classified; N40.0 Benign prostatic hyperplasia without lower urinary tract symptoms; E11.9 Type 2 diabetes mellitus without complications; Z79.4 Long term (current) use of insulin; S36.113D Laceration of liver, unspecified degree, subsequent encounter; W01.198D Fall on same level from slipping, tripping and stumbling with subsequent striking against other object, subsequent encounter; Y92.9 Unspecified place or not applicable; Y99.9 Unspecified external cause status; R60.0 Localized edema; I36.1 Nonrheumatic tricuspid (valve) insufficiency
CPT/HCPCS: 36415; 71020-TC; 76705-TC; 76942-TC; 80053; 80061; 82042; 82150; 82465; 82550; 82607; 82728; 82747; 82784; 82945; 83540; 83550; 83615; 83721; 83880; 83883; 84155; 84156; 84157; 84165; 84439; 84443; 84478; 84484; 85014; 85025; 85610; 85730; 86334; 87070; 87075; 87102; 87116; 87205; 87206; 87210; 87899; 88108; 88305-TC; 89051; 90670; 93005; 93010; 93306-TC; 93970-TC; 99285-25

== ENCOUNTER 2017-03-27 17:48 | Inpatient (IN) | payer OTHER ==
[2017-03-27 18:05] VITALS: BMI 36.6
--- NOTE | 2017-03-27 19:42 | PDOC ---
History of Present Illness - General Chief Complaint: Chest Pain Stated Complaint: PCP SENT/CHEST PAIN Time Seen by Provider: 03/27/17 19:23 - History of Present Illness Initial Comments: 03/27/17 19:42 CHIEF COMPLAINT: SOB, edema HISTORY OF PRESENT ILLNESS: 72 yo M with hx of CHF, and a-fib sent by PCP Paul to ER with SOB and edema to b/l legs. Patient states he was told to come to the emergency room at his appointment with Dr. Miller two days ago but just came today "because of laziness." he reports that his legs are swollen and painful, and that his "wrapped the legs earlier today so the dirt will stay out of them." No recent travel or sick contacts. PAST MEDICAL HISTORY: Denies past medical history FAMILY HISTORY: Denies SOCIAL HISTORY:Denies tobacco, alcohol, illicit drug use. SURGICAL HISTORY: Denies ALLERGIES: No known drug allergies REVIEW OF SYSTEMS General/Constitutional: Denies fever or chills. Denies weakness, weight change. HEENT: Denies change in vision. Denies ear pain or discharge. Denies sore throat. Cardiovascular: SOB x "a few days." Denies chest pain or shortness of breath. Respiratory: Denies cough, wheezing, or hemoptysis. Gastrointestinal: Denies nausea, vomiting, diarrhea or constipation. Denies rectal bleeding. Genitourinary: Denies dysuria, frequency, or change in urination. Musculoskeletal: "My legs have been getting more swollen for the past two weeks and are painful." Denies joint or muscle swelling or pain. Denies neck or back pain. Skin and breasts: Denies rash or easy bruising. Neurologic: Denies headache, vertigo, loss of consciousness, or loss of sensation. Psychiatric: Denies depression or anxiety. Endocrine: Denies increased thirst. Denies abnormal weight change. Hematologic/Lymphatic: Denies anemia, easy bleeding, or history of blood clots. Allergic/Immunologic: Denies hives or skin allergy. Denies latex allergy. PHYSICAL EXAM General Appearance: Well-appearing, appropriately dressed. No apparent distress , no intoxication. HEENT: EOMI, PERRLA, normal ENT inspection, normal voice, TMs normal, pharynx normal. No conjunctival pallor. No photophobia, scleral icterus. Neck: Supple. Trachea midline. No tenderness, rigidity, carotid bruit, stridor , lymphadenopathy, or thyromegaly. Respiratory/Chest: SOB with increased respiratory effort. Lungs CTAB. No chest tenderness, accessory muscle use. No crackles, rales, rhonchi, stridor, wheezing , dullness Cardiovascular: RRR. S1, S2. Vascular Pulses: Dorsalis-Pedis (R): 2+, Dorsalis-Pedis (L): 2+ Gastrointestinal/Abdominal: Normal bowel sounds. Abdomen soft, non-distended. No tenderness or rebound tenderness. No organomegaly, pulsatile mass, guarding , hernia, hepatomegaly, splenomegaly. Lymphatic: No adenopathy, tenderness. Musculoskeletal/Extremities: 2+ pitting edema to lower extremities b/l. Open ulcer to R garner. LE hot and erythematous b/l. FROM of all extremities, normal capillary refill. Pelvis Stable. No CVA tenderness. No tenderness to extremities, pedal edema, swelling, erythema or deformity. Integumentary: Appropriate color, dry, warm. No cyanosis, erythema, jaundice or rash Neurologic: dry plasterer II-XII intact. Fully oriented, alert. Appropriate mood/affect. Motor strength 5/5. No appreciable EOM palsy, facial droop or sensory deficit. 03/27/17 19:43 Past History - Past Medical History Allergies/Adverse Reactions: Allergies Allergy/AdvReac Type Severity Reaction Status Date / Time codeine Allergy Verified 03/27/17 18:05 iodine Allergy Verified 03/27/17 18:05 Home Medications: Ambulatory Orders Amlodipine Besylate 10 mg PO DAILY 02/23/17 Atenolol [Tenormin -] 25 mg PO DAILY 02/23/17 Citalopram Hydrobromide [Celexa -] 20 mg PO DAILY 02/23/17 Clonidine HCl 0.2 mg PO BID 02/23/17 Furosemide [Lasix] 40 mg PO DAILY 02/23/17 Insulin Glargine,Hum.rec.anlog [Lantus Solostar PEN -] 24 units SQ DAILY Ipratropium/Albuterol Sulfate [Iprat-Albut 0.5-3(2.5) mg/3 ml] 3 ml IH Q6H PRN 02/23/17 Metformin HCl 500 mg PO BID 02/23/17 Tamsulosin HCl [Flomax] 0.4 mg PO DAILY 02/23/17 Aspirin [ASA -] 81 mg PO DAILY #30 tab.chew 02/28/17 Furosemide [Lasix -] 40 mg PO DAILY #30 tablet 02/28/17 Lisinopril [Prinivil] 5 mg PO DAILY #30 tablet 02/28/17 CHF: Yes Diabetes: Yes Disorders: Yes (ENLARGED PROSTATE) HTN: Yes Hypercholesterolemia: Yes - Psycho/Social/Smoking Cessation Hx Suicidal Ideation: No Smoking History: Never smoked Hx Alcohol Use: No Drug/Substance Use Hx: No Substance Use Type: Alcohol Hx Substance Use Treatment: No *Physical Exam - Vital Signs Last Vital Signs Temp Pulse Resp BP Pulse Ox 98.6 F 77 18 159/103 97 03/27/17 17:54 03/27/17 17:54 03/27/17 17:54 03/27/17 17:54 03/27/17 17:54 Heart Score/ECG Review - History History: Moderately suspicious - Electrocardiogram EKG: Non specific repolarization disturbance - Age Age: >/= 65 - Risk Factors Risk Factors Heart Score: Yes Hx Hypertension, Yes Hx Diabetes, Yes Hx Obesity Based on the list above the patient has:: >/=3 risk factors or Hx atherosclerotic disease - Troponin Troponin: >/=3x normal limit - Score Heart Score - Total: 8 ED Treatment Course - LABORATORY CBC & Chemistry Diagram: 03/27/17 20:43 03/27/17 20:43 - ADDITIONAL ORDERS Additional order review: Laboratory Results 03/27/17 03/27/17 03/27/17 20:43 20:43 20:43 INR Sodium 139 Potassium 5.0 Chloride 101 Carbon Dioxide 33 H Anion Gap 5 L BUN 51 H D Creatinine 1.3 Creat Clearance w eGFR 53.96 Random Glucose 146 H D Lactic Acid 1.2 Calcium 9.2 Magnesium 2.2 Total Bilirubin 0.8 AST 17 ALT 20 Alkaline Phosphatase 70 Creatine Kinase 33 L Troponin I 0.22 H D B-Natriuretic Peptide 4526.46 H Total Protein 6.8 Albumin 2.9 L 03/27/17 20:43 INR 1.33 H Sodium Potassium Chloride Carbon Dioxide Anion Gap BUN Creatinine Creat Clearance w eGFR Random Glucose Lactic Acid Calcium Magnesium Total Bilirubin AST ALT Alkaline Phosphatase Creatine Kinase Troponin I B-Natriuretic Peptide Total Protein Albumin 03/27/17 20:43 RBC 3.98 L MCV 95.1 MCHC 32.6 RDW 15.9 MPV 8.6 Neutrophils % 75.2 Lymphocytes % 12.4 D Monocytes % 10.4 H Eosinophils % 1.5 Basophils % 0.5 - RADIOLOGY Radiology Studies Ordered: Category Date Time Status CHEST PA & LAT [RAD] Stat Radiology 03/27/17 19:23 Ordered DUPLEX VASCUL US-2LEGS [US] Stat Ultrasound 03/27/17 20:42 Ordered Medical Decision Making - Medical Decision Making 03/27/17 20:58 72 yo M with hx of CHF, and a-fib sent by PCP Paul to ER with SOB and edema to b/l legs. -CBC, CMP, PT/INR, card profile, BNP *DC/Admit/Observation/Transfer Diagnosis at time of Disposition: Acute coronary syndrome Afib Qualifiers: Atrial fibrillation type: chronic Qualified Code(s): I48.2 - Chronic atrial fibrillation Congestive heart failure Qualifiers: Congestive heart failure type: unspecified congestive heart failure type Congestive heart failure chronicity: acute on chronic Qualified Code(s): I50.9 - Heart failure, unspecified - Discharge Dispostion Admit: Yes
[2017-03-27 20:54] LABS: BASOPHIL 0.5 % (0-2.0); EOSINOPHIL 1.5 % (0-4.5); MCHC 32.6 g/dl (32.0-35.9); MEAN CELL VOLUME 95.1 fl (80-96); MEAN PLT VOLUME 8.6 fl (7.5-11.1); NEUTROPHILS 75.2 % (42.8-82.8); PLATELET COUNT 165 K/MM3 (134-434); RDW 15.9 % (11.9-15.9); WHITE BLOOD COUNT 7.1 K/mm3 (4.0-10.0)
[2017-03-27 21:25] LABS: INR 1.33 (0.82-1.09); PROTHROMBIN TIME (PATIENT) 14.7 SEC (9.98-11.88)
[2017-03-27 21:27] LABS: ALBUMIN 2.9 g/dl (3.4-5.0); ANION GAP 5 (8-16); BILIRUBIN,TOTAL 0.8 mg/dL (0.2-1.0); CALCIUM 9.2 mg/dL (8.5-10.1); CO2 33 mmol/L (21-32); CREATININE 1.3 mg/dL (0.7-1.3); GLUCOSE,RANDOM 146 mg/dL (74-106); MAGNESIUM 2.2 mg/dL (1.8-2.4); SGOT/AST 17 U/L (15-37); SGPT/ALT 20 U/L (12-78); TOT PROT 6.8 g/dl (6.4-8.2)
[2017-03-27 21:29] LABS: ALK PHOS 70 U/L (45-117); TROPONIN I 0.22 ng/ml (0.00-0.05)
[2017-03-28] MEDS ORDERED: ALBUTEROL SO4 2.5/IPRATROPIUM 0.5 INH SOL 3 ML VIAL.NEB. NEB PRN (04:29)
[2017-03-28] MEDS: metFORMIN HCL 500 MG TABLET (FP) PO SCH ×2 (06:11→16:54)
[2017-03-28] MEDS: INSULIN SLIDING SCALE (NOVOLOG) 1 VIAL SQ SCH ×4 (06:12→22:30)
[2017-03-28 08:22] LABS: BASOPHIL 0.4 % (0-2.0); EOSINOPHIL 1.4 % (0-4.5); MCH 31.8 pg (25.7-33.7); MCHC 32.9 g/dl (32.0-35.9); MEAN CELL VOLUME 96.7 fl (80-96); MEAN PLT VOLUME 8.4 fl (7.5-11.1); NEUTROPHILS 76.5 % (42.8-82.8); PLATELET COUNT 167 K/MM3 (134-434); RDW 16.3 % (11.9-15.9); WHITE BLOOD COUNT 6.3 K/mm3 (4.0-10.0)
[2017-03-28 08:37] LABS: ALBUMIN 2.8 g/dl (3.4-5.0); ALK PHOS 66 U/L (45-117); ANION GAP 6 (8-16); CALCIUM 8.4 mg/dL (8.5-10.1); CO2 32 mmol/L (21-32); CREATININE 1.3 mg/dL (0.7-1.3); GLUCOSE,RANDOM 166 mg/dL (74-106); SGOT/AST 16 U/L (15-37); SGPT/ALT 20 U/L (12-78); TOT PROT 6.7 g/dl (6.4-8.2)
--- NOTE | 2017-03-28 08:43 | PN ---
Progress Note, Physician Chief Complaint: SOB and bilateral LE edema, worsening over last 3 days History of Present Illness: 72M known to our group from last admission for Acute on chronic diastolic CHF. PMHx: chronic AF not on AC due to fall with liver laceration ([facility]), HTN, hypertensive heart dz with chronic diastolic CHF, hematuria now admitted again for 3-4 days of worsening POSADAS and b/l LE edema. BNP found to be markedly elevated, very hypertensive on presentation to ER. He denies palpitations, chest pain. Denies dietary indiscretion, says he has been taking all his medications. Has not yet followed up w/ his PMD Dr. Guillen since his recent admission. In ER, CXR showed increased PVC and LE Duplex negative for DVT. - Current Medication List Current Medications: Active Medications Albuterol/Ipratropium (Duoneb -) 1 amp NEB Q6H PRN PRN Reason: SHORT OF BREATH/WHEEZING Amlodipine Besylate (Norvasc -) 10 mg PO DAILY [facility] Aspirin (Asa -) 81 mg PO DAILY [facility] Atenolol (Tenormin -) 25 mg PO DAILY [facility] Citalopram Hydrobromide (Celexa -) 20 mg PO DAILY [facility] Clonidine (Catapres -) 0.2 mg PO BID [facility] Furosemide (Lasix Injection -) 40 mg IVPB DAILY [facility] Heparin Sodium (Porcine) (Heparin -) 5,000 unit SQ BID [facility] Insulin Aspart (Novolog Vial Sliding Scale -) 1 vial SQ ACHS [facility] PRN Reason: Protocol Last Admin: 03/28/17 06:12 Dose: 2 units Insulin Detemir (Levemir Vial) 24 units SQ DAILY [facility] Lisinopril (Prinivil) 5 mg PO DAILY [facility] Metformin HCl (Glucophage -) 500 mg PO BIDAC [facility] Last Admin: 03/28/17 06:11 Dose: 500 mg Tamsulosin HCl (Flomax -) 0.4 mg PO DAILY@0830 [facility] - Objective Vital Signs: Vital Signs Temperature 98.6 F 03/28/17 06:00 Pulse Rate 80 03/28/17 06:00 Respiratory Rate 21 03/28/17 06:00 Blood Pressure 160/92 03/28/17 06:00 O2 Sat by Pulse Oximetry (%) 96 03/27/17 23:30 Constitutional: Yes: No Distress Eyes: Yes: Conjunctiva Clear Cardiovascular: Yes: Regular Rate and Rhythm, JVD Respiratory: Yes: Other (bibasilar rales 1/3 up) Gastrointestinal: Yes: Soft, Abdomen, Obese Edema: Yes Edema: LLE: 2+, RLE: 2+ (ulcer on anterior aspect right garner) Peripheral Pulses WNL: Yes Neurological: Yes: Alert, Oriented ...Motor Strength: WNL Labs: CBC, BMP 03/28/17 05:55 INR, PTT INR 1.33 (0.82-1.09) H 03/27/17 20:43 Laboratory Tests 03/27/17 03/27/17 03/28/17 20:43 20:43 05:55 WBC 6.3 Hgb 12.3 Plt Count 167 Sodium 139 Potassium 5.0 BUN 51 H D Creatinine 1.3 Creat Clearance w eGFR 53.96 Random Glucose 146 H D Calcium 9.2 Magnesium 2.2 Total Bilirubin 0.8 AST 17 ALT 20 Alkaline Phosphatase 70 Creatine Kinase 33 L Troponin I 0.22 H D B-Natriuretic Peptide 4526.46 H - ....Imaging Chest X-ray: Image Reviewed EKG: Image Reviewed, Other (AF 86bpm, Poor R wave progression, NSST changes) Other: Other (Echo: 02/24/17-- Grossly nl LV function. RV function grossly normal. Mild to moderate MR. Mild AR. Mildly dilated ascending aorta. Severe LA dilatation) Problem List - Problems (1) Afib Code(s): I48.91 - UNSPECIFIED ATRIAL FIBRILLATION Qualifiers: Atrial fibrillation type: permanent Qualified Code(s): I48.2 - Chronic atrial fibrillation (2) Acute on chronic diastolic (congestive) heart failure Code(s): I50.33 - ACUTE ON CHRONIC DIASTOLIC (CONGESTIVE) HEART FAILURE (3) Diabetes Code(s): E11.9 - TYPE 2 DIABETES MELLITUS WITHOUT COMPLICATIONS Qualifiers: Diabetes mellitus type: type 2 Diabetes mellitus complication status: with circulatory complication (4) Dyspnea Code(s): R06.00 - DYSPNEA, UNSPECIFIED Qualifiers: Dyspnea type: dyspnea on exertion Qualified Code(s): R06.09 - Other forms of dyspnea (5) Aortic aneurysm Code(s): I71.9 - AORTIC ANEURYSM OF UNSPECIFIED SITE, WITHOUT RUPTURE Qualifiers: Aortic location: thoracic aorta Presence of rupture: without rupture Qualified Code(s): I71.2 - Thoracic aortic aneurysm, without rupture (6) Falls Code(s): W19.XXXA - UNSPECIFIED FALL, INITIAL ENCOUNTER Qualifiers: Encounter type: subsequent encounter Qualified Code(s): W19.XXXD - Unspecified fall, subsequent encounter (7) Liver lacerat unspcf cls Code(s): S36.113A - LACERATION OF LIVER, UNSPECIFIED DEGREE, INITIAL ENCOUNTER Qualifiers: Encounter type: subsequent encounter Qualified Code(s): S36.113D - Laceration of liver, unspecified degree, subsequent encounter Assessment/Plan IMP: Acute on chronic diastolic CHF secondary to uncontrolled chronic HTN Hypertensive heart disease Permanent AF History of falls, with resultant liver laceration several months ago Small thoracic aortic aneurysm REC: 1.Acute on chronic diastolic CHF: -Likely precipitated by uncontrolled HTN -Will switch Atenolol to Toprol XL and titrate as heart rate and BP allow -Continue Telemetry -IV Lasix w/ daily SMA-7 -Continue ORLIN-I -Cycle cardiac enzymes -Echo recently done, does not need to be repeated unless cardiac enzymes show clear uptrend 2. Hypertensive heart dz: -w/ LA enlargement and permanent AF -Continue ORLIN-I, B-Dm 3. Permanent AF: -Will switch Atenolol to Toprol. -Continue ASA daily -Hold AC given recent fall and liver lac 4. Fall: -Have requested discharge summary from [facility] this morning. Details of admission to be reviewed, and possible resumption of AC can be discussed based on review of records. 5. Thoracic aortic aneursym: -4.1cm with no sig AR -Can be followed with serial imaging (echo and outpatient CT) -Needs improved BP control, will switch Atenolol (typically a BID drug to Toprol for convenience of daily dosing and longer half life)
[2017-03-28 09:25] LABS: TROPONIN I 0.16 ng/ml (0.00-0.05)
[2017-03-28] MEDS: cloNIDine HCL 0.1 MG TABLET PO SCH ×2 (09:50→22:28)
[2017-03-28] MEDS: CITALOPRAM HYDROBROMIDE 20 MG TABLET (FP) PO SCH (09:50)
[2017-03-28] MEDS: amLODIPine BESYLATE 10 MG TABLET (FP) PO SCH (09:50)
[2017-03-28] MEDS: LISINOPRIL 5 MG TABLET (FP) PO SCH (09:50)
[2017-03-28] MEDS: HEPARIN NA (PORCINE) 5,000 UNITS/ML 1ML VIAL SQ SCH ×2 (09:50→22:29)
[2017-03-28] MEDS: ASPIRIN 81 MG CHEWABLE TABLETS PO SCH (09:50)
[2017-03-28] MEDS: TAMSULOSIN HCL 0.4 MG CAP.ER.24H (FP) PO SCH (09:50)
[2017-03-28] MEDS: INSULIN DETEMIR 100 UNITS/ML MDV SQ SCH (09:51)
[2017-03-28] MEDS: FUROSEMIDE 40 MG/4 ML INJECTABLE VIAL IVPB SCH (09:51)
[2017-03-28] MEDS ORDERED: ATENOLOL 25 MG TABLET (FP) PO SCH (10:00)
[2017-03-28] MEDS ORDERED: METOPROLOL SUCCINATE 25 MG TAB.SR.24H (FP) PO SCH (10:00)
--- NOTE | 2017-03-28 13:34 | HP ---
Admitting History and Physical - Past Medical History Cardiovascular: Yes: AFIB, CHF, HTN, Hyperlipdemia - Smoking History Smoking history: Never smoked Have you smoked in the past 12 months: No - Alcohol/Substance Use Hx Alcohol Use: Yes (SOCIAL) - Social History ADL: Independent History of Recent Travel: No Home Medications - Allergies Allergies/Adverse Reactions: Allergies Allergy/AdvReac Type Severity Reaction Status Date / Time codeine Allergy Verified 03/27/17 18:05 iodine Allergy Verified 03/27/17 18:05 - Home Medications Home Medications: Ambulatory Orders Amlodipine Besylate 10 mg PO DAILY 02/23/17 Atenolol [Tenormin -] 25 mg PO DAILY 02/23/17 Citalopram Hydrobromide [Celexa -] 20 mg PO DAILY 02/23/17 Clonidine HCl 0.2 mg PO BID 02/23/17 Furosemide [Lasix] 40 mg PO DAILY 02/23/17 Insulin Glargine,Hum.rec.anlog [Lantus Solostar PEN -] 24 units SQ DAILY Ipratropium/Albuterol Sulfate [Iprat-Albut 0.5-3(2.5) mg/3 ml] 3 ml IH Q6H PRN 02/23/17 Metformin HCl 500 mg PO BID 02/23/17 Tamsulosin HCl [Flomax] 0.4 mg PO DAILY 02/23/17 Aspirin [ASA -] 81 mg PO DAILY #30 tab.chew 02/28/17 Furosemide [Lasix -] 40 mg PO DAILY #30 tablet 02/28/17 Lisinopril [Prinivil] 5 mg PO DAILY #30 tablet 02/28/17 Physical Examination Vital Signs: Vital Signs Temperature 98.8 F 03/28/17 08:45 Pulse Rate 93 H 03/28/17 08:45 Respiratory Rate 22 03/28/17 08:45 Blood Pressure 162/97 03/28/17 08:45 O2 Sat by Pulse Oximetry (%) 96 03/27/17 23:30 Labs: CBC, BMP 03/28/17 05:55 03/28/17 05:55
[2017-03-28] MEDS ORDERED: LISINOPRIL 5 MG TABLET (FP) PO ONE (18:15)
[2017-03-29] MEDS: INSULIN SLIDING SCALE (NOVOLOG) 1 VIAL SQ SCH ×4 (06:05→21:37)
[2017-03-29] MEDS: metFORMIN HCL 500 MG TABLET (FP) PO SCH ×2 (06:05→17:30)
--- NOTE | 2017-03-29 09:05 | PN ---
Progress Note, Physician Chief Complaint: feels fine TELE: reviewed. AF, controlled. Pauses intermittently but none > 3 seconds. Outside records received, read, charted separately. Patient has history of multiple falls- at least 10 by documentation. Last fall was 12/25 Resulted in intraabdominal bleed requiring multiple blood transfusions and pressor support. CT scans on 01/09 and 01/11 showed sub-hepatic hematoma, intra-abdominal bleed. Visceral angio on 01/09 showed no source of bleed. Subsequently transferred to [facility]. On 01/15 developed respiratory distress due to CHF with wheezing likely due to HTN. He required labetalol gtts. According to records, he subsequently developed "bronchospasm" on Metoprolol although this occurred around the same time of his acute CHF decompensation so it is difficult to ascertain if the wheezing was truly due to Metoprolol. MRI abdomen on 01/17/17 no hepatic laceration or mass, evolution of large hematoma in the greater omentum and hemoperitoneum. History of Present Illness: hypertensive again last night requiring additional Lisinopril. Spoke to yesterday: patient has not had an ischemic evaluation in the last 3 years. - Current Medication List Current Medications: Active Medications Albuterol/Ipratropium (Duoneb -) 1 amp NEB Q6H PRN PRN Reason: SHORT OF BREATH/WHEEZING Amlodipine Besylate (Norvasc -) 10 mg PO DAILY [facility] Last Admin: 03/28/17 09:50 Dose: 10 mg Aspirin (Asa -) 81 mg PO DAILY [facility] Last Admin: 03/28/17 09:50 Dose: 81 mg Citalopram Hydrobromide (Celexa -) 20 mg PO DAILY [facility] Last Admin: 03/28/17 09:50 Dose: 20 mg Clonidine (Catapres -) 0.2 mg PO BID [facility] Last Admin: 03/28/17 22:28 Dose: 0.2 mg Furosemide (Lasix Injection -) 40 mg IVPB DAILY [facility] Last Admin: 03/28/17 09:51 Dose: 40 mg Heparin Sodium (Porcine) (Heparin -) 5,000 unit SQ BID [facility] Last Admin: 03/28/17 22:29 Dose: 5,000 unit Insulin Aspart (Novolog Vial Sliding Scale -) 1 vial SQ ACHS [facility] PRN Reason: Protocol Last Admin: 03/29/17 06:05 Dose: Not Given Insulin Detemir (Levemir Vial) 24 units SQ DAILY [facility] Last Admin: 03/28/17 09:51 Dose: 24 units Lisinopril (Prinivil) 5 mg PO DAILY [facility] Last Admin: 03/28/17 09:50 Dose: 5 mg Metformin HCl (Glucophage -) 500 mg PO BIDAC [facility] Last Admin: 03/29/17 06:05 Dose: 500 mg Metoprolol Succinate (Toprol Xl -) 25 mg PO DAILY [facility] Last Admin: 03/28/17 09:50 Dose: 25 mg Tamsulosin HCl (Flomax -) 0.4 mg PO DAILY@0830 [facility] Last Admin: 03/28/17 09:50 Dose: 0.4 mg - Objective Vital Signs: Vital Signs Temperature 97.8 F 03/29/17 06:33 Pulse Rate 80 03/29/17 06:33 Respiratory Rate 18 03/29/17 06:33 Blood Pressure 148/98 03/29/17 06:33 O2 Sat by Pulse Oximetry (%) 95 03/28/17 21:00 Constitutional: Yes: Calm Eyes: Yes: Conjunctiva Clear Cardiovascular: Yes: Regular Rate and Rhythm Respiratory: Yes: Other (scattered rhonchi, no rales. No active wheezing.) Gastrointestinal: Yes: Soft, Abdomen, Obese Edema: Yes Edema: LLE: 2+, RLE: 2+ Neurological: Yes: Alert, Oriented ...Motor Strength: WNL Labs: CBC, BMP 03/28/17 05:55 03/28/17 05:55 INR, PTT INR 1.33 (0.82-1.09) H 03/27/17 20:43 - ....Imaging EKG: Image Reviewed Problem List - Problems (1) Afib Code(s): I48.91 - UNSPECIFIED ATRIAL FIBRILLATION Qualifiers: Atrial fibrillation type: permanent Qualified Code(s): I48.2 - Chronic atrial fibrillation (2) Acute on chronic diastolic (congestive) heart failure Code(s): I50.33 - ACUTE ON CHRONIC DIASTOLIC (CONGESTIVE) HEART FAILURE (3) Diabetes Code(s): E11.9 - TYPE 2 DIABETES MELLITUS WITHOUT COMPLICATIONS Qualifiers: Diabetes mellitus type: type 2 Diabetes mellitus complication status: with circulatory complication (4) Dyspnea Code(s): R06.00 - DYSPNEA, UNSPECIFIED Qualifiers: Dyspnea type: dyspnea on exertion Qualified Code(s): R06.09 - Other forms of dyspnea (5) Aortic aneurysm Code(s): I71.9 - AORTIC ANEURYSM OF UNSPECIFIED SITE, WITHOUT RUPTURE Qualifiers: Aortic location: thoracic aorta Presence of rupture: without rupture Qualified Code(s): I71.2 - Thoracic aortic aneurysm, without rupture (6) Falls Code(s): W19.XXXA - UNSPECIFIED FALL, INITIAL ENCOUNTER Qualifiers: Encounter type: subsequent encounter Qualified Code(s): W19.XXXD - Unspecified fall, subsequent encounter (7) Liver lacerat unspcf cls Code(s): S36.113A - LACERATION OF LIVER, UNSPECIFIED DEGREE, INITIAL ENCOUNTER Qualifiers: Encounter type: subsequent encounter Qualified Code(s): S36.113D - Laceration of liver, unspecified degree, subsequent encounter Assessment/Plan IMP: Acute on chronic diastolic CHF secondary to uncontrolled chronic HTN Hypertensive heart disease Permanent AF History of falls, with resultant intra-abdominal bleed several months ago requiring multiple transfusions and pressor support Small thoracic aortic aneurysm REC: 1.Acute on chronic diastolic CHF: -Likely precipitated by uncontrolled HTN -Equivocal history of bronchospasm on metoprolol (may have been wheezing due to decompensated CHF). Has tolerated Atenolol. Will switch back to Atenolol with BID dosing for additional blood pressure control in evenings. -Continue Telemetry -IV Lasix w/ daily SMA-7 -Continue ORLIN-I, titrate if BP requires and creatinine stable. -Echo recently done here, normal LV function. 2. Hypertensive heart dz: -w/ LA enlargement and permanent AF -Continue ORLIN-I, B-Dm. Will change Atenolol to BID dosing. 3. Permanent AF: -See above. -Continue ASA daily -Hold AC given falls history and severe recent intra-abdominal bleed. Risks of full AC>>benefits after review of records. 4. Fall: -Extensive falls history documented in outside hospital records, charted separately. 5. Thoracic aortic aneursym: -4.1cm with no sig AR -Can be followed with serial imaging (echo and outpatient CT) -Needs improved BP control, will switch Atenolol (typically a BID drug to Toprol for convenience of daily dosing and longer half life)
[2017-03-29 10:46] LABS: ANION GAP 6 (8-16); CALCIUM 9.1 mg/dL (8.5-10.1); CO2 32 mmol/L (21-32); CREATININE 1.2 mg/dL (0.7-1.3); GLUCOSE,RANDOM 134 mg/dL (74-106); MAGNESIUM 2.3 mg/dL (1.8-2.4)
[2017-03-29] MEDS: ASPIRIN 81 MG CHEWABLE TABLETS PO SCH (11:08)
[2017-03-29] MEDS: cloNIDine HCL 0.1 MG TABLET PO SCH ×2 (11:08→21:37)
[2017-03-29] MEDS: TAMSULOSIN HCL 0.4 MG CAP.ER.24H (FP) PO SCH (11:08)
[2017-03-29] MEDS: amLODIPine BESYLATE 10 MG TABLET (FP) PO SCH (11:09)
[2017-03-29] MEDS: FUROSEMIDE 40 MG/4 ML INJECTABLE VIAL IVPB SCH (11:09)
[2017-03-29] MEDS: LISINOPRIL 5 MG TABLET (FP) PO SCH (11:09)
[2017-03-29] MEDS: HEPARIN NA (PORCINE) 5,000 UNITS/ML 1ML VIAL SQ SCH ×2 (11:09→21:38)
[2017-03-29] MEDS: INSULIN DETEMIR 100 UNITS/ML MDV SQ SCH (11:09)
[2017-03-29] MEDS: CITALOPRAM HYDROBROMIDE 20 MG TABLET (FP) PO SCH (11:09)
[2017-03-29] MEDS: ATENOLOL 25 MG TABLET (FP) PO SCH ×2 (11:10→21:37)
--- NOTE | 2017-03-29 14:57 | EKG ---
Test Reason : Blood Pressure : / mmHG Vent. Rate : 086 BPM Atrial Rate : 093 BPM P-R Int : 000 ms QRS Dur : 080 ms QT Int : 346 ms P-R-T Axes : 000 014 -53 degrees QTc Int : 414 ms ATRIAL FIBRILLATION LOW VOLTAGE QRS CANNOT RULE OUT ANTERIOR INFARCT (CITED ON OR BEFORE 23-FEB-2017) ABNORMAL ECG WHEN COMPARED WITH ECG OF 23-FEB-2017 14:10, NO SIGNIFICANT CHANGE WAS FOUND Confirmed by CHELA RUTLEDGE MD ([id number]) on 03/29/2017 2:56:34 PM Referred By: Confirmed By:CHELA RUTLEDGE MD
[2017-03-29] MEDS ORDERED: INSULIN (NOVOLOG) ASPART 100 UNITS/ML 10ML VIAL ONE ×2 (17:27→21:34)
--- NOTE | 2017-03-29 19:13 | PN ---
Progress Note, Physician - Current Medication List Current Medications: Active Medications Albuterol/Ipratropium (Duoneb -) 1 amp NEB Q6H PRN PRN Reason: SHORT OF BREATH/WHEEZING Amlodipine Besylate (Norvasc -) 10 mg PO DAILY [facility] Last Admin: 03/29/17 11:09 Dose: 10 mg Aspirin (Asa -) 81 mg PO DAILY [facility] Last Admin: 03/29/17 11:08 Dose: 81 mg Atenolol (Tenormin -) 25 mg PO BID [facility] Last Admin: 03/29/17 11:10 Dose: 25 mg Citalopram Hydrobromide (Celexa -) 20 mg PO DAILY [facility] Last Admin: 03/29/17 11:09 Dose: 20 mg Clonidine (Catapres -) 0.2 mg PO BID [facility] Last Admin: 03/29/17 11:08 Dose: 0.2 mg Furosemide (Lasix Injection -) 40 mg IVPB DAILY [facility] Last Admin: 03/29/17 11:09 Dose: 40 mg Heparin Sodium (Porcine) (Heparin -) 5,000 unit SQ BID [facility] Last Admin: 03/29/17 11:09 Dose: 5,000 unit Insulin Aspart (Novolog Vial Sliding Scale -) 1 vial SQ ACHS [facility] PRN Reason: Protocol Last Admin: 03/29/17 17:30 Dose: 2 units Insulin Detemir (Levemir Vial) 24 units SQ DAILY [facility] Last Admin: 03/29/17 11:09 Dose: 24 units Lisinopril (Prinivil) 5 mg PO DAILY [facility] Last Admin: 03/29/17 11:09 Dose: 5 mg Metformin HCl (Glucophage -) 500 mg PO BIDAC [facility] Last Admin: 03/29/17 17:30 Dose: 500 mg Tamsulosin HCl (Flomax -) 0.4 mg PO DAILY@0830 [facility] Last Admin: 03/29/17 11:08 Dose: 0.4 mg - Objective Vital Signs: Vital Signs Temperature 97.5 F L 03/29/17 17:00 Pulse Rate 66 03/29/17 17:00 Respiratory Rate 20 03/29/17 17:00 Blood Pressure 129/81 03/29/17 17:00 O2 Sat by Pulse Oximetry (%) 95 03/29/17 09:00 Labs: CBC, BMP 03/28/17 05:55 03/29/17 09:50 INR, PTT INR 1.33 (0.82-1.09) H 03/27/17 20:43
[2017-03-30] MEDS: metFORMIN HCL 500 MG TABLET (FP) PO SCH ×2 (06:18→17:50)
[2017-03-30] MEDS: INSULIN SLIDING SCALE (NOVOLOG) 1 VIAL SQ SCH ×4 (06:21→21:24)
--- NOTE | 2017-03-30 08:42 | PN ---
Progress Note, Physician Chief Complaint: feels better still edematous, but improving History of Present Illness: blood pressure improving. Radiology informs me that they no longer do Renal Artery Duplex studies on inpatients. TELE: Well controlled AF, no pauses > 3 seconds. Few VPCs, one couplet. Artifact - Current Medication List Current Medications: Active Medications Albuterol/Ipratropium (Duoneb -) 1 amp NEB Q6H PRN PRN Reason: SHORT OF BREATH/WHEEZING Amlodipine Besylate (Norvasc -) 10 mg PO DAILY [facility] Last Admin: 03/29/17 11:09 Dose: 10 mg Aspirin (Asa -) 81 mg PO DAILY [facility] Last Admin: 03/29/17 11:08 Dose: 81 mg Atenolol (Tenormin -) 25 mg PO BID [facility] Last Admin: 03/29/17 21:37 Dose: 25 mg Citalopram Hydrobromide (Celexa -) 20 mg PO DAILY [facility] Last Admin: 03/29/17 11:09 Dose: 20 mg Clonidine (Catapres -) 0.2 mg PO BID [facility] Last Admin: 03/29/17 21:37 Dose: 0.2 mg Furosemide (Lasix Injection -) 40 mg IVPB DAILY [facility] Last Admin: 03/29/17 11:09 Dose: 40 mg Heparin Sodium (Porcine) (Heparin -) 5,000 unit SQ BID [facility] Last Admin: 03/29/17 21:38 Dose: 5,000 unit Insulin Aspart (Novolog Vial Sliding Scale -) 1 vial SQ ACHS [facility] PRN Reason: Protocol Last Admin: 03/30/17 06:21 Dose: Not Given Insulin Detemir (Levemir Vial) 24 units SQ DAILY [facility] Last Admin: 03/29/17 11:09 Dose: 24 units Lisinopril (Prinivil) 5 mg PO DAILY [facility] Last Admin: 03/29/17 11:09 Dose: 5 mg Metformin HCl (Glucophage -) 500 mg PO BIDAC [facility] Last Admin: 03/30/17 06:18 Dose: 500 mg Tamsulosin HCl (Flomax -) 0.4 mg PO DAILY@0830 [facility] Last Admin: 03/29/17 11:08 Dose: 0.4 mg - Objective Vital Signs: Vital Signs Temperature 98.2 F 03/30/17 08:35 Pulse Rate 74 03/30/17 08:35 Respiratory Rate 16 03/30/17 08:35 Blood Pressure 132/88 03/30/17 08:35 O2 Sat by Pulse Oximetry (%) 96 03/30/17 06:00 Constitutional: Yes: No Distress Eyes: Yes: Conjunctiva Clear Cardiovascular: Yes: Pulse Irregular Respiratory: Yes: Other (decreased breath sounds at bases. No wheezing.) Gastrointestinal: Yes: Soft, Abdomen, Obese Edema: Yes Edema: LLE: 2+, RLE: 2+ Neurological: Yes: Alert, Oriented Labs: CBC, BMP 03/28/17 05:55 03/29/17 09:50 INR, PTT INR 1.33 (0.82-1.09) H 03/27/17 20:43 - ....Imaging EKG: Image Reviewed Problem List - Problems (1) Afib Code(s): I48.91 - UNSPECIFIED ATRIAL FIBRILLATION Qualifiers: Atrial fibrillation type: permanent Qualified Code(s): I48.2 - Chronic atrial fibrillation (2) Acute on chronic diastolic (congestive) heart failure Code(s): I50.33 - ACUTE ON CHRONIC DIASTOLIC (CONGESTIVE) HEART FAILURE (3) Diabetes Code(s): E11.9 - TYPE 2 DIABETES MELLITUS WITHOUT COMPLICATIONS Qualifiers: Diabetes mellitus type: type 2 Diabetes mellitus complication status: with circulatory complication (4) Dyspnea Code(s): R06.00 - DYSPNEA, UNSPECIFIED Qualifiers: Dyspnea type: dyspnea on exertion Qualified Code(s): R06.09 - Other forms of dyspnea (5) Aortic aneurysm Code(s): I71.9 - AORTIC ANEURYSM OF UNSPECIFIED SITE, WITHOUT RUPTURE Qualifiers: Aortic location: thoracic aorta Presence of rupture: without rupture Qualified Code(s): I71.2 - Thoracic aortic aneurysm, without rupture (6) Falls Code(s): W19.XXXA - UNSPECIFIED FALL, INITIAL ENCOUNTER Qualifiers: Encounter type: subsequent encounter Qualified Code(s): W19.XXXD - Unspecified fall, subsequent encounter (7) [facility] Code(s): S36.113A - LACERATION OF LIVER, UNSPECIFIED DEGREE, INITIAL ENCOUNTER Qualifiers: Encounter type: subsequent encounter Qualified Code(s): S36.113D - Laceration of liver, unspecified degree, subsequent encounter Assessment/Plan IMP: Acute on chronic diastolic CHF secondary to uncontrolled chronic HTN Hypertensive heart disease Permanent AF History of falls, with resultant intra-abdominal bleed several months ago requiring multiple transfusions and pressor support Small thoracic aortic aneurysm REC: 1.Acute on chronic diastolic CHF: -Likely precipitated by uncontrolled HTN -Equivocal history of bronchospasm on metoprolol (may have been wheezing due to decompensated CHF). Has tolerated Atenolol. -Continue Atenolol 25mg BID as rates are well controlled and BP improving. -Continue Telemetry while on IV Lasix -Continue ORLIN-I, titrate if BP requires and creatinine stable. Renal function improving with diuresis. -Echo recently done here, normal LV function. -Renal artery duplex. -Stress MIBI when euvolemic. 2. Hypertensive heart dz: -w/ LA enlargement and permanent AF -Continue ORLIN-I, B-Dm. Will change Atenolol to BID dosing. 3. Permanent AF: -See above. -Continue ASA daily -Hold AC given falls history and severe recent intra-abdominal bleed. Risks of full AC>>benefits after review of records. 4. Fall: -Extensive falls history documented in outside hospital records, charted separately. 5. Thoracic aortic aneursym: -4.1cm with no sig AR -Can be followed with serial imaging (echo and outpatient CT) -Continue Atenolol
[2017-03-30] MEDS: HEPARIN NA (PORCINE) 5,000 UNITS/ML 1ML VIAL SQ SCH ×2 (08:59→21:20)
[2017-03-30] MEDS: ATENOLOL 25 MG TABLET (FP) PO SCH ×2 (08:59→21:19)
[2017-03-30] MEDS: cloNIDine HCL 0.1 MG TABLET PO SCH ×2 (08:59→21:19)
[2017-03-30] MEDS: CITALOPRAM HYDROBROMIDE 20 MG TABLET (FP) PO SCH (08:59)
[2017-03-30] MEDS: FUROSEMIDE 40 MG/4 ML INJECTABLE VIAL IVPB SCH (08:59)
[2017-03-30] MEDS: ASPIRIN 81 MG CHEWABLE TABLETS PO SCH (08:59)
[2017-03-30] MEDS: TAMSULOSIN HCL 0.4 MG CAP.ER.24H (FP) PO SCH (09:00)
[2017-03-30] MEDS: amLODIPine BESYLATE 10 MG TABLET (FP) PO SCH (09:00)
[2017-03-30] MEDS: LISINOPRIL 5 MG TABLET (FP) PO SCH (09:00)
[2017-03-30] MEDS: INSULIN DETEMIR 100 UNITS/ML MDV SQ SCH (11:27)
[2017-03-30] MEDS ORDERED: INSULIN (NOVOLOG) ASPART 100 UNITS/ML 10ML VIAL ONE (21:28)
--- NOTE | 2017-03-30 21:56 | PN ---
Progress Note, Physician - Current Medication List Current Medications: Active Medications Albuterol/Ipratropium (Duoneb -) 1 amp NEB Q6H PRN PRN Reason: SHORT OF BREATH/WHEEZING Amlodipine Besylate (Norvasc -) 10 mg PO DAILY [facility] Last Admin: 03/30/17 09:00 Dose: 10 mg Aspirin (Asa -) 81 mg PO DAILY [facility] Last Admin: 03/30/17 08:59 Dose: 81 mg Atenolol (Tenormin -) 25 mg PO BID [facility] Last Admin: 03/30/17 21:19 Dose: 25 mg Citalopram Hydrobromide (Celexa -) 20 mg PO DAILY [facility] Last Admin: 03/30/17 08:59 Dose: 20 mg Clonidine (Catapres -) 0.2 mg PO BID [facility] Last Admin: 03/30/17 21:19 Dose: 0.2 mg Furosemide (Lasix Injection -) 40 mg IVPB DAILY [facility] Last Admin: 03/30/17 08:59 Dose: 40 mg Heparin Sodium (Porcine) (Heparin -) 5,000 unit SQ BID [facility] Last Admin: 03/30/17 21:20 Dose: 5,000 unit Insulin Aspart (Novolog Vial Sliding Scale -) 1 vial SQ ACHS [facility] PRN Reason: Protocol Last Admin: 03/30/17 21:24 Dose: 4 units Insulin Detemir (Levemir Vial) 24 units SQ DAILY [facility] Last Admin: 03/30/17 11:27 Dose: 24 units Lisinopril (Prinivil) 5 mg PO DAILY [facility] Last Admin: 03/30/17 09:00 Dose: 5 mg Metformin HCl (Glucophage -) 500 mg PO BIDAC [facility] Last Admin: 03/30/17 17:50 Dose: 500 mg Tamsulosin HCl (Flomax -) 0.4 mg PO DAILY@0830 [facility] Last Admin: 03/30/17 09:00 Dose: 0.4 mg - Objective Vital Signs: Vital Signs Temperature 97.8 F 03/30/17 17:00 Pulse Rate 72 03/30/17 17:00 Respiratory Rate 20 03/30/17 17:00 Blood Pressure 146/95 03/30/17 17:00 O2 Sat by Pulse Oximetry (%) 95 03/30/17 09:00 Labs: CBC, BMP 03/28/17 05:55 03/29/17 09:50 INR, PTT INR 1.33 (0.82-1.09) H 03/27/17 20:43
[2017-03-31] MEDS: metFORMIN HCL 500 MG TABLET (FP) PO SCH ×2 (06:49→17:25)
[2017-03-31] MEDS: INSULIN SLIDING SCALE (NOVOLOG) 1 VIAL SQ SCH ×4 (06:49→21:26)
[2017-03-31 08:42] LABS: ANION GAP 7 (8-16); CALCIUM 8.7 mg/dL (8.5-10.1); CO2 32 mmol/L (21-32); CREATININE 1.3 mg/dL (0.7-1.3); GLUCOSE,RANDOM 120 mg/dL (74-106)
--- NOTE | 2017-03-31 09:04 | PN ---
Progress Note, Physician Chief Complaint: comfortable in chair Denies SOB TELE: Controlled AF with pauses during sleep < 3 seconds History of Present Illness: BP trending lower - Current Medication List Current Medications: Active Medications Albuterol/Ipratropium (Duoneb -) 1 amp NEB Q6H PRN PRN Reason: SHORT OF BREATH/WHEEZING Amlodipine Besylate (Norvasc -) 10 mg PO DAILY [facility] Last Admin: 03/30/17 09:00 Dose: 10 mg Aspirin (Asa -) 81 mg PO DAILY [facility] Last Admin: 03/30/17 08:59 Dose: 81 mg Atenolol (Tenormin -) 25 mg PO BID [facility] Last Admin: 03/30/17 21:19 Dose: 25 mg Citalopram Hydrobromide (Celexa -) 20 mg PO DAILY [facility] Last Admin: 03/30/17 08:59 Dose: 20 mg Clonidine (Catapres -) 0.2 mg PO BID [facility] Last Admin: 03/30/17 21:19 Dose: 0.2 mg Furosemide (Lasix Injection -) 40 mg IVPB DAILY [facility] Last Admin: 03/30/17 08:59 Dose: 40 mg Heparin Sodium (Porcine) (Heparin -) 5,000 unit SQ BID [facility] Last Admin: 03/30/17 21:20 Dose: 5,000 unit Insulin Aspart (Novolog Vial Sliding Scale -) 1 vial SQ ACHS [facility] PRN Reason: Protocol Last Admin: 03/31/17 06:49 Dose: Not Given Insulin Detemir (Levemir Vial) 24 units SQ DAILY [facility] Last Admin: 03/30/17 11:27 Dose: 24 units Lisinopril (Prinivil) 5 mg PO DAILY [facility] Last Admin: 03/30/17 09:00 Dose: 5 mg Metformin HCl (Glucophage -) 500 mg PO BIDAC [facility] Last Admin: 03/31/17 06:49 Dose: 500 mg Tamsulosin HCl (Flomax -) 0.4 mg PO DAILY@0830 [facility] Last Admin: 03/30/17 09:00 Dose: 0.4 mg - Objective Vital Signs: Vital Signs Temperature 98 F 03/31/17 08:05 Pulse Rate 64 03/31/17 08:05 Respiratory Rate 20 03/31/17 08:05 Blood Pressure 136/74 03/31/17 08:05 O2 Sat by Pulse Oximetry (%) 93 L 03/30/17 21:00 Constitutional: Yes: Calm Eyes: Yes: Conjunctiva Clear Cardiovascular: Yes: Pulse Irregular Respiratory: Yes: CTA Bilaterally Gastrointestinal: Yes: Soft, Abdomen, Obese Edema: Yes Edema: LLE: 2+, RLE: 2+ Neurological: Yes: Alert, Oriented Labs: CBC, BMP 03/28/17 05:55 03/31/17 07:40 INR, PTT INR 1.33 (0.82-1.09) H 03/27/17 20:43 Laboratory Tests 03/29/17 03/31/17 09:50 07:40 Sodium 138 Potassium 4.2 5.0 BUN 43 H 46 H Creatinine 1.2 1.3 Random Glucose 120 H Calcium 8.7 Magnesium 2.3 - ....Imaging EKG: Image Reviewed Problem List - Problems (1) Afib Code(s): I48.91 - UNSPECIFIED ATRIAL FIBRILLATION Qualifiers: Atrial fibrillation type: permanent Qualified Code(s): I48.2 - Chronic atrial fibrillation (2) Acute on chronic diastolic (congestive) heart failure Code(s): I50.33 - ACUTE ON CHRONIC DIASTOLIC (CONGESTIVE) HEART FAILURE (3) Diabetes Code(s): E11.9 - TYPE 2 DIABETES MELLITUS WITHOUT COMPLICATIONS Qualifiers: Diabetes mellitus type: type 2 Diabetes mellitus complication status: with circulatory complication (4) Dyspnea Code(s): R06.00 - DYSPNEA, UNSPECIFIED Qualifiers: Dyspnea type: dyspnea on exertion Qualified Code(s): R06.09 - Other forms of dyspnea (5) Aortic aneurysm Code(s): I71.9 - AORTIC ANEURYSM OF UNSPECIFIED SITE, WITHOUT RUPTURE Qualifiers: Aortic location: thoracic aorta Presence of rupture: without rupture Qualified Code(s): I71.2 - Thoracic aortic aneurysm, without rupture (6) Falls Code(s): W19.XXXA - UNSPECIFIED FALL, INITIAL ENCOUNTER Qualifiers: Encounter type: subsequent encounter Qualified Code(s): W19.XXXD - Unspecified fall, subsequent encounter (7) [facility] Code(s): S36.113A - LACERATION OF LIVER, UNSPECIFIED DEGREE, INITIAL ENCOUNTER Qualifiers: Encounter type: subsequent encounter Qualified Code(s): S36.113D - Laceration of liver, unspecified degree, subsequent encounter Assessment/Plan IMP: Acute on chronic diastolic CHF secondary to uncontrolled chronic HTN Hypertensive heart disease Permanent AF History of falls, with resultant intra-abdominal bleed several months ago requiring multiple transfusions and pressor support Small thoracic aortic aneurysm REC: 1.Acute on chronic diastolic CHF: -Likely precipitated by uncontrolled HTN -Equivocal history of bronchospasm on metoprolol (may have been wheezing due to decompensated CHF). Has tolerated Atenolol. -Continue Atenolol 25mg BID as rates are well controlled and BP improving. -Continue Telemetry while on IV Lasix -Continue ORLIN-I, titrate if BP requires and creatinine stable. Renal function improving with diuresis. -Echo recently done here, normal LV function. -Renal artery duplex as outpatient. -Stress MIBI when euvolemic, will plan for Monday 2. Hypertensive heart dz: -w/ LA enlargement and permanent AF -Continue ORLIN-I, B-Dm. Will change Atenolol to BID dosing. 3. Permanent AF: -See above. -Continue ASA daily -Hold AC given falls history and severe recent intra-abdominal bleed. Risks of full AC>>benefits after review of records. 4. Fall: -Extensive falls history documented in outside hospital records, charted separately. 5. Thoracic aortic aneursym: -4.1cm with no sig AR -Can be followed with serial imaging (echo and outpatient CT) -Continue Atenolol 6. Suspected RACHEL: -Outpatient sleep study
[2017-03-31] MEDS: amLODIPine BESYLATE 5 MG TABLET (FP) PO SCH (09:23)
[2017-03-31] MEDS: HEPARIN NA (PORCINE) 5,000 UNITS/ML 1ML VIAL SQ SCH ×2 (09:24→21:27)
[2017-03-31] MEDS: ATENOLOL 25 MG TABLET (FP) PO SCH ×2 (09:24→21:27)
[2017-03-31] MEDS: FUROSEMIDE 40 MG/4 ML INJECTABLE VIAL IVPB SCH (09:24)
[2017-03-31] MEDS: TAMSULOSIN HCL 0.4 MG CAP.ER.24H (FP) PO SCH (09:24)
[2017-03-31] MEDS: CITALOPRAM HYDROBROMIDE 20 MG TABLET (FP) PO SCH (09:24)
[2017-03-31] MEDS: ASPIRIN 81 MG CHEWABLE TABLETS PO SCH (09:24)
[2017-03-31] MEDS: LISINOPRIL 5 MG TABLET (FP) PO SCH (09:24)
[2017-03-31] MEDS: cloNIDine HCL 0.1 MG TABLET PO SCH ×2 (09:24→21:27)
[2017-03-31] MEDS: INSULIN DETEMIR 100 UNITS/ML MDV SQ SCH (11:08)
--- NOTE | 2017-03-31 21:56 | PN ---
Progress Note, Physician - Current Medication List Current Medications: Active Medications Albuterol/Ipratropium (Duoneb -) 1 amp NEB Q6H PRN PRN Reason: SHORT OF BREATH/WHEEZING Amlodipine Besylate (Norvasc -) 5 mg PO DAILY [facility] Last Admin: 03/31/17 09:23 Dose: 5 mg Aspirin (Asa -) 81 mg PO DAILY [facility] Last Admin: 03/31/17 09:24 Dose: 81 mg Atenolol (Tenormin -) 25 mg PO BID [facility] Last Admin: 03/31/17 21:27 Dose: 25 mg Citalopram Hydrobromide (Celexa -) 20 mg PO DAILY [facility] Last Admin: 03/31/17 09:24 Dose: 20 mg Clonidine (Catapres -) 0.2 mg PO BID [facility] Last Admin: 03/31/17 21:27 Dose: 0.2 mg Furosemide (Lasix Injection -) 40 mg IVPB DAILY [facility] Last Admin: 03/31/17 09:24 Dose: 40 mg Heparin Sodium (Porcine) (Heparin -) 5,000 unit SQ BID [facility] Last Admin: 03/31/17 21:27 Dose: 5,000 unit Insulin Aspart (Novolog Vial Sliding Scale -) 1 vial SQ [facility] PRN Reason: Protocol Last Admin: 03/31/17 21:26 Dose: Not Given Insulin Detemir (Levemir Vial) 24 units SQ DAILY [facility] Last Admin: 03/31/17 11:08 Dose: 24 units Lisinopril (Prinivil) 5 mg PO DAILY [facility] Last Admin: 03/31/17 09:24 Dose: 5 mg Metformin HCl (Glucophage -) 500 mg PO BIDAC [facility] Last Admin: 03/31/17 17:25 Dose: 500 mg Tamsulosin HCl (Flomax -) 0.4 mg PO DAILY@0830 [facility] Last Admin: 03/31/17 09:24 Dose: 0.4 mg - Objective Vital Signs: Vital Signs Temperature 97.7 F 03/31/17 18:00 Pulse Rate 69 03/31/17 18:00 Respiratory Rate 20 03/31/17 18:00 Blood Pressure 139/87 03/31/17 18:00 O2 Sat by Pulse Oximetry (%) 95 03/31/17 09:00 Labs: CBC, BMP 03/28/17 05:55 03/31/17 07:40 INR, PTT INR 1.33 (0.82-1.09) H 03/27/17 20:43
[2017-04-01] MEDS: INSULIN SLIDING SCALE (NOVOLOG) 1 VIAL SQ SCH ×4 (06:18→21:50)
[2017-04-01] MEDS: metFORMIN HCL 500 MG TABLET (FP) PO SCH ×2 (06:18→17:46)
[2017-04-01 07:58] LABS: ANION GAP 7 (8-16); CALCIUM 8.7 mg/dL (8.5-10.1); CO2 31 mmol/L (21-32); CREATININE 1.5 mg/dL (0.7-1.3); GLUCOSE,RANDOM 160 mg/dL (74-106); MAGNESIUM 2.3 mg/dL (1.8-2.4)
--- NOTE | 2017-04-01 08:48 | PN ---
Progress Note, Physician Chief Complaint: Feels fine TELE: AF controlled with pauses during sleep all < 3 seconds History of Present Illness: BUN and creat bumped. BP slightly low at times yesterday, Norvasc adjusted-- BP now improved to controlled baseline - Current Medication List Current Medications: Active Medications Albuterol/Ipratropium (Duoneb -) 1 amp NEB Q6H PRN PRN Reason: SHORT OF BREATH/WHEEZING Amlodipine Besylate (Norvasc -) 5 mg PO DAILY [facility] Last Admin: 03/31/17 09:23 Dose: 5 mg Aspirin (Asa -) 81 mg PO DAILY [facility] Last Admin: 03/31/17 09:24 Dose: 81 mg Atenolol (Tenormin -) 25 mg PO BID [facility] Last Admin: 03/31/17 21:27 Dose: 25 mg Citalopram Hydrobromide (Celexa -) 20 mg PO DAILY [facility] Last Admin: 03/31/17 09:24 Dose: 20 mg Clonidine (Catapres -) 0.2 mg PO BID [facility] Last Admin: 03/31/17 21:27 Dose: 0.2 mg Furosemide (Lasix Injection -) 40 mg IVPB DAILY [facility] Last Admin: 03/31/17 09:24 Dose: 40 mg Heparin Sodium (Porcine) (Heparin -) 5,000 unit SQ BID [facility] Last Admin: 03/31/17 21:27 Dose: 5,000 unit Insulin Aspart (Novolog Vial Sliding Scale -) 1 vial SQ ACHS [facility] PRN Reason: Protocol Last Admin: 04/01/17 06:18 Dose: 2 units Insulin Detemir (Levemir Vial) 24 units SQ DAILY [facility] Last Admin: 03/31/17 11:08 Dose: 24 units Lisinopril (Prinivil) 5 mg PO DAILY [facility] Last Admin: 03/31/17 09:24 Dose: 5 mg Metformin HCl (Glucophage -) 500 mg PO BIDAC [facility] Last Admin: 04/01/17 06:18 Dose: 500 mg Tamsulosin HCl (Flomax -) 0.4 mg PO DAILY@0830 [facility] Last Admin: 03/31/17 09:24 Dose: 0.4 mg - Objective Vital Signs: Vital Signs Temperature 97.7 F 04/01/17 06:00 Pulse Rate 66 04/01/17 06:00 Respiratory Rate 19 04/01/17 06:00 Blood Pressure 133/83 04/01/17 06:00 O2 Sat by Pulse Oximetry (%) 96 03/31/17 21:00 Constitutional: Yes: No Distress, Calm Eyes: Yes: Conjunctiva Clear HENT: Yes: Atraumatic Cardiovascular: Yes: Pulse Irregular Respiratory: Yes: CTA Bilaterally Gastrointestinal: Yes: Soft, Abdomen, Obese Edema: Yes Edema: LLE: 1+, RLE: 1+ Neurological: Yes: Alert Labs: CBC, BMP 03/28/17 05:55 04/01/17 05:20 INR, PTT INR 1.33 (0.82-1.09) H 03/27/17 20:43 Laboratory Tests 03/27/17 04/01/17 20:43 05:20 Sodium 138 Potassium 4.5 BUN 48 H Creatinine 1.5 H Magnesium 2.3 B-Natriuretic Peptide 4526.46 H 2366.88 H - ....Imaging EKG: Image Reviewed Problem List - Problems (1) Afib Code(s): I48.91 - UNSPECIFIED ATRIAL FIBRILLATION Qualifiers: Atrial fibrillation type: permanent Qualified Code(s): I48.2 - Chronic atrial fibrillation (2) Acute on chronic diastolic (congestive) heart failure Code(s): I50.33 - ACUTE ON CHRONIC DIASTOLIC (CONGESTIVE) HEART FAILURE (3) Diabetes Code(s): E11.9 - TYPE 2 DIABETES MELLITUS WITHOUT COMPLICATIONS Qualifiers: Diabetes mellitus type: type 2 Diabetes mellitus complication status: with circulatory complication (4) Dyspnea Code(s): R06.00 - DYSPNEA, UNSPECIFIED Qualifiers: Dyspnea type: dyspnea on exertion Qualified Code(s): R06.09 - Other forms of dyspnea (5) Aortic aneurysm Code(s): I71.9 - AORTIC ANEURYSM OF UNSPECIFIED SITE, WITHOUT RUPTURE Qualifiers: Aortic location: thoracic aorta Presence of rupture: without rupture Qualified Code(s): I71.2 - Thoracic aortic aneurysm, without rupture (6) Falls Code(s): W19.XXXA - UNSPECIFIED FALL, INITIAL ENCOUNTER Qualifiers: Encounter type: subsequent encounter Qualified Code(s): W19.XXXD - Unspecified fall, subsequent encounter (7) [facility] Code(s): S36.113A - LACERATION OF LIVER, UNSPECIFIED DEGREE, INITIAL ENCOUNTER Qualifiers: Encounter type: subsequent encounter Qualified Code(s): S36.113D - Laceration of liver, unspecified degree, subsequent encounter Assessment/Plan IMP: Acute on chronic diastolic CHF secondary to uncontrolled chronic HTN Hypertensive heart disease Permanent AF History of falls, with resultant intra-abdominal bleed several months ago requiring multiple transfusions and pressor support Small thoracic aortic aneurysm Acute on chronic CKD REC: 1.Acute on chronic diastolic CHF: -Likely precipitated by uncontrolled HTN -Equivocal history of bronchospasm on metoprolol (may have been wheezing due to decompensated CHF). Has tolerated Atenolol. -Continue Atenolol 25mg BID as rates are well controlled and BP improving. -Continue Telemetry -Continue ORLIN-I, in Lisinopril -Echo recently done here, normal LV function. -Renal artery duplex as outpatient. -Stress MIBI Monday 2. Hypertensive heart dz: -w/ LA enlargement and permanent AF -Continue ORLIN-I, B-Dm. Will change Atenolol to BID dosing. 3. Permanent AF: -See above. -Continue ASA daily -Hold AC given falls history and severe recent intra-abdominal bleed. Risks of full AC>>benefits after review of records. 4. Fall: -Extensive falls history documented in outside hospital records, charted separately. 5. Thoracic aortic aneursym: -4.1cm with no sig AR -Can be followed with serial imaging (echo and outpatient CT) -Continue Atenolol 6. Suspected RACHEL: -Outpatient sleep study 7. Acute on chronic CKD: -Creatinine bumped likely from diuresis -Will d/c IV Lasix and switch to PO, check daily BMP
[2017-04-01] MEDS: amLODIPine BESYLATE 5 MG TABLET (FP) PO SCH (10:18)
[2017-04-01] MEDS: cloNIDine HCL 0.1 MG TABLET PO SCH ×2 (10:18→21:42)
[2017-04-01] MEDS: ASPIRIN 81 MG CHEWABLE TABLETS PO SCH (10:18)
[2017-04-01] MEDS: CITALOPRAM HYDROBROMIDE 20 MG TABLET (FP) PO SCH (10:18)
[2017-04-01] MEDS: FUROSEMIDE 40 MG TABLET (FP) PO SCH (10:19)
[2017-04-01] MEDS: LISINOPRIL 5 MG TABLET (FP) PO SCH (10:19)
[2017-04-01] MEDS: HEPARIN NA (PORCINE) 5,000 UNITS/ML 1ML VIAL SQ SCH ×2 (10:19→21:42)
[2017-04-01] MEDS: TAMSULOSIN HCL 0.4 MG CAP.ER.24H (FP) PO SCH (10:19)
[2017-04-01] MEDS: ATENOLOL 25 MG TABLET (FP) PO SCH ×2 (10:19→21:42)
[2017-04-01] MEDS: INSULIN DETEMIR 100 UNITS/ML MDV SQ SCH (10:20)
--- NOTE | 2017-04-01 23:12 | PN ---
Progress Note, Physician - Current Medication List Current Medications: Active Medications Albuterol/Ipratropium (Duoneb -) 1 amp NEB Q6H PRN PRN Reason: SHORT OF BREATH/WHEEZING Amlodipine Besylate (Norvasc -) 5 mg PO DAILY [facility] Last Admin: 04/01/17 10:18 Dose: 5 mg Aspirin (Asa -) 81 mg PO DAILY [facility] Last Admin: 04/01/17 10:18 Dose: 81 mg Atenolol (Tenormin -) 25 mg PO BID [facility] Last Admin: 04/01/17 21:42 Dose: 25 mg Citalopram Hydrobromide (Celexa -) 20 mg PO DAILY [facility] Last Admin: 04/01/17 10:18 Dose: 20 mg Clonidine (Catapres -) 0.2 mg PO BID [facility] Last Admin: 04/01/17 21:42 Dose: 0.2 mg Furosemide (Lasix -) 60 mg PO DAILY [facility] Last Admin: 04/01/17 10:19 Dose: 60 mg Heparin Sodium (Porcine) (Heparin -) 5,000 unit SQ BID [facility] Last Admin: 04/01/17 21:42 Dose: 5,000 unit Insulin Aspart (Novolog Vial Sliding Scale -) 1 vial SQ [facility] PRN Reason: Protocol Last Admin: 04/01/17 21:50 Dose: 2 units Insulin Detemir (Levemir Vial) 24 units SQ DAILY [facility] Last Admin: 04/01/17 10:20 Dose: 24 units Lisinopril (Prinivil) 5 mg PO DAILY [facility] Last Admin: 04/01/17 10:19 Dose: 5 mg Metformin HCl (Glucophage -) 500 mg PO BIDAC [facility] Last Admin: 04/01/17 17:46 Dose: 500 mg Tamsulosin HCl (Flomax -) 0.4 mg PO DAILY@0830 [facility] Last Admin: 04/01/17 10:19 Dose: 0.4 mg - Objective Vital Signs: Vital Signs Temperature 97.5 F L 04/01/17 17:00 Pulse Rate 85 04/01/17 17:00 Respiratory Rate 20 04/01/17 17:00 Blood Pressure 150/94 04/01/17 17:00 O2 Sat by Pulse Oximetry (%) 97 04/01/17 10:00 Labs: CBC, BMP 03/28/17 05:55 04/01/17 05:20 INR, PTT INR 1.33 (0.82-1.09) H 03/27/17 20:43
[2017-04-02] MEDS: metFORMIN HCL 500 MG TABLET (FP) PO SCH ×2 (06:16→17:11)
[2017-04-02] MEDS: INSULIN SLIDING SCALE (NOVOLOG) 1 VIAL SQ SCH ×4 (06:17→21:08)
[2017-04-02 08:42] LABS: ANION GAP 6 (8-16); CALCIUM 8.6 mg/dL (8.5-10.1); CO2 32 mmol/L (21-32); CREATININE 1.4 mg/dL (0.7-1.3); GLUCOSE,RANDOM 100 mg/dL (74-106); MAGNESIUM 2.3 mg/dL (1.8-2.4)
--- NOTE | 2017-04-02 09:08 | PN ---
Progress Note, Physician Chief Complaint: sitting in chair, comfortable TELE: rate controlled AF w/ pauses in 2-2.5 second range mainly while asleep: not of clinical significance - Current Medication List Current Medications: Active Medications Amlodipine Besylate (Norvasc -) 5 mg PO DAILY [facility] Last Admin: 04/01/17 10:18 Dose: 5 mg Aspirin (Asa -) 81 mg PO DAILY [facility] Last Admin: 04/01/17 10:18 Dose: 81 mg Atenolol (Tenormin -) 25 mg PO BID [facility] Last Admin: 04/01/17 21:42 Dose: 25 mg Citalopram Hydrobromide (Celexa -) 20 mg PO DAILY [facility] Last Admin: 04/01/17 10:18 Dose: 20 mg Clonidine (Catapres -) 0.2 mg PO BID [facility] Last Admin: 04/01/17 21:42 Dose: 0.2 mg Furosemide (Lasix -) 60 mg PO DAILY [facility] Last Admin: 04/01/17 10:19 Dose: 60 mg Heparin Sodium (Porcine) (Heparin -) 5,000 unit SQ BID [facility] Last Admin: 04/01/17 21:42 Dose: 5,000 unit Insulin Aspart (Novolog Vial Sliding Scale -) 1 vial SQ [facility] PRN Reason: Protocol Last Admin: 04/02/17 06:17 Dose: Not Given Insulin Detemir (Levemir Vial) 24 units SQ DAILY [facility] Last Admin: 04/01/17 10:20 Dose: 24 units Lisinopril (Prinivil) 5 mg PO DAILY [facility] Last Admin: 04/01/17 10:19 Dose: 5 mg Metformin HCl (Glucophage -) 500 mg PO BIDAC [facility] Last Admin: 04/02/17 06:16 Dose: 500 mg Tamsulosin HCl (Flomax -) 0.4 mg PO DAILY@0830 [facility] Last Admin: 04/01/17 10:19 Dose: 0.4 mg - Objective Vital Signs: Vital Signs Temperature 97.8 F 04/02/17 06:00 Pulse Rate 70 04/02/17 06:00 Respiratory Rate 20 04/02/17 06:00 Blood Pressure 137/80 04/02/17 06:00 O2 Sat by Pulse Oximetry (%) 97 04/01/17 21:00 Constitutional: Yes: Calm Eyes: Yes: Conjunctiva Clear Cardiovascular: Yes: Pulse Irregular Respiratory: Yes: CTA Bilaterally Gastrointestinal: Yes: Soft, Abdomen, Obese Edema: Yes Edema: LLE: 1+, RLE: 1+ Neurological: Yes: Alert, Oriented ...Motor Strength: WNL Labs: CBC, BMP 03/28/17 05:55 04/02/17 05:50 INR, PTT INR 1.33 (0.82-1.09) H 03/27/17 20:43 Laboratory Tests 04/02/17 05:50 Sodium 137 Potassium 4.4 Magnesium 2.3 - ....Imaging EKG: Image Reviewed Problem List - Problems (1) Afib Code(s): I48.91 - UNSPECIFIED ATRIAL FIBRILLATION Qualifiers: Atrial fibrillation type: permanent Qualified Code(s): I48.2 - Chronic atrial fibrillation (2) Acute on chronic diastolic (congestive) heart failure Code(s): I50.33 - ACUTE ON CHRONIC DIASTOLIC (CONGESTIVE) HEART FAILURE (3) Diabetes Code(s): E11.9 - TYPE 2 DIABETES MELLITUS WITHOUT COMPLICATIONS Qualifiers: Diabetes mellitus type: type 2 Diabetes mellitus complication status: with circulatory complication (4) Dyspnea Code(s): R06.00 - DYSPNEA, UNSPECIFIED Qualifiers: Dyspnea type: dyspnea on exertion Qualified Code(s): R06.09 - Other forms of dyspnea (5) Aortic aneurysm Code(s): I71.9 - AORTIC ANEURYSM OF UNSPECIFIED SITE, WITHOUT RUPTURE Qualifiers: Aortic location: thoracic aorta Presence of rupture: without rupture Qualified Code(s): I71.2 - Thoracic aortic aneurysm, without rupture (6) Falls Code(s): W19.XXXA - UNSPECIFIED FALL, INITIAL ENCOUNTER Qualifiers: Encounter type: subsequent encounter Qualified Code(s): W19.XXXD - Unspecified fall, subsequent encounter (7) Liver lacerat [facility] Code(s): S36.113A - LACERATION OF LIVER, UNSPECIFIED DEGREE, INITIAL ENCOUNTER Qualifiers: Encounter type: subsequent encounter Qualified Code(s): S36.113D - Laceration of liver, unspecified degree, subsequent encounter Assessment/Plan Assessment/Plan IMP: Acute on chronic diastolic CHF secondary to uncontrolled chronic HTN Hypertensive heart disease Permanent AF History of falls, with resultant intra-abdominal bleed several months ago requiring multiple transfusions and pressor support Small thoracic aortic aneurysm Acute on chronic CKD REC: 1.Acute on chronic diastolic CHF: -Likely precipitated by uncontrolled HTN now controlled. -Equivocal history of bronchospasm on metoprolol (may have been wheezing due to decompensated CHF). Has tolerated Atenolol. -Continue Atenolol 25mg BID as rates are well controlled and BP improving. -Continue Telemetry -Continue ORLIN-I, in Lisinopril -Echo recently done here, normal LV function. -Renal artery duplex as outpatient. -Stress MIBI tomorrow 2. Hypertensive heart dz: -w/ LA enlargement and permanent AF -Continue ORLIN-I, B-Dm. Will change Atenolol to BID dosing. 3. Permanent AF: -See above. -Continue ASA daily -Hold AC given falls history and severe recent intra-abdominal bleed. Risks of full AC>>benefits after review of records. Have d/w patient and family () He does not want to take "blood thinners" anymore. 4. Fall: -Extensive falls history documented in outside hospital records, charted separately. 5. Thoracic aortic aneursym: -4.1cm with no sig AR -Can be followed with serial imaging (echo and outpatient CT) -Continue Atenolol 6. Suspected RACHEL: -Outpatient sleep study 7. Acute on chronic CKD: -Creatinine bumped after several days IV Lasix, now stable after switch to PO yesterday.
[2017-04-02] MEDS: LISINOPRIL 5 MG TABLET (FP) PO SCH (09:49)
[2017-04-02] MEDS: cloNIDine HCL 0.1 MG TABLET PO SCH ×2 (09:50→21:07)
[2017-04-02] MEDS: ASPIRIN 81 MG CHEWABLE TABLETS PO SCH (09:50)
[2017-04-02] MEDS: CITALOPRAM HYDROBROMIDE 20 MG TABLET (FP) PO SCH (09:50)
[2017-04-02] MEDS: ATENOLOL 25 MG TABLET (FP) PO SCH ×2 (09:50→21:07)
[2017-04-02] MEDS: amLODIPine BESYLATE 5 MG TABLET (FP) PO SCH (09:50)
[2017-04-02] MEDS: TAMSULOSIN HCL 0.4 MG CAP.ER.24H (FP) PO SCH (09:50)
[2017-04-02] MEDS: FUROSEMIDE 40 MG TABLET (FP) PO SCH (09:50)
[2017-04-02] MEDS: HEPARIN NA (PORCINE) 5,000 UNITS/ML 1ML VIAL SQ SCH ×2 (09:52→21:06)
[2017-04-02] MEDS: INSULIN DETEMIR 100 UNITS/ML MDV SQ SCH (09:52)
--- NOTE | 2017-04-02 22:03 | PN ---
Progress Note, Physician - Current Medication List Current Medications: Active Medications Amlodipine Besylate (Norvasc -) 5 mg PO DAILY [facility] Last Admin: 04/02/17 09:50 Dose: 5 mg Aspirin (Asa -) 81 mg PO DAILY [facility] Last Admin: 04/02/17 09:50 Dose: 81 mg Atenolol (Tenormin -) 25 mg PO BID [facility] Last Admin: 04/02/17 21:07 Dose: 25 mg Citalopram Hydrobromide (Celexa -) 20 mg PO DAILY [facility] Last Admin: 04/02/17 09:50 Dose: 20 mg Clonidine (Catapres -) 0.2 mg PO BID [facility] Last Admin: 04/02/17 21:07 Dose: 0.2 mg Furosemide (Lasix -) 60 mg PO DAILY [facility] Last Admin: 04/02/17 09:50 Dose: 60 mg Heparin Sodium (Porcine) (Heparin -) 5,000 unit SQ BID [facility] Last Admin: 04/02/17 21:06 Dose: 5,000 unit Insulin Aspart (Novolog Vial Sliding Scale -) 1 vial SQ [facility] PRN Reason: Protocol Last Admin: 04/02/17 21:08 Dose: 2 units Insulin Detemir (Levemir Vial) 24 units SQ DAILY [facility] Last Admin: 04/02/17 09:52 Dose: 24 units Lisinopril (Prinivil) 5 mg PO DAILY [facility] Last Admin: 04/02/17 09:49 Dose: 5 mg Metformin HCl (Glucophage -) 500 mg PO BIDAC [facility] Last Admin: 04/02/17 17:11 Dose: 500 mg Tamsulosin HCl (Flomax -) 0.4 mg PO DAILY@0830 [facility] Last Admin: 04/02/17 09:50 Dose: 0.4 mg - Objective Vital Signs: Vital Signs Temperature 97.7 F 04/02/17 20:24 Pulse Rate 78 04/02/17 20:24 Respiratory Rate 20 04/02/17 20:24 Blood Pressure 140/90 04/02/17 20:24 O2 Sat by Pulse Oximetry (%) 95 04/02/17 20:24 Labs: CBC, BMP 03/28/17 05:55 04/02/17 05:50 INR, PTT INR 1.33 (0.82-1.09) H 03/27/17 20:43
[2017-04-03] MEDS: INSULIN SLIDING SCALE (NOVOLOG) 1 VIAL SQ SCH ×4 (05:59→21:51)
[2017-04-03] MEDS: metFORMIN HCL 500 MG TABLET (FP) PO SCH ×2 (05:59→17:25)
[2017-04-03 07:09] LABS: BASOPHIL 0.7 % (0-2.0); EOSINOPHIL 1.7 % (0-4.5); MCH 31.9 pg (25.7-33.7); MCHC 33.4 g/dl (32.0-35.9); MEAN CELL VOLUME 95.5 fl (80-96); MEAN PLT VOLUME 8.1 fl (7.5-11.1); NEUTROPHILS 71.2 % (42.8-82.8); PLATELET COUNT 168 K/MM3 (134-434); RDW 16.4 % (11.9-15.9); WHITE BLOOD COUNT 5.5 K/mm3 (4.0-10.0)
[2017-04-03 07:35] LABS: ALBUMIN 2.9 g/dl (3.4-5.0); ANION GAP 5 (8-16); BILIRUBIN,TOTAL 0.7 mg/dL (0.2-1.0); CALCIUM 8.7 mg/dL (8.5-10.1); CO2 31 mmol/L (21-32); CREATININE 1.3 mg/dL (0.7-1.3); GLUCOSE,RANDOM 77 mg/dL (74-106); MAGNESIUM 2.3 mg/dL (1.8-2.4); SGOT/AST 15 U/L (15-37); SGPT/ALT 18 U/L (12-78); TOT PROT 7.1 g/dl (6.4-8.2)
[2017-04-03 07:36] LABS: ALK PHOS 74 U/L (45-117)
--- NOTE | 2017-04-03 08:07 | PN ---
Progress Note, Physician Chief Complaint: no chest pain or SOB TELE: Controlled AF, similar pauses while asleep < 3 seconds. - Current Medication List Current Medications: Active Medications Amlodipine Besylate (Norvasc -) 5 mg PO DAILY [facility] Last Admin: 04/02/17 09:50 Dose: 5 mg Aspirin (Asa -) 81 mg PO DAILY [facility] Last Admin: 04/02/17 09:50 Dose: 81 mg Atenolol (Tenormin -) 25 mg PO BID [facility] Last Admin: 04/02/17 21:07 Dose: 25 mg Citalopram Hydrobromide (Celexa -) 20 mg PO DAILY [facility] Last Admin: 04/02/17 09:50 Dose: 20 mg Clonidine (Catapres -) 0.2 mg PO BID [facility] Last Admin: 04/02/17 21:07 Dose: 0.2 mg Furosemide (Lasix -) 60 mg PO DAILY [facility] Last Admin: 04/02/17 09:50 Dose: 60 mg Heparin Sodium (Porcine) (Heparin -) 5,000 unit SQ BID [facility] Last Admin: 04/02/17 21:06 Dose: 5,000 unit Insulin Aspart (Novolog Vial Sliding Scale -) 1 vial SQ [facility] PRN Reason: Protocol Last Admin: 04/03/17 05:59 Dose: Not Given Insulin Detemir (Levemir Vial) 24 units SQ DAILY [facility] Last Admin: 04/02/17 09:52 Dose: 24 units Lisinopril (Prinivil) 5 mg PO DAILY [facility] Last Admin: 04/02/17 09:49 Dose: 5 mg Metformin HCl (Glucophage -) 500 mg PO BIDAC [facility] Last Admin: 04/03/17 05:59 Dose: Not Given Tamsulosin HCl (Flomax -) 0.4 mg PO DAILY@0830 [facility] Last Admin: 04/02/17 09:50 Dose: 0.4 mg - Objective Vital Signs: Vital Signs Temperature 97.8 F 04/03/17 06:00 Pulse Rate 65 04/03/17 06:00 Respiratory Rate 20 04/03/17 06:00 Blood Pressure 150/78 04/03/17 06:00 O2 Sat by Pulse Oximetry (%) 97 04/03/17 06:00 Constitutional: Yes: Calm Eyes: Yes: Conjunctiva Clear Cardiovascular: Yes: Pulse Irregular Respiratory: Yes: CTA Bilaterally (no rales or wheezing) Gastrointestinal: Yes: Soft, Abdomen, Obese Edema: Yes Edema: LLE: 1+, RLE: 1+ Neurological: Yes: Alert, Oriented Labs: CBC, BMP 04/03/17 05:35 04/03/17 05:35 INR, PTT INR 1.33 (0.82-1.09) H 03/27/17 20:43 - ....Imaging EKG: Image Reviewed Problem List - Problems (1) Afib Code(s): I48.91 - UNSPECIFIED ATRIAL FIBRILLATION Qualifiers: Atrial fibrillation type: permanent Qualified Code(s): I48.2 - Chronic atrial fibrillation (2) Acute on chronic diastolic (congestive) heart failure Code(s): I50.33 - ACUTE ON CHRONIC DIASTOLIC (CONGESTIVE) HEART FAILURE (3) Diabetes Code(s): E11.9 - TYPE 2 DIABETES MELLITUS WITHOUT COMPLICATIONS Qualifiers: Diabetes mellitus type: type 2 Diabetes mellitus complication status: with circulatory complication (4) Dyspnea Code(s): R06.00 - DYSPNEA, UNSPECIFIED Qualifiers: Dyspnea type: dyspnea on exertion Qualified Code(s): R06.09 - Other forms of dyspnea (5) Aortic aneurysm Code(s): I71.9 - AORTIC ANEURYSM OF UNSPECIFIED SITE, WITHOUT RUPTURE Qualifiers: Aortic location: thoracic aorta Presence of rupture: without rupture Qualified Code(s): I71.2 - Thoracic aortic aneurysm, without rupture (6) Falls Code(s): W19.XXXA - UNSPECIFIED FALL, INITIAL ENCOUNTER Qualifiers: Encounter type: subsequent encounter Qualified Code(s): W19.XXXD - Unspecified fall, subsequent encounter (7) Liver lacerat [facility] Code(s): S36.113A - LACERATION OF LIVER, UNSPECIFIED DEGREE, INITIAL ENCOUNTER Qualifiers: Encounter type: subsequent encounter Qualified Code(s): S36.113D - Laceration of liver, unspecified degree, subsequent encounter Assessment/Plan IMP: Acute on chronic diastolic CHF secondary to uncontrolled chronic HTN Hypertensive heart disease Permanent AF History of falls, with resultant intra-abdominal bleed several months ago requiring multiple transfusions and pressor support Small thoracic aortic aneurysm Acute on chronic CKD REC: 1.Acute on chronic diastolic CHF: -Likely precipitated by uncontrolled HTN now controlled. -Equivocal history of bronchospasm on metoprolol (may have been wheezing due to decompensated CHF). Has tolerated Atenolol. -Continue Atenolol 25mg BID as rates are well controlled and BP improving. -Continue Telemetry -Continue ORLIN-I, in Lisinopril -Echo recently done here, normal LV function. -Renal artery duplex as outpatient. -Stress MIBI today 2. Hypertensive heart dz: -w/ LA enlargement and permanent AF -Continue ORLIN-I, B-Dm (Atenolol increased to BID) 3. Permanent AF: -See above. -Continue ASA daily -Hold AC given falls history and severe recent severe intra-abdominal bleed. Risks of full AC>>benefits after review of records. Have d/w patient and family () He does not want to take "blood thinners" anymore. 4. Fall: -Extensive falls history documented in outside hospital records, charted separately. 5. Thoracic aortic aneursym: -4.1cm with no sig AR -Can be followed with serial imaging (echo and outpatient CT) -Continue Atenolol 6. Suspected RACHEL: -Outpatient sleep study 7. Acute on chronic CKD: -Creatinine bumped after several days IV Lasix, now stable after switch to PO 8. Dispo: pending stress MIBI result
[2017-04-03] MEDS: TAMSULOSIN HCL 0.4 MG CAP.ER.24H (FP) PO SCH (09:00)
[2017-04-03] MEDS ORDERED: DIPYRIDAMOLE STRESS TEST 50 MG in DEXTROSE 5%-WATER - 40 ML IVPB ONE (10:00)
[2017-04-03] MEDS: INSULIN DETEMIR 100 UNITS/ML MDV SQ SCH (10:00)
[2017-04-03] MEDS: CITALOPRAM HYDROBROMIDE 20 MG TABLET (FP) PO SCH (14:39)
[2017-04-03] MEDS: FUROSEMIDE 40 MG TABLET (FP) PO SCH (14:39)
[2017-04-03] MEDS: amLODIPine BESYLATE 5 MG TABLET (FP) PO SCH (14:39)
[2017-04-03] MEDS: LISINOPRIL 5 MG TABLET (FP) PO SCH (14:40)
[2017-04-03] MEDS: ASPIRIN 81 MG CHEWABLE TABLETS PO SCH (14:40)
[2017-04-03] MEDS: ATENOLOL 25 MG TABLET (FP) PO SCH ×2 (14:40→21:45)
[2017-04-03] MEDS: cloNIDine HCL 0.1 MG TABLET PO SCH ×2 (14:40→21:45)
[2017-04-03] MEDS: HEPARIN NA (PORCINE) 5,000 UNITS/ML 1ML VIAL SQ SCH ×2 (14:41→21:56)
[2017-04-03] MEDS ORDERED: FUROSEMIDE 20 MG TABLET (FP) PO ONE (17:15)
--- NOTE | 2017-04-03 23:57 | PN ---
Progress Note, Physician History of Present Illness: No new complaints - Current Medication List Current Medications: Active Medications Amlodipine Besylate (Norvasc -) 5 mg PO DAILY [facility] Last Admin: 04/03/17 14:39 Dose: 5 mg Aspirin (Asa -) 81 mg PO DAILY [facility] Last Admin: 04/03/17 14:40 Dose: 81 mg Atenolol (Tenormin -) 25 mg PO BID [facility] Last Admin: 04/03/17 21:45 Dose: 25 mg Citalopram Hydrobromide (Celexa -) 20 mg PO DAILY [facility] Last Admin: 04/03/17 14:39 Dose: 20 mg Clonidine (Catapres -) 0.2 mg PO BID [facility] Last Admin: 04/03/17 21:45 Dose: 0.2 mg Furosemide (Lasix -) 40 mg PO BIDLASIX [facility] Heparin Sodium (Porcine) (Heparin -) 5,000 unit SQ BID [facility] Last Admin: 04/03/17 21:56 Dose: 5,000 unit Insulin Aspart (Novolog Vial Sliding Scale -) 1 vial SQ [facility] PRN Reason: Protocol Last Admin: 04/03/17 21:51 Dose: 2 units Insulin Detemir (Levemir Vial) 24 units SQ DAILY [facility] Last Admin: 04/03/17 10:00 Dose: Not Given Lisinopril (Prinivil) 5 mg PO DAILY [facility] Last Admin: 04/03/17 14:40 Dose: 5 mg Metformin HCl (Glucophage -) 500 mg PO BIDAC [facility] Last Admin: 04/03/17 17:25 Dose: 500 mg Tamsulosin HCl (Flomax -) 0.4 mg PO DAILY@0830 [facility] Last Admin: 04/03/17 09:00 Dose: Not Given - Objective Vital Signs: Vital Signs Temperature 97.8 F 04/03/17 21:41 Pulse Rate 69 04/03/17 21:41 Respiratory Rate 20 04/03/17 21:41 Blood Pressure 134/72 04/03/17 21:41 O2 Sat by Pulse Oximetry (%) 97 04/03/17 21:00 Constitutional: Yes: Well Nourished Eyes: Yes: WNL HENT: Yes: WNL Neck: Yes: WNL, Supple Cardiovascular: Yes: Pulse Irregular Respiratory: Yes: WNL, Regular, CTA Bilaterally Gastrointestinal: Yes: WNL, Normal Bowel Sounds, Soft Labs: CBC, BMP 04/03/17 05:35 04/03/17 05:35 INR, PTT INR 1.33 (0.82-1.09) H 03/27/17 20:43 Problem List - Problems (1) Acute on chronic diastolic (congestive) heart failure Assessment/Plan: Cont lasix DC planning for am Code(s): I50.33 - ACUTE ON CHRONIC DIASTOLIC (CONGESTIVE) HEART FAILURE (2) Afib Assessment/Plan: Heart rate controlled No AC due to recurrent falls Stress test today Code(s): I48.91 - UNSPECIFIED ATRIAL FIBRILLATION Qualifiers: Atrial fibrillation type: permanent Qualified Code(s): I48.2 - Chronic atrial fibrillation (3) HTN (hypertension) Assessment/Plan: BP stable Cont norvasc/atenolol/lisinopril/clonidine Code(s): I10 - ESSENTIAL (PRIMARY) HYPERTENSION (4) BPH (benign prostatic hyperplasia) Assessment/Plan: Cont flomax Code(s): N40.0 - BENIGN PROSTATIC HYPERPLASIA WITHOUT LOWER URINRY TRACT SYMP (5) Diabetes Assessment/Plan: Cont metformin/sliding scale w/ novolog/levemir Code(s): E11.9 - TYPE 2 DIABETES MELLITUS WITHOUT COMPLICATIONS Qualifiers: Diabetes mellitus type: type 2 Diabetes mellitus complication status: with circulatory complication (6) Hyperlipidemia Code(s): E78.5 - HYPERLIPIDEMIA, UNSPECIFIED (7) Morbid (severe) obesity due to excess calories Code(s): E66.01 - MORBID (SEVERE) OBESITY DUE TO EXCESS CALORIES
[2017-04-04] MEDS: FUROSEMIDE 40 MG TABLET (FP) PO SCH ×2 (05:52→15:05)
[2017-04-04] MEDS: metFORMIN HCL 500 MG TABLET (FP) PO SCH ×2 (06:27→17:17)
[2017-04-04] MEDS: INSULIN SLIDING SCALE (NOVOLOG) 1 VIAL SQ SCH ×3 (06:28→17:17)
--- NOTE | 2017-04-04 08:15 | PN ---
Progress Note, Physician Chief Complaint: Stress test negative, no ischemia, normal EF TELE: rate controlled AF History of Present Illness: Blood pressure well controlled - Current Medication List Current Medications: Active Medications Amlodipine Besylate (Norvasc -) 5 mg PO DAILY [facility] Last Admin: 04/03/17 14:39 Dose: 5 mg Aspirin (Asa -) 81 mg PO DAILY [facility] Last Admin: 04/03/17 14:40 Dose: 81 mg Atenolol (Tenormin -) 25 mg PO BID [facility] Last Admin: 04/03/17 21:45 Dose: 25 mg Citalopram Hydrobromide (Celexa -) 20 mg PO DAILY [facility] Last Admin: 04/03/17 14:39 Dose: 20 mg Clonidine (Catapres -) 0.2 mg PO BID [facility] Last Admin: 04/03/17 21:45 Dose: 0.2 mg Furosemide (Lasix -) 40 mg PO BIDLASIX [facility] Last Admin: 04/04/17 05:52 Dose: 40 mg Heparin Sodium (Porcine) (Heparin -) 5,000 unit SQ BID [facility] Last Admin: 04/03/17 21:56 Dose: 5,000 unit Insulin Aspart (Novolog Vial Sliding Scale -) 1 vial SQ [facility] PRN Reason: Protocol Last Admin: 04/04/17 06:28 Dose: Not Given Insulin Detemir (Levemir Vial) 24 units SQ DAILY [facility] Last Admin: 04/03/17 10:00 Dose: Not Given Lisinopril (Prinivil) 5 mg PO DAILY [facility] Last Admin: 04/03/17 14:40 Dose: 5 mg Metformin HCl (Glucophage -) 500 mg PO BIDAC [facility] Last Admin: 04/04/17 06:27 Dose: 500 mg Tamsulosin HCl (Flomax -) 0.4 mg PO DAILY@0830 [facility] Last Admin: 04/03/17 09:00 Dose: Not Given - Objective Vital Signs: Vital Signs Temperature 98.1 F 04/04/17 05:42 Pulse Rate 73 04/04/17 05:42 Respiratory Rate 20 04/04/17 05:42 Blood Pressure 149/82 04/04/17 05:42 O2 Sat by Pulse Oximetry (%) 97 04/03/17 21:00 Constitutional: Yes: Calm Eyes: Yes: Conjunctiva Clear Cardiovascular: Yes: Pulse Irregular Respiratory: Yes: CTA Bilaterally (no rales.) Gastrointestinal: Yes: Soft, Abdomen, Obese Edema: Yes Edema: LLE: 1+, RLE: 1+ Neurological: Yes: Alert, Oriented ...Motor Strength: WNL Labs: CBC, BMP 04/03/17 05:35 04/03/17 05:35 INR, PTT INR 1.33 (0.82-1.09) H 03/27/17 20:43 - ....Imaging EKG: Image Reviewed Problem List - Problems (1) Afib Code(s): I48.91 - UNSPECIFIED ATRIAL FIBRILLATION Qualifiers: Atrial fibrillation type: permanent Qualified Code(s): I48.2 - Chronic atrial fibrillation (2) Acute on chronic diastolic (congestive) heart failure Code(s): I50.33 - ACUTE ON CHRONIC DIASTOLIC (CONGESTIVE) HEART FAILURE (3) Diabetes Code(s): E11.9 - TYPE 2 DIABETES MELLITUS WITHOUT COMPLICATIONS Qualifiers: Diabetes mellitus type: type 2 Diabetes mellitus complication status: with circulatory complication (4) Dyspnea Code(s): R06.00 - DYSPNEA, UNSPECIFIED Qualifiers: Dyspnea type: dyspnea on exertion Qualified Code(s): R06.09 - Other forms of dyspnea (5) Aortic aneurysm Code(s): I71.9 - AORTIC ANEURYSM OF UNSPECIFIED SITE, WITHOUT RUPTURE Qualifiers: Aortic location: thoracic aorta Presence of rupture: without rupture Qualified Code(s): I71.2 - Thoracic aortic aneurysm, without rupture (6) Falls Code(s): W19.XXXA - UNSPECIFIED FALL, INITIAL ENCOUNTER Qualifiers: Encounter type: subsequent encounter Qualified Code(s): W19.XXXD - Unspecified fall, subsequent encounter (7) [facility] Code(s): S36.113A - LACERATION OF LIVER, UNSPECIFIED DEGREE, INITIAL ENCOUNTER Qualifiers: Encounter type: subsequent encounter Qualified Code(s): S36.113D - Laceration of liver, unspecified degree, subsequent encounter Assessment/Plan IMP: Acute on chronic diastolic CHF secondary to uncontrolled chronic HTN Hypertensive heart disease Permanent AF History of falls, with resultant intra-abdominal bleed several months ago requiring multiple transfusions and pressor support Small thoracic aortic aneurysm Acute on chronic CKD REC: 1.Acute on chronic diastolic CHF: -Likely precipitated by uncontrolled HTN, now controlled. -Equivocal history of bronchospasm on metoprolol (may have been wheezing due to decompensated CHF). Has tolerated Atenolol. -Continue Atenolol 25mg BID as rates are well controlled and BP improving. -Continue Telemetry -Continue ORLIN-I, in Lisinopril -Echo recently done here, normal LV function. -Renal artery duplex as outpatient. -Stress MIBI yesterday: no ischemia, normal EF. 2. Hypertensive heart dz: -w/ LA enlargement and permanent AF -Continue ORLIN-I, B-Dm (Atenolol increased to BID) 3. Permanent AF: -See above. -Continue ASA daily -Hold AC given falls history and severe recent severe intra-abdominal bleed. Risks of full AC>>benefits after review of records. Have d/w patient and family () He does not want to take "blood thinners" anymore. 4. Fall: -Extensive falls history documented in outside hospital records, charted separately. 5. Thoracic aortic aneursym: -4.1cm with no sig AR -Can be followed with serial imaging (echo and outpatient CT) -Continue Atenolol 6. Suspected RACHEL: -Outpatient sleep study 7. Acute on chronic CKD: -Creatinine bumped after several days IV Lasix, now stable after switch to PO. Would d/c home on Lasix 40mg BID. 8. Dispo: ok for d/c from CV standpoint. Should see PMD in 1 week and cardiology in 2 weeks.
[2017-04-04] MEDS: cloNIDine HCL 0.1 MG TABLET PO SCH (09:19)
[2017-04-04] MEDS: ATENOLOL 25 MG TABLET (FP) PO SCH (09:19)
[2017-04-04] MEDS: amLODIPine BESYLATE 5 MG TABLET (FP) PO SCH (09:19)
[2017-04-04] MEDS: TAMSULOSIN HCL 0.4 MG CAP.ER.24H (FP) PO SCH (09:20)
[2017-04-04] MEDS: CITALOPRAM HYDROBROMIDE 20 MG TABLET (FP) PO SCH (09:21)
[2017-04-04] MEDS: LISINOPRIL 5 MG TABLET (FP) PO SCH (09:21)
[2017-04-04] MEDS: ASPIRIN 81 MG CHEWABLE TABLETS PO SCH (09:21)
[2017-04-04] MEDS: HEPARIN NA (PORCINE) 5,000 UNITS/ML 1ML VIAL SQ SCH (09:21)
[2017-04-04] MEDS: INSULIN DETEMIR 100 UNITS/ML MDV SQ SCH (11:22)
[2017-04-04] MEDS ORDERED: INSULIN (NOVOLOG) ASPART 100 UNITS/ML 10ML VIAL ONE (11:24)
[2017-04-04 21:52] VITALS: BP 127/75; PULSE 68; TEMP 98
== END 2017-04-04 20:42 | disposition home or self-care (01) | DRG 291 ==
LOC: JER 17:48 → JERBED 22:03 → J4W 03-28 00:13
PROVIDERS: ADMIT Internal Medicine; ATTEND Internal Medicine
DX: I13.0 Hypertensive heart and chronic kidney disease with heart failure and stage 1 through stage 4 chronic kidney disease, or unspecified chronic kidney disease (principal); I50.33 Acute on chronic diastolic (congestive) heart failure; N40.0 Benign prostatic hyperplasia without lower urinary tract symptoms; E78.5 Hyperlipidemia, unspecified; I48.2 Chronic atrial fibrillation; I71.2 Thoracic aortic aneurysm, without rupture; E11.22 Type 2 diabetes mellitus with diabetic chronic kidney disease; N18.9 Chronic kidney disease, unspecified; G47.33 Obstructive sleep apnea (adult) (pediatric); S36.113D Laceration of liver, unspecified degree, subsequent encounter; Z91.81 History of falling
CPT/HCPCS: 36415; 71020-TC; 78452-TC; 80048; 80053; 82550; 83605; 83735; 83880; 84484; 85025; 85610; 93005; 93010; 93017; 93970-TC; 99284-25; A9502; J1644